=== PATIENT | female | born 1940 | race Caucasian/White ===

== ENCOUNTER 2017-05-26 02:30 | Inpatient (IN) | payer MEDICARE, MEDICAID ==
[2017-05-26 02:52] VITALS: BP 117/58
[2017-05-26] MEDS ORDERED: Magnesium Hydroxide (MOM) 30 mL UDC PO PRN (02:54)
[2017-05-26] MEDS ORDERED: Triamcinolone Acetonide 0.1% Cream 15 gm TP ONE (03:15)
[2017-05-26] MEDS: INSULIN ASPART SLIDING SCALE 100 UNITS/ML UNIT SUBQ SCH ×4 (06:39→21:09)
[2017-05-26] MEDS: Multivitamin Tab PO SCH (09:36)
[2017-05-26] MEDS: Acetaminophen 500 MG TAB PO PRN (09:41)
--- NOTE | 2017-05-26 14:59 | History & Physical ---
ADMIT DATE: 05/26/2017 HISTORY OF PRESENT ILLNESS: The patient was [facility] for ____ to herself from under Dr. Ayers. I was kindly asked to see the patient. Apparently, this patient initially ____ from [place] because of agitation and danger to others. The patient was sent to put ____ in the Emergency Room where she was seen with impression chronic headache, chronic schizophrenia and DrTrever ____ saw the patient and the patient was [facility]. The patient having paranoia and schizophrenia. The patient initially is from [facility]. The patient is known to have history of multiple problems including dementia, GERD and diabetes. The patient is on multiple medications including risperidone, Diflucan for arthritis and donepezil for her dementia, ____ omeprazole for her GERD and VESIcare for incontinence and insulin. PAST MEDICAL HISTORY: As enumerated above, history of headache, history of chronic anemia, history of azotemia. SYSTEM REVIEW: Difficult to obtain. The patient also has history of UTIs in the past, history of falls in the past. FAMILY HISTORY: Unremarkable. SOCIAL HISTORY: ____ [place] [facility]. PHYSICAL EXAMINATION: GENERAL: The patient on examination is confused, is little bit agitated, was ____. HEAD: Normal. ENT: Normal. NECK: Supple, nontender. LUNGS: Clear. CARDIOVASCULAR SYSTEM: S1, S2 heard. ABDOMEN: Soft. Bowel sounds are heard. CENTRAL NERVOUS SYSTEM: Grossly normal. DIAGNOSES: Severe schizophrenia, severe paranoid ideation, history of ____ and she is admitted. The patient known to have history of hypertension and history of diabetes, on insulin, history of urinary tract infections in the past, history of colon carcinoma in the past, history of ____, history of headache and history of arthritis and history of gastroesophageal reflux disease and history of dementia. PLAN: I will follow all the medical problems along with Dr. Ayers. JOB# [id number]
[2017-05-26] MEDS: Insulin Detemir 100 units/mL 10mL Vial SUBQ SCH (21:10)
--- NOTE | 2017-05-26 21:45 | Psychosocial Evaluation ---
DATE OF SERVICE: 05/26/2017 JUSTIFICATION FOR HOSPITALIZATION: The patient is currently in the hospital with history of schizophrenia, psychotic decompensation. CHIEF COMPLAINT: "I have a headache." HISTORY OF PRESENT ILLNESS: A 76-year-old female, currently in the hospital, history of schizophrenia, psychotic decompensation, anger, and irritability. The patient is confused, does not know why she is in the hospital. She states that she is here because she has a headache. Somewhat poorly oriented, labile, angry, yelling, stating that she feels depressed and frustrated. PAST PSYCHIATRIC HISTORY: Schizophrenia. FAMILY HISTORY: Unknown. SOCIAL HISTORY: The patient states she was born in [place]. She states she is not , no kids. No known drug, alcohol or tobacco history. Currently living in [facility]. MEDICATIONS: Reviewed. MEDICAL HISTORY: Please see full H and P. Also reviewed. MENTAL STATUS EXAMINATION: Stated age. Poor dentition. Fair eye contact. Speech is loud. Mood "I have a headache." Affect upset. Thought processes were tangential. Thought content, no overt SI or HI. Unclear psychotic symptoms, guarded, minimizing the reasons, she is here "I was brought here against my will." Insight and judgment diminished. Impulse control diminished. PROVISIONAL DIAGNOSES: Schizophrenia. Under medical, please see full H and P. ESTIMATED LENGTH OF STAY: 5-7 days. ASSESSMENT: The patient is requiring inpatient hospitalization, psychotic decompensation, anger, irritability, agitation, unable to be cared for at a lower level of care. PLAN: We will continue to monitor. We will adjust medications. Current regimen was reviewed. Currently on Risperdal 1 mg daily. We will likely add a second dose or add Namenda to her regimen. TREATMENT PLAN: Includes group as well as milieu therapy. CONDITIONS FOR DISCHARGE: Improved mood, improved affect, cessation of any SI or HI, better control of her psychotic symptoms and better control of agitation. [facility]# [id number]
[2017-05-27] MEDS: INSULIN ASPART SLIDING SCALE 100 UNITS/ML UNIT SUBQ SCH ×4 (06:39→21:04)
--- NOTE | 2017-05-27 10:45 | Diagnostic Imaging Report ---
CHEST X-RAY: AP view INDICATION: Pneumonia COMPARISON: 03/25/15 FINDINGS: Chronic lung changes are seen with no focal consolidation or effusions. Heart size is normal. Degenerative changes of the spine are noted. IMPRESSION: Chronic lung changes with no focal consolidation identified.
[2017-05-27] MEDS: Multivitamin Tab PO SCH (10:46)
[2017-05-27] MEDS: Acetaminophen 500 MG TAB PO PRN (14:15)
--- NOTE | 2017-05-27 16:07 | General Progress Note ---
Subjective - Review of Systems Events since last encounter: patient remains confused , irritable Objective - Results Recent Labs: Laboratory Last Values POC Glucose 193 MG/DL (70 - 105) H 05/27/17 11:32 Hemoglobin A1c % 7.1 % (4.0-6.0) H 05/26/17 06:56 - Physical Exam Vitals and I&O: Vital Signs Temp 97.6 F 05/27/17 15:53 Pulse 70 05/27/17 15:53 Resp 18 05/27/17 15:53 BP 131/59 05/27/17 15:53 Pulse Ox 95 05/27/17 15:53 Intake & Output 05/26/17 05/27/17 05/27/17 18:59 06:59 18:59 Intake Total 1000 240 Balance 1000 240 Intake: Oral 1000 240 Other: # Voids 4 2 # Bowel Movements 1 0 Active Medications: Current Medications Acetaminophen (Tylenol Extra Strength) 500 mg PO Q4H PRN PRN Reason: Pain (Mild) Stop: 07/25/17 03:06 Last Admin: 05/27/17 14:15 Dose: 500 mg Donepezil HCl (Aricept) 5 mg PO DAILY [facility] Stop: 07/25/17 08:59 Last Admin: 05/27/17 10:46 Dose: 5 mg Ibuprofen (Motrin) 400 mg PO Q8H PRN PRN Reason: Pain (Moderate) Stop: 07/25/17 03:05 Insulin Aspart (Novolog Insulin Sliding Scale) 0 units SUBQ ACHS [facility] PRN Reason: Protocol Stop: 07/25/17 07:29 Last Admin: 05/27/17 11:41 Dose: 2 units Insulin Detemir (Levemir Insulin) 40 units SUBQ HS [facility] PRN Reason: Protocol Stop: 07/25/17 20:59 Last Admin: 05/26/17 21:10 Dose: 40 units Lorazepam (Ativan) 0.5 mg PO Q6H PRN; Protocol PRN Reason: Anxiety/Agitation Stop: 07/25/17 02:53 Last Admin: 05/26/17 17:09 Dose: 0.5 mg Magnesium Hydroxide (Milk Of Magnesia) 30 ml PO HS PRN PRN Reason: Constipation Stop: 07/25/17 02:53 Memantine (Namenda) 5 mg PO DAILY [facility] Stop: 07/25/17 08:59 Last Admin: 05/27/17 10:46 Dose: 5 mg Multivitamins/Vitamin C (Theragran) 1 tab PO DAILY [facility] Stop: 07/25/17 08:59 Last Admin: 05/27/17 10:46 Dose: 1 tab Risperidone (Risperdal) 1 mg PO DAILY [facility] PRN Reason: Protocol Stop: 07/25/17 08:59 Last Admin: 05/27/17 10:46 Dose: 1 mg Zolpidem Tartrate (Ambien) 5 mg PO HS PRN PRN Reason: Insomnia Stop: 07/25/17 02:53 General: No acute distress HEENT: Atraumatic Cardiovascular: Regular rate Abdomen: Bowel sounds - Procedures Procedures: Procedures Procedure Code Date GROUP PSYCHOTHERAPY 56875 02/29/16 GROUP PSYCHOTHERAPY GZHZZZZ 02/29/16 OTHER GROUP THERAPY 94.44 03/25/15 Assessment/Plan - Problem List Patient Problems: All Active Problems Diabetes (Acute) E11.9 Hallucination (Acute) R44.3 Hypertension (Acute) I10 Mental health problem (Acute) F48.9 Psychosis (Acute) F29 - Plan Plan: as per psych as problems arise will monitor
[2017-05-27] MEDS: Insulin Detemir 100 units/mL 10mL Vial SUBQ SCH (21:04)
--- NOTE | 2017-05-28 02:34 | Progress Notes ---
DATE: 05/27/[address] Ayers. This is a 76-year-old female who was admitted yesterday with a history of schizophrenia. She has psychotic decompensation because of complaints of headache. The patient was agitated, angry, irritable, confused and not able to tell me why she was in the hospital, where she is, because she does have a headache. She was fully oriented, labile, angry, yelling and screaming. She has been started on Aricept 5 mg at bedtime, Namenda 5 mg daily and Risperdal 1 mg daily with no side effects, no sedation, no nausea, no extrapyramidal symptoms. I will be asking the medical doctor, Dr. Skinner to consult regarding her complaint of headache and so far no side effects, no sedation, no nausea, no extrapyramidal symptoms. We will continue to work with the patient in group therapy, milieu therapy, adjust the medication as needed. JOB# [id number]
--- NOTE | 2017-05-28 03:57 | Admit Criteria Form ---
Admit Criteria Forms - Admit Criteria Diagnosis: PSYCHIATRIC DISORDERS (Place 'X' for any and all applicable criteria): Ongoing inpatient care may be needed for 1 or more of the following(1)(2)(3)(4)( 6)(7)(8): [ ]I. Danger to self or others not manageable at lower level of care. [ ]II. Grave disability (eg, inability to perform self care necessary at lower level of care) [X]III. Agitation or inappropriate behavior interfering with care for primary condition (eg, attempting to discontinue lines or drains prematurely, unable to cooperate with respiratory care) [ ]IV. Severe disability or disorder indicated by ALL of the following: [ ]a) Severe behavioral health disorder-related symptoms or condition indicated by 1 or more of the following: [ ]i) Severe problem with cognition, memory, judgment, or impulse control [ ]ii) Severe clinical manifestations (eg, hallucinations, delusions, other acute psychotic symptoms, mik, extreme agitation or anxiety) [ ]b) Patient management at lower level of care is not feasible until acute intervention or modification is initiated. Extended stay beyond goal length of stay for the primary condition may be needed until ALLof the following are present(1)(2)(3)(4)(722)(23): [ ]a) Danger to self or others is absent or manageable at lower level of care [ ]b) Behavior crisis management, including physical or chemical restraints, is required and is not available at a lower level of care. [ ]c) Behavioral symptoms (e.g., agitation, somnolence, inappropriate behavior) are present, and are not manageable at a lower level of care. [ ]d) Patient cannot understand follow-up treatment and crisis plan. [ ]e) Provider and supports are sufficiently available at lower level of care. [ ]f) Patient can participate (e.g., verify absence of plan for harm) and is in needed of monitoring. The original [facility] [employer] content created by [facility] has been revised. The portions of the content which have been revised are identified through the use of italic text or in bold, and [employer] has neither reviewed nor approved the modified material. All other unmodified content is copyright [facility] [employer]. Please see references footnoted in the original [facility] edition 2017
[2017-05-28] MEDS: INSULIN ASPART SLIDING SCALE 100 UNITS/ML UNIT SUBQ SCH ×4 (06:40→21:49)
[2017-05-28] MEDS: Multivitamin Tab PO SCH (09:04)
--- NOTE | 2017-05-28 15:46 | General Progress Note ---
Objective - Results Recent Labs: Laboratory Last Values POC Glucose 216 MG/DL (70 - 105) H 05/28/17 11:40 Hemoglobin A1c % 7.1 % (4.0-6.0) H 05/26/17 06:56 - Physical Exam Vitals and I&O: Vital Signs Temp 98.6 F 05/28/17 06:03 Pulse 55 05/28/17 06:03 Resp 18 05/28/17 06:03 BP 122/52 05/28/17 06:03 Pulse Ox 96 05/28/17 06:03 Intake & Output 05/27/17 05/28/17 05/28/17 18:59 06:59 18:59 Intake Total 2400 120 Balance 2400 120 Intake: Oral 2400 120 Other: # Voids 4 3 # Bowel Movements 1 0 Active Medications: Current Medications Acetaminophen (Tylenol Extra Strength) 500 mg PO Q4H PRN PRN Reason: Pain (Mild) Stop: 07/25/17 03:06 Last Admin: 05/27/17 14:15 Dose: 500 mg Donepezil HCl (Aricept) 5 mg PO DAILY [facility] Stop: 07/25/17 08:59 Last Admin: 05/28/17 09:04 Dose: 5 mg Ibuprofen (Motrin) 400 mg PO Q8H PRN PRN Reason: Pain (Moderate) Stop: 07/25/17 03:05 Insulin Aspart (Novolog Insulin Sliding Scale) 0 units SUBQ ACHS LINA PRN Reason: Protocol Stop: 07/25/17 07:29 Last Admin: 05/28/17 11:58 Dose: 4 units Insulin Detemir (Levemir Insulin) 40 units SUBQ HS [facility] PRN Reason: Protocol Stop: 07/25/17 20:59 Last Admin: 05/27/17 21:04 Dose: 40 units Lorazepam (Ativan) 0.5 mg PO Q6H PRN; Protocol PRN Reason: Anxiety/Agitation Stop: 07/25/17 02:53 Last Admin: 05/28/17 09:14 Dose: 0.5 mg Magnesium Hydroxide (Milk Of Magnesia) 30 ml PO HS PRN PRN Reason: Constipation Stop: 07/25/17 02:53 Memantine (Namenda) 5 mg PO DAILY [facility] Stop: 07/25/17 08:59 Last Admin: 05/28/17 09:04 Dose: 5 mg Multivitamins/Vitamin C (Theragran) 1 tab PO DAILY [facility] Stop: 07/25/17 08:59 Last Admin: 05/28/17 09:04 Dose: 1 tab Risperidone (Risperdal) 1 mg PO DAILY [facility] PRN Reason: Protocol Stop: 07/25/17 08:59 Last Admin: 05/28/17 09:04 Dose: 1 mg Zolpidem Tartrate (Ambien) 5 mg PO HS PRN PRN Reason: Insomnia Stop: 07/25/17 02:53 - Procedures Procedures: Procedures Procedure Code Date GROUP PSYCHOTHERAPY 61848 02/29/16 GROUP PSYCHOTHERAPY GZHZZZZ 02/29/16 OTHER GROUP THERAPY 94.44 03/25/15 Assessment/Plan - Problem List Patient Problems: All Active Problems Diabetes (Acute) E11.9 Hallucination (Acute) R44.3 Hypertension (Acute) I10 Mental health problem (Acute) F48.9 Psychosis (Acute) F29 - Plan Plan: as per psych as problems arise will monitor
[2017-05-28] MEDS: Insulin Detemir 100 units/mL 10mL Vial SUBQ SCH (21:50)
[2017-05-29] MEDS: INSULIN ASPART SLIDING SCALE 100 UNITS/ML UNIT SUBQ SCH ×4 (06:39→21:06)
--- NOTE | 2017-05-29 08:16 | General Progress Note ---
Subjective - Review of Systems Events since last encounter: patient continues to be irritable Objective - Results Recent Labs: Laboratory Last Values POC Glucose 147 MG/DL (70 - 105) H 05/29/17 06:17 Hemoglobin A1c % 7.1 % (4.0-6.0) H 05/26/17 06:56 - Physical Exam Vitals and I&O: Vital Signs Temp 97.9 F 05/29/17 05:42 Pulse 64 05/29/17 05:42 Resp 20 05/29/17 05:42 BP 138/52 05/29/17 05:42 Pulse Ox 93 05/29/17 05:42 Intake & Output 05/28/17 05/29/17 05/29/17 18:59 06:59 18:59 Intake Total 2400 120 Balance 2400 120 Intake: Oral 2400 120 Other: # Voids 4 2 # Bowel Movements 1 1 Active Medications: Current Medications Acetaminophen (Tylenol Extra Strength) 500 mg PO Q4H PRN PRN Reason: Pain (Mild) Stop: 07/25/17 03:06 Last Admin: 05/27/17 14:15 Dose: 500 mg Donepezil HCl (Aricept) 5 mg PO DAILY [facility] Stop: 07/25/17 08:59 Last Admin: 05/28/17 09:04 Dose: 5 mg Ibuprofen (Motrin) 400 mg PO Q8H PRN PRN Reason: Pain (Moderate) Stop: 07/25/17 03:05 Insulin Aspart (Novolog Insulin Sliding Scale) 0 units SUBQ ACHS [facility] PRN Reason: Protocol Stop: 07/25/17 07:29 Last Admin: 05/29/17 06:39 Dose: Not Given Insulin Detemir (Levemir Insulin) 40 units SUBQ HS [facility] PRN Reason: Protocol Stop: 07/25/17 20:59 Last Admin: 05/28/17 21:50 Dose: 40 units Lorazepam (Ativan) 0.5 mg PO Q6H PRN; Protocol PRN Reason: Anxiety/Agitation Stop: 07/25/17 02:53 Last Admin: 05/28/17 09:14 Dose: 0.5 mg Magnesium Hydroxide (Milk Of Magnesia) 30 ml PO HS PRN PRN Reason: Constipation Stop: 07/25/17 02:53 Memantine (Namenda) 5 mg PO DAILY [facility] Stop: 07/25/17 08:59 Last Admin: 05/28/17 09:04 Dose: 5 mg Multivitamins/Vitamin C (Theragran) 1 tab PO DAILY [facility] Stop: 07/25/17 08:59 Last Admin: 05/28/17 09:04 Dose: 1 tab Risperidone (Risperdal) 1 mg PO BID [facility] PRN Reason: Protocol Stop: 07/28/17 08:59 Zolpidem Tartrate (Ambien) 5 mg PO HS PRN PRN Reason: Insomnia Stop: 07/25/17 02:53 General: No acute distress HEENT: Atraumatic Cardiovascular: Regular rate Abdomen: Bowel sounds - Procedures Procedures: Procedures Procedure Code Date GROUP PSYCHOTHERAPY 15062 02/29/16 GROUP PSYCHOTHERAPY GZHZZZZ 02/29/16 OTHER GROUP THERAPY 94.44 03/25/15 Assessment/Plan - Problem List Patient Problems: All Active Problems Diabetes (Acute) E11.9 Hallucination (Acute) R44.3 Hypertension (Acute) I10 Mental health problem (Acute) F48.9 Psychosis (Acute) F29 - Plan Plan: as per psych as problems arise will monitor
[2017-05-29] MEDS: Multivitamin Tab PO SCH (09:11)
[2017-05-29] MEDS: Insulin Detemir 100 units/mL 10mL Vial SUBQ SCH (21:03)
[2017-05-30] MEDS: INSULIN ASPART SLIDING SCALE 100 UNITS/ML UNIT SUBQ SCH ×4 (06:40→22:24)
[2017-05-30] MEDS: Multivitamin Tab PO SCH (08:23)
[2017-05-30] MEDS: Acetaminophen 500 MG TAB PO PRN (10:33)
--- NOTE | 2017-05-30 10:43 | General Progress Note ---
Subjective - Review of Systems Events since last encounter: patient agitated remains the same Objective - Results Recent Labs: Laboratory Last Values POC Glucose 134 MG/DL (70 - 105) H 05/30/17 06:22 Hemoglobin A1c % 7.1 % (4.0-6.0) H 05/26/17 06:56 - Physical Exam Vitals and I&O: Vital Signs Temp 98.2 F 05/29/17 14:00 Pulse 65 05/29/17 14:00 Resp 19 05/29/17 20:00 BP 139/57 05/29/17 14:00 Pulse Ox 97 05/29/17 14:00 Intake & Output 05/29/17 05/30/17 05/30/17 18:59 06:59 18:59 Intake Total 1000 Balance 1000 Intake: Oral 1000 Other: # Voids 3 # Bowel Movements 1 Active Medications: Current Medications Acetaminophen (Tylenol Extra Strength) 500 mg PO Q4H PRN PRN Reason: Pain (Mild) Stop: 07/25/17 03:06 Last Admin: 05/30/17 10:33 Dose: 500 mg Donepezil HCl (Aricept) 5 mg PO DAILY [facility] Stop: 07/25/17 08:59 Last Admin: 05/30/17 08:24 Dose: 5 mg Ibuprofen (Motrin) 400 mg PO Q8H PRN PRN Reason: Pain (Moderate) Stop: 07/25/17 03:05 Last Admin: 05/29/17 09:11 Dose: 400 mg Insulin Aspart (Novolog Insulin Sliding Scale) 0 units SUBQ ACHS [facility] PRN Reason: Protocol Stop: 07/25/17 07:29 Last Admin: 05/30/17 06:40 Dose: Not Given Insulin Detemir (Levemir Insulin) 40 units SUBQ HS [facility] PRN Reason: Protocol Stop: 07/25/17 20:59 Last Admin: 05/29/17 21:03 Dose: 40 units Lorazepam (Ativan) 0.5 mg PO Q6H PRN PRN Reason: ANXIETY/AGITATION Stop: 07/28/17 12:07 Magnesium Hydroxide (Milk Of Magnesia) 30 ml PO HS PRN PRN Reason: Constipation Stop: 07/25/17 02:53 Memantine (Namenda) 5 mg PO DAILY [facility] Stop: 07/25/17 08:59 Last Admin: 05/30/17 08:24 Dose: 5 mg Multivitamins/Vitamin C (Theragran) 1 tab PO DAILY [facility] Stop: 07/25/17 08:59 Last Admin: 05/30/17 08:23 Dose: 1 tab Risperidone (Risperdal) 1 mg PO BID [facility] PRN Reason: Protocol Stop: 07/28/17 08:59 Last Admin: 05/30/17 08:24 Dose: 1 mg Zolpidem Tartrate (Ambien) 5 mg PO HS PRN PRN Reason: Insomnia Stop: 07/25/17 02:53 General: No acute distress Cardiovascular: Regular rate Abdomen: Bowel sounds - Procedures Procedures: Procedures Procedure Code Date GROUP PSYCHOTHERAPY 50254 02/29/16 GROUP PSYCHOTHERAPY GZHZZZZ 02/29/16 OTHER GROUP THERAPY 94.44 03/25/15 Assessment/Plan - Problem List Patient Problems: All Active Problems Diabetes (Acute) E11.9 Hallucination (Acute) R44.3 Hypertension (Acute) I10 Mental health problem (Acute) F48.9 Psychosis (Acute) F29 - Plan Plan: as per psych as problems arise will monitor
[2017-05-30] MEDS: Insulin Detemir 100 units/mL 10mL Vial SUBQ SCH (22:24)
[2017-05-31] MEDS: INSULIN ASPART SLIDING SCALE 100 UNITS/ML UNIT SUBQ SCH ×4 (06:38→20:50)
[2017-05-31] MEDS: Multivitamin Tab PO SCH (09:15)
[2017-05-31] MEDS: Acetaminophen 500 MG TAB PO PRN (09:18)
--- NOTE | 2017-05-31 09:59 | General Progress Note ---
Subjective - Review of Systems Events since last encounter: no change Objective - Results Recent Labs: Laboratory Last Values POC Glucose 149 MG/DL (70 - 105) H 05/31/17 06:37 Hemoglobin A1c % 7.1 % (4.0-6.0) H 05/26/17 06:56 - Physical Exam Vitals and I&O: Vital Signs Temp 98.7 F 05/31/17 07:04 Pulse 72 05/31/17 07:04 Resp 19 05/31/17 07:04 BP 167/69 05/31/17 07:04 Pulse Ox 99 05/31/17 07:04 Intake & Output 05/30/17 05/31/17 05/31/17 18:59 06:59 18:59 Weight (lbs) 77.746 kg Other: # Voids 1 Active Medications: Current Medications Acetaminophen (Tylenol Extra Strength) 500 mg PO Q4H PRN PRN Reason: Pain (Mild) Stop: 07/25/17 03:06 Last Admin: 05/31/17 09:18 Dose: 500 mg Donepezil HCl (Aricept) 5 mg PO DAILY [facility] Stop: 07/25/17 08:59 Last Admin: 05/31/17 09:15 Dose: 5 mg Ibuprofen (Motrin) 400 mg PO Q8H PRN PRN Reason: Pain (Moderate) Stop: 07/25/17 03:05 Last Admin: 05/29/17 09:11 Dose: 400 mg Insulin Aspart (Novolog Insulin Sliding Scale) 0 units SUBQ ACHS [facility] PRN Reason: Protocol Stop: 07/25/17 07:29 Last Admin: 05/31/17 06:38 Dose: Not Given Insulin Detemir (Levemir Insulin) 40 units SUBQ HS [facility] PRN Reason: Protocol Stop: 07/25/17 20:59 Last Admin: 05/30/17 22:24 Dose: 40 units Lorazepam (Ativan) 0.5 mg PO Q6H PRN PRN Reason: ANXIETY/AGITATION Stop: 07/28/17 12:07 Magnesium Hydroxide (Milk Of Magnesia) 30 ml PO HS PRN PRN Reason: Constipation Stop: 07/25/17 02:53 Memantine (Namenda) 5 mg PO DAILY [facility] Stop: 07/25/17 08:59 Last Admin: 05/31/17 09:15 Dose: 5 mg Multivitamins/Vitamin C (Theragran) 1 tab PO DAILY [facility] Stop: 07/25/17 08:59 Last Admin: 05/31/17 09:15 Dose: 1 tab Risperidone (Risperdal) 1 mg PO BID [facility] PRN Reason: Protocol Stop: 07/28/17 08:59 Last Admin: 05/31/17 09:15 Dose: 1 mg Zolpidem Tartrate (Ambien) 5 mg PO HS PRN PRN Reason: Insomnia Stop: 07/25/17 02:53 General: No acute distress HEENT: Atraumatic Neck: Supple Cardiovascular: Regular rate Abdomen: Bowel sounds Neurological: Normal gait - Procedures Procedures: Procedures Procedure Code Date GROUP PSYCHOTHERAPY 58966 02/29/16 GROUP PSYCHOTHERAPY GZHZZZZ 02/29/16 OTHER GROUP THERAPY 94.44 03/25/15 Assessment/Plan - Problem List Patient Problems: All Active Problems Diabetes (Acute) E11.9 Hallucination (Acute) R44.3 Hypertension (Acute) I10 Mental health problem (Acute) F48.9 Psychosis (Acute) F29 - Plan Plan: as per psych as problems arise will monitor Nutritional Asmnt/Malnutr-PDOC - Dietary Evaluation Malnutrition Findings (Please click <Entered> for more info): Nutritional Asmnt/Malnutrition Start: 05/30/17 12: 19 Text: Status: Complete Freq: Document 05/30/17 12:19 GSUN (Rec: 05/30/17 12:37 [email or web address] [email or web address]) Nutritional Asmnt/Malnutrition Patient General Information Nutritional Screening Moderate Risk Screening Diagnosis Severe schizophrenia, severe pranoid ideation Pertinent Medical Hx/Surgical Hx Dementia, GERD, DM, arthritis, hx headache, hx chornic anemia, hx azotemia, hx HTN, hx UTI, hx colon carcinoma Subjective Information 76 year old female from SNF. Spoke to pt resting in bed. Pt was pleasant, provided short responses. Unable to provide DM edu due to cognition. Avg PO intake 92% of meals since adm, meeting nutritional needs . Pt denied nutritional concerns at this time. Pt appeared overweight. Most teeth intact, no difficulties eating. Current Diet Order/ Nutrition Support Regular, HIMANSHU Pertinent Medications Novolog, Levemir, MOM, Theragran Pertinent Labs 05/26: A1c 7.1H 05/30: POC glucose 116-262 past 3 days. 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 Current %PO Good (75-100%) Estimated Nutritional Goals Calories/Kcals/Kg IBW 120lb/54.5kg Kcals Calculated 1363-1635kcal (25-30kcal/kg) Protein Calculated 55g (1g/kg) Fluid: ml 1363-1635ml (1ml/kcal) Nutritional Problem 1. Problem Problem Altered nutrition related laboratory values related to Etiology DM aeb Signs/Symptoms: A1c 7.1H, elevated POC glucose Intervention/Recommendation Comments 1. Recommend [id number], HIMANSHU. Expected Outcomes/Goals Expected Outcomes/Goals 1. PO intake continue to meet at least 75% of estimated nutritional needs.
[2017-05-31] MEDS: Insulin Detemir 100 units/mL 10mL Vial SUBQ SCH (20:50)
[2017-06-01] MEDS: INSULIN ASPART SLIDING SCALE 100 UNITS/ML UNIT SUBQ SCH ×4 (06:35→21:12)
[2017-06-01] MEDS: Multivitamin Tab PO SCH (10:01)
[2017-06-01] MEDS: Insulin Detemir 100 units/mL 10mL Vial SUBQ SCH (21:13)
[2017-06-02] MEDS: INSULIN ASPART SLIDING SCALE 100 UNITS/ML UNIT SUBQ SCH ×4 (06:30→20:40)
[2017-06-02] MEDS: Multivitamin Tab PO SCH (09:40)
--- NOTE | 2017-06-02 17:01 | General Progress Note ---
Subjective - Review of Systems Events since last encounter: no distress Objective - Results Recent Labs: Laboratory Last Values POC Glucose 148 MG/DL (70 - 105) H 06/02/17 12:05 Hemoglobin A1c % 7.1 % (4.0-6.0) H 05/26/17 06:56 - Physical Exam Vitals and I&O: Vital Signs Temp 97.6 F 06/02/17 14:00 Pulse 72 06/02/17 14:00 Resp 20 06/02/17 14:00 BP 140/66 06/02/17 14:00 Pulse Ox 98 06/02/17 14:00 Intake & Output 06/01/17 06/02/17 06/02/17 18:59 06:59 18:59 Intake Total 900 120 Balance 900 120 Intake: Oral 900 120 Other: # Voids 4 4 # Bowel Movements 1 Stool Characteristics Formed Active Medications: Current Medications Acetaminophen (Tylenol Extra Strength) 500 mg PO Q4H PRN PRN Reason: Pain (Mild) Stop: 07/25/17 03:06 Last Admin: 05/31/17 09:18 Dose: 500 mg Donepezil HCl (Aricept) 5 mg PO DAILY [facility] Stop: 07/25/17 08:59 Last Admin: 06/02/17 09:40 Dose: 5 mg Ibuprofen (Motrin) 400 mg PO Q8H PRN PRN Reason: Pain (Moderate) Stop: 07/25/17 03:05 Last Admin: 05/29/17 09:11 Dose: 400 mg Insulin Aspart (Novolog Insulin Sliding Scale) 0 units SUBQ ACHS [facility] PRN Reason: Protocol Stop: 07/25/17 07:29 Last Admin: 06/02/17 12:12 Dose: Not Given Insulin Detemir (Levemir Insulin) 40 units SUBQ HS [facility] PRN Reason: Protocol Stop: 07/25/17 20:59 Last Admin: 06/01/17 21:13 Dose: 40 units Lorazepam (Ativan) 0.5 mg PO Q6H PRN PRN Reason: ANXIETY/AGITATION Stop: 07/28/17 12:07 Magnesium Hydroxide (Milk Of Magnesia) 30 ml PO HS PRN PRN Reason: Constipation Stop: 07/25/17 02:53 Memantine (Namenda) 5 mg PO BID [facility] Stop: 07/31/17 16:59 Last Admin: 06/02/17 16:46 Dose: 5 mg Multivitamins/Vitamin C (Theragran) 1 tab PO DAILY [facility] Stop: 07/25/17 08:59 Last Admin: 06/02/17 09:40 Dose: 1 tab Risperidone (Risperdal) 1.25 mg PO BID [facility] PRN Reason: Protocol Stop: 08/01/17 11:44 Last Admin: 06/02/17 16:46 Dose: 1.25 mg Zolpidem Tartrate (Ambien) 5 mg PO HS PRN PRN Reason: Insomnia Stop: 07/25/17 02:53 General: Cooperative, No acute distress Cardiovascular: Regular rate - Procedures Procedures: Procedures Procedure Code Date GROUP PSYCHOTHERAPY 31366 02/29/16 GROUP PSYCHOTHERAPY GZHZZZZ 02/29/16 OTHER GROUP THERAPY 94.44 03/25/15 Assessment/Plan - Problem List Patient Problems: All Active Problems Diabetes (Acute) E11.9 Hallucination (Acute) R44.3 Hypertension (Acute) I10 Mental health problem (Acute) F48.9 Psychosis (Acute) F29 - Plan Plan: as per psych as problems arise will monitor Nutritional Asmnt/Malnutr-PDOC - Dietary Evaluation Malnutrition Findings (Please click <Entered> for more info): Nutritional Asmnt/Malnutrition Start: 05/30/17 12: 19 Text: Status: Complete Freq: Document 05/30/17 12:19 GSUN (Rec: 05/30/17 12:37 GSUN [email or web address]) Nutritional Asmnt/Malnutrition Patient General Information Nutritional Screening Moderate Risk Screening Diagnosis Severe schizophrenia, severe pranoid ideation Pertinent Medical Hx/Surgical Hx Dementia, GERD, DM, arthritis, hx headache, hx chornic anemia, hx azotemia, hx HTN, hx UTI, hx colon carcinoma Subjective Information 76 year old female from SNF. Spoke to pt resting in bed. Pt was pleasant, provided short responses. Unable to provide DM edu due to cognition. Avg PO intake 92% of meals since adm, meeting nutritional needs . Pt denied nutritional concerns at this time. Pt appeared overweight. Most teeth intact, no difficulties eating. Current Diet Order/ Nutrition Support Regular, HIMANSHU Pertinent Medications Novolog, Levemir, MOM, Theragran Pertinent Labs 05/26: A1c 7.1H 05/30: POC glucose 116-262 past 3 days. 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 Current %PO Good (75-100%) Estimated Nutritional Goals Calories/Kcals/Kg IBW 120lb/54.5kg Kcals Calculated 1363-1635kcal (25-30kcal/kg) Protein Calculated 55g (1g/kg) Fluid: ml 1363-1635ml (1ml/kcal) Nutritional Problem 1. Problem Problem Altered nutrition related laboratory values related to Etiology DM aeb Signs/Symptoms: A1c 7.1H, elevated POC glucose Intervention/Recommendation Comments 1. Recommend [id number], HIMANSHU. Expected Outcomes/Goals Expected Outcomes/Goals 1. PO intake continue to meet at least 75% of estimated nutritional needs.
[2017-06-02] MEDS: Insulin Detemir 100 units/mL 10mL Vial SUBQ SCH (20:41)
[2017-06-03] MEDS: INSULIN ASPART SLIDING SCALE 100 UNITS/ML UNIT SUBQ SCH ×4 (06:34→21:24)
[2017-06-03] MEDS: Multivitamin Tab PO SCH (08:31)
--- NOTE | 2017-06-03 12:44 | General Progress Note ---
Subjective - Review of Systems Events since last encounter: no distress Objective - Results Recent Labs: Laboratory Last Values POC Glucose 121 MG/DL (70 - 105) H 06/03/17 11:34 Hemoglobin A1c % 7.1 % (4.0-6.0) H 05/26/17 06:56 - Physical Exam Vitals and I&O: Vital Signs Temp 98.1 F 06/03/17 06:23 Pulse 64 06/03/17 10:00 Resp 19 06/03/17 10:00 BP 141/78 06/03/17 06:23 Pulse Ox 96 06/03/17 06:23 Intake & Output 06/02/17 06/03/17 06/03/17 18:59 06:59 18:59 Intake Total 900 240 Balance 900 240 Intake: Oral 900 240 Other: # Voids 4 1 # Bowel Movements 1 0 Stool Characteristics Formed Active Medications: Current Medications Acetaminophen (Tylenol Extra Strength) 500 mg PO Q4H PRN PRN Reason: Pain (Mild) Stop: 07/25/17 03:06 Last Admin: 05/31/17 09:18 Dose: 500 mg Donepezil HCl (Aricept) 5 mg PO DAILY [facility] Stop: 07/25/17 08:59 Last Admin: 06/03/17 08:32 Dose: 5 mg Ibuprofen (Motrin) 400 mg PO Q8H PRN PRN Reason: Pain (Moderate) Stop: 07/25/17 03:05 Last Admin: 05/29/17 09:11 Dose: 400 mg Insulin Aspart (Novolog Insulin Sliding Scale) 0 units SUBQ ACHS [facility] PRN Reason: Protocol Stop: 07/25/17 07:29 Last Admin: 06/03/17 11:40 Dose: Not Given Insulin Detemir (Levemir Insulin) 40 units SUBQ HS [facility] PRN Reason: Protocol Stop: 07/25/17 20:59 Last Admin: 06/02/17 20:41 Dose: 40 units Lorazepam (Ativan) 0.5 mg PO Q6H PRN PRN Reason: ANXIETY/AGITATION Stop: 07/28/17 12:07 Last Admin: 06/03/17 08:31 Dose: 0.5 mg Magnesium Hydroxide (Milk Of Magnesia) 30 ml PO HS PRN PRN Reason: Constipation Stop: 07/25/17 02:53 Memantine (Namenda) 5 mg PO BID [facility] Stop: 07/31/17 16:59 Last Admin: 06/03/17 08:31 Dose: 5 mg Multivitamins/Vitamin C (Theragran) 1 tab PO DAILY [facility] Stop: 07/25/17 08:59 Last Admin: 06/03/17 08:31 Dose: 1 tab Risperidone (Risperdal) 2 mg PO BID [facility] PRN Reason: Protocol Stop: 08/01/17 11:44 Zolpidem Tartrate (Ambien) 5 mg PO HS PRN PRN Reason: Insomnia Stop: 07/25/17 02:53 General: No acute distress HEENT: Atraumatic Neck: Thyromegaly Cardiovascular: Normal S1 - Procedures Procedures: Procedures Procedure Code Date GROUP PSYCHOTHERAPY 92348 02/29/16 GROUP PSYCHOTHERAPY GZHZZZZ 02/29/16 OTHER GROUP THERAPY 94.44 03/25/15 Assessment/Plan - Problem List Patient Problems: All Active Problems Diabetes (Acute) E11.9 Hallucination (Acute) R44.3 Hypertension (Acute) I10 Mental health problem (Acute) F48.9 Psychosis (Acute) F29 - Plan Plan: as per psych as problems arise will monitor Nutritional Asmnt/Malnutr-PDOC - Dietary Evaluation Malnutrition Findings (Please click <Entered> for more info): Nutritional Asmnt/Malnutrition Start: 05/30/17 12: 19 Text: Status: Complete Freq: Document 05/30/17 12:19 GSUN (Rec: 05/30/17 12:37 GSUN [email or web address]) Nutritional Asmnt/Malnutrition Patient General Information Nutritional Screening Moderate Risk Screening Diagnosis Severe schizophrenia, severe pranoid ideation Pertinent Medical Hx/Surgical Hx Dementia, GERD, DM, arthritis, hx headache, hx chornic anemia, hx azotemia, hx HTN, hx UTI, hx colon carcinoma Subjective Information 76 year old female from SNF. Spoke to pt resting in bed. Pt was pleasant, provided short responses. Unable to provide DM edu due to cognition. Avg PO intake 92% of meals since adm, meeting nutritional needs . Pt denied nutritional concerns at this time. Pt appeared overweight. Most teeth intact, no difficulties eating. Current Diet Order/ Nutrition Support Regular, HIMANSHU Pertinent Medications Novolog, Levemir, MOM, Theragran Pertinent Labs 05/26: A1c 7.1H 05/30: POC glucose 116-262 past 3 days. 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 Current %PO Good (75-100%) Estimated Nutritional Goals Calories/Kcals/Kg IBW 120lb/54.5kg Kcals Calculated 1363-1635kcal (25-30kcal/kg) Protein Calculated 55g (1g/kg) Fluid: ml 1363-1635ml (1ml/kcal) Nutritional Problem 1. Problem Problem Altered nutrition related laboratory values related to Etiology DM aeb Signs/Symptoms: A1c 7.1H, elevated POC glucose Intervention/Recommendation Comments 1. Recommend [id number], HIMANSHU. Expected Outcomes/Goals Expected Outcomes/Goals 1. PO intake continue to meet at least 75% of estimated nutritional needs.
[2017-06-03] MEDS: Insulin Detemir 100 units/mL 10mL Vial SUBQ SCH (21:24)
[2017-06-04] MEDS: INSULIN ASPART SLIDING SCALE 100 UNITS/ML UNIT SUBQ SCH ×4 (06:34→21:04)
[2017-06-04] MEDS: Multivitamin Tab PO SCH (09:39)
--- NOTE | 2017-06-04 10:24 | General Progress Note ---
Subjective - Review of Systems Events since last encounter: no distress Objective - Results Recent Labs: Laboratory Last Values POC Glucose 114 MG/DL (70 - 105) H 06/04/17 06:02 Hemoglobin A1c % 7.1 % (4.0-6.0) H 05/26/17 06:56 - Physical Exam Vitals and I&O: Vital Signs Temp 98.5 F 06/04/17 06:12 Pulse 60 06/04/17 06:12 Resp 19 06/04/17 06:12 BP 135/55 06/04/17 06:12 Pulse Ox 96 06/03/17 15:29 Intake & Output 06/03/17 06/04/17 06/04/17 18:59 06:59 18:59 Intake Total 1000 240 Balance 1000 240 Intake: Oral 1000 240 Other: # Voids 4 3 # Bowel Movements 1 0 Active Medications: Current Medications Acetaminophen (Tylenol Extra Strength) 500 mg PO Q4H PRN PRN Reason: Pain (Mild) Stop: 07/25/17 03:06 Last Admin: 05/31/17 09:18 Dose: 500 mg Donepezil HCl (Aricept) 5 mg PO DAILY [facility] Stop: 07/25/17 08:59 Last Admin: 06/04/17 09:40 Dose: 5 mg Ibuprofen (Motrin) 400 mg PO Q8H PRN PRN Reason: Pain (Moderate) Stop: 07/25/17 03:05 Last Admin: 05/29/17 09:11 Dose: 400 mg Insulin Aspart (Novolog Insulin Sliding Scale) 0 units SUBQ ACHS [facility] PRN Reason: Protocol Stop: 07/25/17 07:29 Last Admin: 06/04/17 06:34 Dose: Not Given Insulin Detemir (Levemir Insulin) 40 units SUBQ HS [facility] PRN Reason: Protocol Stop: 07/25/17 20:59 Last Admin: 06/03/17 21:24 Dose: 40 units Lorazepam (Ativan) 0.5 mg PO Q6H PRN PRN Reason: ANXIETY/AGITATION Stop: 07/28/17 12:07 Last Admin: 06/03/17 08:31 Dose: 0.5 mg Magnesium Hydroxide (Milk Of Magnesia) 30 ml PO HS PRN PRN Reason: Constipation Stop: 07/25/17 02:53 Last Admin: 06/03/17 17:16 Dose: 30 ml Memantine (Namenda) 5 mg PO BID [facility] Stop: 07/31/17 16:59 Last Admin: 06/04/17 09:39 Dose: 5 mg Multivitamins/Vitamin C (Theragran) 1 tab PO DAILY [facility] Stop: 07/25/17 08:59 Last Admin: 06/04/17 09:39 Dose: 1 tab Risperidone (Risperdal) 2 mg PO BID [facility] PRN Reason: Protocol Stop: 08/01/17 16:59 Last Admin: 06/04/17 09:39 Dose: 2 mg Zolpidem Tartrate (Ambien) 5 mg PO HS PRN PRN Reason: Insomnia Stop: 07/25/17 02:53 General: No acute distress HEENT: Atraumatic Cardiovascular: Regular rate - Procedures Procedures: Procedures Procedure Code Date GROUP PSYCHOTHERAPY 85540 02/29/16 GROUP PSYCHOTHERAPY GZHZZZZ 02/29/16 OTHER GROUP THERAPY 94.44 03/25/15 Assessment/Plan - Problem List Patient Problems: All Active Problems Diabetes (Acute) E11.9 Hallucination (Acute) R44.3 Hypertension (Acute) I10 Mental health problem (Acute) F48.9 Psychosis (Acute) F29 - Plan Plan: as per psych as problems arise will monitor Nutritional Asmnt/Malnutr-PDOC - Dietary Evaluation Malnutrition Findings (Please click <Entered> for more info): Nutritional Asmnt/Malnutrition Start: 05/30/17 12: 19 Text: Status: Complete Freq: Document 05/30/17 12:19 GSUN (Rec: 05/30/17 12:37 GSUN [email or web address]) Nutritional Asmnt/Malnutrition Patient General Information Nutritional Screening Moderate Risk Screening Diagnosis Severe schizophrenia, severe pranoid ideation Pertinent Medical Hx/Surgical Hx Dementia, GERD, DM, arthritis, hx headache, hx chornic anemia, hx azotemia, hx HTN, hx UTI, hx colon carcinoma Subjective Information 76 year old female from SNF. Spoke to pt resting in bed. Pt was pleasant, provided short responses. Unable to provide DM edu due to cognition. Avg PO intake 92% of meals since adm, meeting nutritional needs . Pt denied nutritional concerns at this time. Pt appeared overweight. Most teeth intact, no difficulties eating. Current Diet Order/ Nutrition Support Regular, HIMANSHU Pertinent Medications Novolog, Levemir, MOM, Theragran Pertinent Labs 05/26: A1c 7.1H 05/30: POC glucose 116-262 past 3 days. 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 Current %PO Good (75-100%) Estimated Nutritional Goals Calories/Kcals/Kg IBW 120lb/54.5kg Kcals Calculated 1363-1635kcal (25-30kcal/kg) Protein Calculated 55g (1g/kg) Fluid: ml 1363-1635ml (1ml/kcal) Nutritional Problem 1. Problem Problem Altered nutrition related laboratory values related to Etiology DM aeb Signs/Symptoms: A1c 7.1H, elevated POC glucose Intervention/Recommendation Comments 1. Recommend [id number], HIMANSHU. Expected Outcomes/Goals Expected Outcomes/Goals 1. PO intake continue to meet at least 75% of estimated nutritional needs.
[2017-06-04] MEDS: Insulin Detemir 100 units/mL 10mL Vial SUBQ SCH (21:05)
[2017-06-05] MEDS: INSULIN ASPART SLIDING SCALE 100 UNITS/ML UNIT SUBQ SCH ×4 (06:33→20:17)
--- NOTE | 2017-06-05 09:12 | General Progress Note ---
Subjective - Review of Systems Events since last encounter: no distress Objective - Results Recent Labs: Laboratory Last Values POC Glucose 96 MG/DL (70 - 105) 06/05/17 05:54 Hemoglobin A1c % 7.1 % (4.0-6.0) H 05/26/17 06:56 - Physical Exam Vitals and I&O: Vital Signs Temp 97.8 F 06/05/17 06:00 Pulse 58 06/05/17 06:00 Resp 19 06/05/17 06:00 BP 130/51 06/05/17 06:00 Pulse Ox 97 06/05/17 06:00 Intake & Output 06/04/17 06/05/17 06/05/17 18:59 06:59 18:59 Intake Total 900 480 Balance 900 480 Intake: Oral 900 480 Other: # Voids 4 1 # Bowel Movements 1 Active Medications: Current Medications Acetaminophen (Tylenol Extra Strength) 500 mg PO Q4H PRN PRN Reason: Pain (Mild) Stop: 07/25/17 03:06 Last Admin: 05/31/17 09:18 Dose: 500 mg Donepezil HCl (Aricept) 5 mg PO DAILY [facility] Stop: 07/25/17 08:59 Last Admin: 06/04/17 09:40 Dose: 5 mg Ibuprofen (Motrin) 400 mg PO Q8H PRN PRN Reason: Pain (Moderate) Stop: 07/25/17 03:05 Last Admin: 06/04/17 16:41 Dose: 400 mg Insulin Aspart (Novolog Insulin Sliding Scale) 0 units SUBQ ACHS [facility] PRN Reason: Protocol Stop: 07/25/17 07:29 Last Admin: 06/05/17 06:33 Dose: Not Given Insulin Detemir (Levemir Insulin) 40 units SUBQ HS [facility] PRN Reason: Protocol Stop: 07/25/17 20:59 Last Admin: 06/04/17 21:05 Dose: 40 units Lorazepam (Ativan) 0.5 mg PO Q6H PRN PRN Reason: ANXIETY/AGITATION Stop: 07/28/17 12:07 Last Admin: 06/03/17 08:31 Dose: 0.5 mg Magnesium Hydroxide (Milk Of Magnesia) 30 ml PO HS PRN PRN Reason: Constipation Stop: 07/25/17 02:53 Last Admin: 07/03/17 17:16 Dose: 30 ml Memantine (Namenda) 10 mg PO BID [facility] Stop: 07/31/17 08:59 Multivitamins/Vitamin C (Theragran) 1 tab PO DAILY [facility] Stop: 07/25/17 08:59 Last Admin: 06/04/17 09:39 Dose: 1 tab Risperidone (Risperdal) 2 mg PO BID [facility] PRN Reason: Protocol Stop: 08/01/17 16:59 Last Admin: 06/04/17 16:41 Dose: 2 mg Zolpidem Tartrate (Ambien) 5 mg PO HS PRN PRN Reason: Insomnia Stop: 07/25/17 02:53 General: No acute distress HEENT: Atraumatic Cardiovascular: Regular rate, Normal S1, Normal S2 - Procedures Procedures: Procedures Procedure Code Date GROUP PSYCHOTHERAPY 93603 02/29/16 GROUP PSYCHOTHERAPY GZHZZZZ 02/29/16 OTHER GROUP THERAPY 94.44 03/25/15 Assessment/Plan - Problem List Patient Problems: All Active Problems Diabetes (Acute) E11.9 Hallucination (Acute) R44.3 Hypertension (Acute) I10 Mental health problem (Acute) F48.9 Psychosis (Acute) F29 - Plan Plan: as per psych as problems arise will monitor Nutritional Asmnt/Malnutr-PDOC - Dietary Evaluation Malnutrition Findings (Please click <Entered> for more info): Nutritional Asmnt/Malnutrition Start: 05/30/17 12: 19 Text: Status: Complete Freq: Document 05/30/17 12:19 GSUN (Rec: 05/30/17 12:37 GSUN [email or web address]) Nutritional Asmnt/Malnutrition Patient General Information Nutritional Screening Moderate Risk Screening Diagnosis Severe schizophrenia, severe pranoid ideation Pertinent Medical Hx/Surgical Hx Dementia, GERD, DM, arthritis, hx headache, hx chornic anemia, hx azotemia, hx HTN, hx UTI, hx colon carcinoma Subjective Information 76 year old female from SNF. Spoke to pt resting in bed. Pt was pleasant, provided short responses. Unable to provide DM edu due to cognition. Avg PO intake 92% of meals since adm, meeting nutritional needs . Pt denied nutritional concerns at this time. Pt appeared overweight. Most teeth intact, no difficulties eating. Current Diet Order/ Nutrition Support Regular, HIMANSHU Pertinent Medications Novolog, Levemir, MOM, Theragran Pertinent Labs 05/26: A1c 7.1H 05/30: POC glucose 116-262 past 3 days. 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 Current %PO Good (75-100%) Estimated Nutritional Goals Calories/Kcals/Kg IBW 120lb/54.5kg Kcals Calculated 1363-1635kcal (25-30kcal/kg) Protein Calculated 55g (1g/kg) Fluid: ml 1363-1635ml (1ml/kcal) Nutritional Problem 1. Problem Problem Altered nutrition related laboratory values related to Etiology DM aeb Signs/Symptoms: A1c 7.1H, elevated POC glucose Intervention/Recommendation Comments 1. Recommend [id number], HIMANSHU. Expected Outcomes/Goals Expected Outcomes/Goals 1. PO intake continue to meet at least 75% of estimated nutritional needs.
[2017-06-05] MEDS: Multivitamin Tab PO SCH (09:22)
[2017-06-05] MEDS: Insulin Detemir 100 units/mL 10mL Vial SUBQ SCH (20:18)
[2017-06-06] MEDS: INSULIN ASPART SLIDING SCALE 100 UNITS/ML UNIT SUBQ SCH ×4 (06:30→20:56)
[2017-06-06] MEDS: Multivitamin Tab PO SCH (08:31)
--- NOTE | 2017-06-06 09:50 | General Progress Note ---
Subjective - Review of Systems Events since last encounter: no distress Objective - Results Recent Labs: Laboratory Last Values POC Glucose 219 MG/DL (70 - 105) H 06/06/17 05:58 Hemoglobin A1c % 7.1 % (4.0-6.0) H 05/26/17 06:56 - Physical Exam Vitals and I&O: Vital Signs Temp 98.2 F 06/06/17 06:22 Pulse 85 06/06/17 06:22 Resp 18 06/06/17 06:22 BP 131/69 06/06/17 06:22 Pulse Ox 96 06/06/17 06:22 Intake & Output 06/05/17 06/06/17 06/06/17 18:59 06:59 18:59 Intake Total 1000 120 Balance 1000 120 Intake: Oral 1000 120 Other: # Voids 3 3 # Bowel Movements 1 Stool Characteristics Formed Active Medications: Current Medications Acetaminophen (Tylenol Extra Strength) 500 mg PO Q4H PRN PRN Reason: Pain (Mild) Stop: 07/25/17 03:06 Last Admin: 05/31/17 09:18 Dose: 500 mg Donepezil HCl (Aricept) 5 mg PO DAILY [facility] Stop: 07/25/17 08:59 Last Admin: 06/06/17 08:31 Dose: 5 mg Ibuprofen (Motrin) 400 mg PO Q8H PRN PRN Reason: Pain (Moderate) Stop: 07/25/17 03:05 Last Admin: 06/04/17 16:41 Dose: 400 mg Insulin Aspart (Novolog Insulin Sliding Scale) 0 units SUBQ ACHS [facility] PRN Reason: Protocol Stop: 07/25/17 07:29 Last Admin: 06/06/17 06:30 Dose: 4 units Insulin Detemir (Levemir Insulin) 40 units SUBQ HS [facility] PRN Reason: Protocol Stop: 07/25/17 20:59 Last Admin: 06/05/17 20:18 Dose: 40 units Lorazepam (Ativan) 0.5 mg PO Q6H PRN PRN Reason: ANXIETY/AGITATION Stop: 07/28/17 12:07 Last Admin: 06/05/17 22:01 Dose: 0.5 mg Magnesium Hydroxide (Milk Of Magnesia) 30 ml PO HS PRN PRN Reason: Constipation Stop: 07/25/17 02:53 Last Admin: 06/03/17 17:16 Dose: 30 ml Memantine (Namenda) 10 mg PO BID [facility] Stop: 07/31/17 08:59 Last Admin: 06/06/17 08:31 Dose: 10 mg Multivitamins/Vitamin C (Theragran) 1 tab PO DAILY [facility] Stop: 07/25/17 08:59 Last Admin: 06/06/17 08:31 Dose: 1 tab Risperidone (Risperdal) 2 mg PO BID [facility] PRN Reason: Protocol Stop: 08/01/17 16:59 Last Admin: 06/06/17 08:31 Dose: 2 mg Zolpidem Tartrate (Ambien) 5 mg PO HS PRN PRN Reason: Insomnia Stop: 07/25/17 02:53 General: No acute distress HEENT: Atraumatic Cardiovascular: Regular rate, Normal S1, Normal S2 - Procedures Procedures: Procedures Procedure Code Date GROUP PSYCHOTHERAPY 11982 02/29/16 GROUP PSYCHOTHERAPY GZHZZZZ 02/29/16 OTHER GROUP THERAPY 94.44 03/25/15 Assessment/Plan - Problem List Patient Problems: All Active Problems Diabetes (Acute) E11.9 Hallucination (Acute) R44.3 Hypertension (Acute) I10 Mental health problem (Acute) F48.9 Psychosis (Acute) F29 - Plan Plan: as per psych as problems arise will monitor Nutritional Asmnt/Malnutr-PDOC - Dietary Evaluation Malnutrition Findings (Please click <Entered> for more info): Nutritional Asmnt/Malnutrition Start: 05/30/17 12: 19 Text: Status: Complete Freq: Document 05/30/17 12:19 GSUN (Rec: 05/30/17 12:37 GSUN [email or web address]) Nutritional Asmnt/Malnutrition Patient General Information Nutritional Screening Moderate Risk Screening Diagnosis Severe schizophrenia, severe pranoid ideation Pertinent Medical Hx/Surgical Hx Dementia, GERD, DM, arthritis, hx headache, hx chornic anemia, hx azotemia, hx HTN, hx UTI, hx colon carcinoma Subjective Information 76 year old female from SNF. Spoke to pt resting in bed. Pt was pleasant, provided short responses. Unable to provide DM edu due to cognition. Avg PO intake 92% of meals since adm, meeting nutritional needs . Pt denied nutritional concerns at this time. Pt appeared overweight. Most teeth intact, no difficulties eating. Current Diet Order/ Nutrition Support Regular, HIMANSHU Pertinent Medications Novolog, Levemir, MOM, Theragran Pertinent Labs 05/26: A1c 7.1H 05/30: POC glucose 116-262 past 3 days. 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 Current %PO Good (75-100%) Estimated Nutritional Goals Calories/Kcals/Kg IBW 120lb/54.5kg Kcals Calculated 1363-1635kcal (25-30kcal/kg) Protein Calculated 55g (1g/kg) Fluid: ml 1363-1635ml (1ml/kcal) Nutritional Problem 1. Problem Problem Altered nutrition related laboratory values related to Etiology DM aeb Signs/Symptoms: A1c 7.1H, elevated POC glucose Intervention/Recommendation Comments 1. Recommend [id number], HIMANSHU. Expected Outcomes/Goals Expected Outcomes/Goals 1. PO intake continue to meet at least 75% of estimated nutritional needs.
[2017-06-06] MEDS: Insulin Detemir 100 units/mL 10mL Vial SUBQ SCH (20:59)
[2017-06-07] MEDS: INSULIN ASPART SLIDING SCALE 100 UNITS/ML UNIT SUBQ SCH ×2 (06:40→12:34)
[2017-06-07] MEDS: Multivitamin Tab PO SCH (08:56)
--- NOTE | 2017-06-07 09:36 | General Progress Note ---
Subjective - Review of Systems Events since last encounter: no change since last seen Objective - Results Recent Labs: Laboratory Last Values POC Glucose 117 MG/DL (70 - 105) H 06/07/17 05:21 Hemoglobin A1c % 7.1 % (4.0-6.0) H 05/26/17 06:56 - Physical Exam Vitals and I&O: Vital Signs Temp 98.9 F 06/07/17 06:32 Pulse 61 06/07/17 06:32 Resp 18 06/07/17 06:32 BP 160/51 06/07/17 06:32 Pulse Ox 94 06/07/17 06:32 Intake & Output 06/06/17 06/07/17 06/07/17 18:59 06:59 18:59 Intake Total 1000 120 Balance 1000 120 Weight (lbs) 75.568 kg Intake: Oral 1000 120 Other: # Voids 4 3 # Bowel Movements 1 0 Active Medications: Current Medications Acetaminophen (Tylenol Extra Strength) 500 mg PO Q4H PRN PRN Reason: Pain (Mild) Stop: 07/25/17 03:06 Last Admin: 05/31/17 09:18 Dose: 500 mg Donepezil HCl (Aricept) 5 mg PO DAILY LINA Stop: 07/25/17 08:59 Last Admin: 06/07/17 08:56 Dose: 5 mg Ibuprofen (Motrin) 400 mg PO Q8H PRN PRN Reason: Pain (Moderate) Stop: 07/25/17 03:05 Last Admin: 06/04/17 16:41 Dose: 400 mg Insulin Aspart (Novolog Insulin Sliding Scale) 0 units SUBQ ACHS LINA PRN Reason: Protocol Stop: 07/25/17 07:29 Last Admin: 06/07/17 06:40 Dose: Not Given Insulin Detemir (Levemir Insulin) 40 units SUBQ HS LINA PRN Reason: Protocol Stop: 07/25/17 20:59 Last Admin: 06/06/17 20:59 Dose: 40 units Lorazepam (Ativan) 0.5 mg PO Q6H PRN PRN Reason: ANXIETY/AGITATION Stop: 07/28/17 12:07 Last Admin: 06/05/17 22:01 Dose: 0.5 mg Magnesium Hydroxide (Milk Of Magnesia) 30 ml PO HS PRN PRN Reason: Constipation Stop: 07/25/17 02:53 Last Admin: 06/03/17 17:16 Dose: 30 ml Memantine (Namenda) 10 mg PO BID LINA Stop: 07/31/17 08:59 Last Admin: 06/07/17 08:56 Dose: 10 mg Multivitamins/Vitamin C (Theragran) 1 tab PO DAILY LINA Stop: 07/25/17 08:59 Last Admin: 06/07/17 08:56 Dose: 1 tab Risperidone (Risperdal) 2 mg PO BID LINA PRN Reason: Protocol Stop: 08/01/17 16:59 Last Admin: 06/07/17 08:56 Dose: 2 mg Zolpidem Tartrate (Ambien) 5 mg PO HS PRN PRN Reason: Insomnia Stop: 07/25/17 02:53 General: No acute distress HEENT: Atraumatic Neck: Thyromegaly Cardiovascular: Regular rate, Normal S1, Normal S2 Abdomen: Bowel sounds Neurological: Normal gait - Procedures Procedures: Procedures Procedure Code Date GROUP PSYCHOTHERAPY 97500 02/29/16 GROUP PSYCHOTHERAPY GZHZZZZ 02/29/16 OTHER GROUP THERAPY 94.44 03/25/15 Assessment/Plan - Problem List Patient Problems: All Active Problems Diabetes (Acute) E11.9 Hallucination (Acute) R44.3 Hypertension (Acute) I10 Mental health problem (Acute) F48.9 Psychosis (Acute) F29 - Plan Plan: as per psych as problems arise will monitor Nutritional Asmnt/Malnutr-PDOC - Dietary Evaluation Malnutrition Findings (Please click <Entered> for more info): Nutritional Asmnt/Malnutrition Start: 05/30/17 12: 19 Text: Status: Complete Freq: Document 05/30/17 12:19 GSUN (Rec: 05/30/17 12:37 GSUN [email or web address]) Nutritional Asmnt/Malnutrition Patient General Information Nutritional Screening Moderate Risk Screening Diagnosis Severe schizophrenia, severe pranoid ideation Pertinent Medical Hx/Surgical Hx Dementia, GERD, DM, arthritis, hx headache, hx chornic anemia, hx azotemia, hx HTN, hx UTI, hx colon carcinoma Subjective Information 76 year old female from SNF. Spoke to pt resting in bed. Pt was pleasant, provided short responses. Unable to provide DM edu due to cognition. Avg PO intake 92% of meals since adm, meeting nutritional needs . Pt denied nutritional concerns at this time. Pt appeared overweight. Most teeth intact, no difficulties eating. Current Diet Order/ Nutrition Support Regular, HIMANSHU Pertinent Medications Novolog, Levemir, MOM, Theragran Pertinent Labs 05/26: A1c 7.1H 05/30: POC glucose 116-262 past 3 days. 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 Current %PO Good (75-100%) Estimated Nutritional Goals Calories/Kcals/Kg IBW 120lb/54.5kg Kcals Calculated 1363-1635kcal (25-30kcal/kg) Protein Calculated 55g (1g/kg) Fluid: ml 1363-1635ml (1ml/kcal) Nutritional Problem 1. Problem Problem Altered nutrition related laboratory values related to Etiology DM aeb Signs/Symptoms: A1c 7.1H, elevated POC glucose Intervention/Recommendation Comments 1. Recommend [id number], HIMANSHU. Expected Outcomes/Goals Expected Outcomes/Goals 1. PO intake continue to meet at least 75% of estimated nutritional needs.
== END 2017-06-07 15:00 | disposition home or self-care (01) | DRG 884 ==
LOC: GERO 02:30
PROVIDERS: ADMIT Psychiatry & Neurology Psychiatry; ATTEND Psychiatry & Neurology Psychiatry
DX: F03.90 Unspecified dementia, unspecified severity, without behavioral disturbance, psychotic disturbance, mood disturbance, and anxiety (principal); F20.0 Paranoid schizophrenia; E11.9 Type 2 diabetes mellitus without complications; I10 Essential (primary) hypertension; M19.90 Unspecified osteoarthritis, unspecified site; K21.9 Gastro-esophageal reflux disease without esophagitis; R51 Headache; Z85.038 Personal history of other malignant neoplasm of large intestine; F29 Unspecified psychosis not due to a substance or known physiological condition
CPT/HCPCS: 36415-UA; 71010-TC; 82948-90; 83036-90; 93005; J1815; Z7610

== ENCOUNTER 2018-01-07 20:46 | Emergency (ER) | payer MEDICARE, MEDICAID ==
--- NOTE | 2018-01-07 21:31 | ED Physician Chart ---
ED Chief Complaint/HPI - Patient Information Date Seen:: 01/07/18 Time Seen:: 21:31 Chief Complaint:: Increased agitation History of Present Illness:: 77 yo female was brought from SNF to ER for evaluation of increased agitation and confusion. Allergies:: Allergies Allergy/AdvReac Type Severity Reaction Status Date / Time No Known Allergies Allergy Verified 01/07/18 20:55 Vitals:: Vital Signs - 8 hr 01/07/18 20:50 Temp 97.5 F HR 76 RR 20 BP 128/68 O2 Sat % 100 ED Review of Systems - Review of Systems General/Constitutional: No fever Skin: No bruising Head: No headache Eyes: No pain ENT: No nasal drainage Neck: No neck pain Cardio Vascular: No chest pain Pulmonary: No SOB GI: No nausea, No vomiting Musculoskeletal: No bone or joint pain Psychiatric: Prior psych history Neurological: No focal symptoms ED Past Medical History - Past Medical History Past Medical History: HTN, DM, CAD, PUD/GERD, Dementia Social History: Non Smoker, No Alcohol, No Drug Use Psychiatricy History: Schizophrenia Family Medical History - Family Member Mother History Unknown: Yes Ethnicity: Unknown Living Status: Unknown Hx Family Cancer: No Hx Family Coronary Artery Disease: No Hx Family Congestive Heart Failure: No Hx Family Hypertension: No Hx Family Stroke: No Hx Family Diabetes: No Hx Family Seizures: No Hx Family Dementia: No Hx Family AIDS: No Hx Family HIV: No Hx Family COPD: No Hx Family Hepatitis: No Hx Family Psychiatric Problems: No Hx Family Tuberculosis: No ED Physical Exam - Physical Examination General/Constitutional: Awake Head: Atraumatic Eyes: PERRL Skin: No ecchymosis ENMT: Nasal exam nl Neck: No nuchal rigidity Respiratory: No Wheeze/Rhonchi/Rales Cardio Vascular: RRR, No murmur, gallop, rubs, NL S1 S2 GI: No tenderness/rebounding/guarding Extremities: normal strength in all extremities Neuro/Psych: No focal deficits ED Labs/Radiology/EKG Results - Lab Results Results: Laboratory Last Values WBC 6.0 Th/cmm (4.8-10.8) 01/07/18 21:44 RBC 3.98 Mil/cmm (3.80-5.20) 01/07/18 21:44 Hgb 11.5 gm/dL (12-16) L 01/07/18 21:44 Hct 34.0 % (41.0-60) L 01/07/18 21:44 MCV 85.3 fl (81-100) 01/07/18 21:44 MCH 29.0 pg (27.0-31.0) 01/07/18 21:44 MCHC Differential 34.0 pg (28.0-36.0) 01/07/18 21:44 RDW 13.1 % (11.5-20.0) 01/07/18 21:44 Plt Count 269 Th/cmm (150-400) D 01/07/18 21:44 MPV 6.0 fl 01/07/18 21:44 Neutrophils % 65.5 % (40.0-80.0) 01/07/18 21:44 Lymphocytes % 27.0 % (20.0-50.0) 01/07/18 21:44 Monocytes % 5.3 % (2.0-10.0) 01/07/18 21:44 Eosinophils % 1.3 % (0.0-5.0) 01/07/18 21:44 Basophils % 0.9 % (0.0-2.0) 01/07/18 21:44 Sodium 138 mEq/L (136-145) 01/07/18 21:44 Potassium 4.1 mEq/L (3.5-5.1) 01/07/18 21:44 Chloride 104 mEq/L (98-107) 01/07/18 21:44 Carbon Dioxide 21.7 mEq/L (21.0-31.0) 01/07/18 21:44 Anion Gap 16.4 (7.0-16.0) H 01/07/18 21:44 BUN 32 mg/dL (7-25) H 01/07/18 21:44 Creatinine 1.6 mg/dL (0.6-1.2) H 01/07/18 21:44 Est GFR ( Amer) TNP 01/07/18 21:44 Est GFR (Non-Af Amer) TNP 01/07/18 21:44 BUN/Creatinine Ratio 20.0 01/07/18 21:44 Glucose 165 mg/dL (70-105) H 01/07/18 21:44 POC Glucose 105 MG/DL (70 - 105) 01/11/18 05:45 Calcium 9.7 mg/dL (8.6-10.3) 01/07/18 21:44 Total Bilirubin 0.6 mg/dL (0.3-1.0) 01/07/18 21:44 AST 27 U/L (13-39) 01/07/18 21:44 ALT 27 U/L (7-52) 01/07/18 21:44 Alkaline Phosphatase 78 U/L (34-104) 01/07/18 21:44 Total Protein 7.2 gm/dL (6.0-8.3) 01/07/18 21:44 Albumin 4.7 gm/dL (3.7-5.3) 01/07/18 21:44 Globulin 2.5 gm/dL 01/07/18 21:44 Albumin/Globulin Ratio 1.9 (1.0-1.8) H 01/07/18 21:44 TSH 3.36 uIU/ml (0.34-5.60) 01/07/18 21:44 Urine Source RANDOM 01/08/18 00:30 Urine Color YELLOW 01/08/18 00:30 Urine Clarity CLEAR (CLEAR) 01/08/18 00:30 Urine pH 6.0 (4.6 - 8.0) 01/08/18 00:30 Ur Specific [place] 1.010 (1.005-1.030) 01/08/18 00:30 Urine Protein NEGATIVE mg/dL (NEGATIVE) 01/08/18 00:30 Urine Glucose (UA) NEGATIVE mg/dL (NEGATIVE) 01/08/18 00:30 Urine Ketones NEGATIVE mg/dL (NEGATIVE) 01/08/18 00:30 Urine Blood NEGATIVE (NEGATIVE) 01/08/18 00:30 Urine Nitrate NEGATIVE (NEGATIVE) 01/08/18 00:30 Urine Bilirubin NEGATIVE (NEGATIVE) 01/08/18 00:30 Urine Urobilinogen 0.2 E.U./dL (0.2 - 1.0) 01/08/18 00:30 Ur Leukocyte Esterase NEGATIVE (NEGATIVE) 01/08/18 00:30 Urine RBC 0-2 /hpf (0-5) 01/08/18 00:30 Urine WBC 0-2 /hpf (0-5) 01/08/18 00:30 Ur Epithelial Cells FEW /lpf (FEW) 01/08/18 00:30 Urine Bacteria FEW /hpf (NONE SEEN) 01/08/18 00:30 - Radiology Results Results: CXR: no focal consolidation ED Assessment - Assessment General Assessment: Schizophrenia Psychosis DM II Normocytic anemia Dehydration Assessment/Comments:: CBC, CMP, UA CXR, EKG NS 1L IV bolus Patient was cleared for geropsych unit admission. However, no geropsych bed would be available and the patient would be sent back to SNF. ED Septic Shock - . Is Septic Shock (SBP<90, OR Lactate>4 mmol\L) present?: No - <6hrs of presentation: Vital Signs: Vital Signs - 8 hr 01/07/18 20:50 Temp 97.5 F HR 76 RR 20 BP 128/68 O2 Sat % 100 ED Reassessment (Disposition) - Reassessment Reassessment Condition:: Improved - Patient Disposition Discharge/Transfer:: Long-Term Care - SNF ED Discharge Plan - Patient Disposition Admit/Discharge/Transfer: Discharge/Transfered to SNF Instructions: Dehydration, Adult, [id number] Additional Instructions: MAKE A FOLLOW UP WITH PRIMARY MEDICAL DOCTOR, SAFETY PRECAUTION FOR PATIENT, GO BACK TO EMERGENCY ROOM IF SYMPTOMS WORSEN.
[2018-01-07 21:51] LABS: % BASOPHILS 0.9 % (0.0-2.0); % EOSINOPHILS 1.3 % (0.0-5.0); % MONOCYTES 5.3 % (2.0-10.0); % NEUTROPHILS 65.5 % (40.0-80.0); BASOPHILE ABSOLUTE 0.1 Th/cumm (0-0.2); EOSINOPHILE ABSOLUTE 0.1 Th/cmm (0.1-0.4); HEMOGLOBIN 11.5 gm/dL (12-16); LYMPHOCYTE ABSOLUTE 1.6 Th/cmm (1.5-3.0); MEAN CELL VOLUME 85.3 fl (81-100); MONOCYTE ABSOLUTE 0.3 Th/cmm (0.3-1.0); NEUTROPHILE ABSOLUTE 3.9 Th/cmm (1.8-8.0); RED BLOOD COUNT 3.98 Mil/cmm (3.80-5.20); RED CELL DISTRIBUTION WIDTH 13.1 % (11.5-20.0)
[2018-01-07 21:58] LABS: PLATELET COUNT 269 Th/cmm (150-400)
[2018-01-07 22:09] LABS: ALB/GLOB RATIO 1.9 (1.0-1.8); ALBUMIN 4.7 gm/dL (3.7-5.3); ALKALINE PHOSPHATASE 78 U/L (34-104); ANION GAP 16.4 (7.0-16.0); BILIRUBIN,TOTAL 0.6 mg/dL (0.3-1.0); BUN - UREA NITROGEN 32 mg/dL (7-25); CALCIUM SERUM 9.7 mg/dL (8.6-10.3); CARBON DIOXIDE 21.7 mEq/L (21.0-31.0); CHLORIDE 104 mEq/L (98-107); CREATININE - SERUM 1.6 mg/dL (0.6-1.2); GLUCOSE 165 mg/dL (70-105); POTASSIUM SERUM 4.1 mEq/L (3.5-5.1); SGOT 27 U/L (13-39); SGPT/ALT 27 U/L (7-52); SODIUM SERUM 138 mEq/L (136-145); TOTAL PROTEIN,SERUM 7.2 gm/dL (6.0-8.3)
[2018-01-08 00:46] LABS: URINE MICROSCOPIC INDICATED? YES; URINE SOURCE RANDOM
[2018-01-08 00:49] LABS: URINE BILIRUBIN NEGATIVE (NEGATIVE); URINE BLOOD NEGATIVE (NEGATIVE); URINE GLUCOSE (UA) NEGATIVE (NEGATIVE); URINE KETONE NEGATIVE (NEGATIVE); URINE LEUKOCYTE ESTERASE NEGATIVE (NEGATIVE); URINE NITRATE NEGATIVE (NEGATIVE); URINE PROTEIN NEGATIVE (NEGATIVE); URINE UROBILINOGEN 0.2 E.U./dL (0.2 - 1.0)
[2018-01-08 00:54] LABS: URINE CLARITY CLEAR (CLEAR); URINE COLOR YELLOW
[2018-01-08 00:56] LABS: URINE BACTERIA FEW /hpf (NONE SEEN); URINE EPITHELIAL CELLS FEW /lpf (FEW); URINE RBC 0-2 /hpf (0-5); URINE WBC 0-2 /hpf (0-5)
[2018-01-08] MEDS ORDERED: Sodium Chloride 0.9% 1,000 ML IV ONE (01:38)
--- NOTE | 2018-01-08 07:57 | Diagnostic Imaging Report ---
Portable chest x-ray Time: 2148 hours History: Shortness of breath Allowing for portable technique the heart size is normal. No focal pulmonary parenchymal processes. No hilar or mediastinal abnormalities. Impression: No acute abnormalities.
== END 2018-01-08 05:27 ==
LOC: ER 20:46
DX: R45.1 Restlessness and agitation (principal)
CPT/HCPCS: 36415-UA; 71045-TC; 80053-TC; 81001-TC; 82948-90; 84443-TC; 85025-TC; 93005; J7030

== ENCOUNTER 2018-01-08 14:15 | Inpatient (IN) | payer MEDICARE, MEDICAID ==
[2018-01-08 14:46] VITALS: BP 124/59
[2018-01-08] MEDS ORDERED: Albuterol Nebulizer 2.5mg/3mL HHN PRN (19:34)
[2018-01-08] MEDS ORDERED: Hydrocodone/APAP 5mg/325mg Tab PO PRN (19:40)
[2018-01-09] MEDS ORDERED: Non-Formulary Item 1 EA (Apixaban [Eliquis] 5 MG) PO SCH (09:00)
[2018-01-09] MEDS: Multivitamin Tab PO SCH (09:20)
--- NOTE | 2018-01-09 11:08 | History & Physical ---
ADMIT DATE: 01/09/2018 PATIENT'S IDENTIFICATION: A 77-year-old female. REQUESTING PHYSICIAN: Ella Ayers M.D., M.P.H. CHIEF COMPLAINT: "I don't feel good." HISTORY OF PRESENT ILLNESS: A 77-year-old female who resides at [facility], has significant medical problems including diabetes, hypertension, DJD and dementia, noticed by staff that the patient was very aggressive and hitting the staff. The patient was sent to Geropsych Unit where the patient was evaluated, now being admitted to the hospital for further treatment. Due to her underlying illness, I am unable to get meaningful history. PAST MEDICAL HISTORY: The patient's past medical history remarkable for: 1. Diabetes. 2. Hypertension. 3. Dementia. 4. Degenerative joint disease. 5. Psychotic disorder. 6. Atrial fibrillation. MEDICATIONS AT RETIREMENT: The patient is taking multiple medications, which include Norvasc, Pacerone, Pepcid, Risperdal, Tylenol, [place], albuterol inhalation therapy as needed, multivitamin, Colace, sliding scale insulin. ALLERGIES: The patient is not allergic to any medications. SOCIAL HISTORY: [facility] a [facility] No smoking cigarette, alcohol, or drug use. FAMILY MEDICAL HISTORY: Unavailable. REVIEW OF SYSTEMS: Unable to get meaningful history from the patient, but as far as I get it from the patient. The patient denies any symptoms of chest pain, shortness of breath, palpitation, dizziness, nausea, vomiting, diarrhea, dysuria, hematuria, hematochezia, melena. No history of any seizure or syncopal episode. PHYSICAL EXAMINATION: GENERAL: The patient is alert, awake, lying in the bed without any acute distress. VITAL SIGNS: Temperature 98.6, pulse is 84, respiratory rate 16, blood pressure is 132/70. HEENT: Normocephalic, atraumatic. Extraocular muscles are intact. Tongue was pink and coated. No facial asymmetry. No oral exudate. NECK: Supple. No JVD. No hepatojugular reflex. No lymphadenopathy, thyromegaly or carotid bruit. HEART: Both heart sounds are irregularly irregular. CHEST: Lung equal in expansion, no expiratory wheezing. ABDOMEN: Soft. No guarding, rigidity. Bowel sounds present. No palpable mass. EXTREMITIES: No edema. Diffuse osteoarthritic changes noted. NEUROLOGIC: Alert, follows commands. Decreased power for the upper and lower extremity. Unable to assess mini mental status. AVAILABLE DIAGNOSTIC DATA: Unavailable for my review. CLINICAL IMPRESSION: 1. Psychotic disorder exacerbation. 2. Alzheimer dementia. 3. Diabetes. 4. Hypertension. 5. Degenerative joint disease. 6. Atrial fibrillation. 7. Decline in self care and mobility. 8. Fall risk. PLAN: 1. The patient's psychotic evaluation and management deferred to psychiatrist. 2. Sliding scale insulin. 3. Glucoscan a.c. and at bedtime. 4. Antihypertensive medicine. 5. Continue amiodarone. 6. Fall precautions. 7. Nutritional support. 8. General nursing care. 9. Admission labs. 10. Once admission labs are available, we will give further recommendation. 11. Care plan reviewed and discussed with staff. 12. We will continue to follow this patient during the stay in the hospital. 13. I sincerely thank you, Dr. Ayers for giving me the opportunity to participate in patient of yours. JOB# [id number]
[2018-01-09] MEDS: INSULIN ASPART SLIDING SCALE 100 UNITS/ML UNIT SUBQ SCH ×3 (11:23→21:41)
[2018-01-09] MEDS ORDERED: Non-Formulary Item 1 EA (Insulin Lispro [Humalog] 1 UNIT) SUBQ SCH (11:30)
--- NOTE | 2018-01-10 02:25 | Psychosocial Evaluation ---
DATE OF SERVICE: 01/08/2018 PSYCHIATRIC INITIAL EVALUATION AND MENTAL STATUS EXAM PATIENT'S AGE: 77. SEX: Female. PHYSICIAN: Ella Ayers MD, MPH CHIEF COMPLAINT: Aggressive behavior and agitation. HISTORY OF PRESENT ILLNESS: The patient is a 77-year-old female who has been under my care in treatment in [facility]. The patient has been agitated and in irritable mood and started hitting peers and the staff and throwing objects for them in the facility. She was out of control and extremely paranoid and agitated and staff was not able to handle her and she was brought into the hospital and admitted for evaluation and adjusting medications. The patient is still extremely irritable and agitated. The patient also is suspicious and is paranoid. She also is still having episodes of anger and is difficult to follow directions. She also mumbles. Also, personal hygiene is poor. She also has been having difficulty sleeping at night and has been extremely paranoid. PAST PSYCHIATRIC HISTORY: Multiple psychiatric hospitalizations and treatment for schizophrenic disorder. PAST MEDICAL HISTORY: Hypercholesterolemia and hypertension. SOCIAL HISTORY: The patient lives in [facility]. No known alcohol and drug use. The patient is single, never and has no children. ALLERGIES: No known allergies. MENTAL STATUS EXAMINATION: The patient appears older than her stated age. Anxious. Paranoid and suspicious. Poor hygiene. Thought processes are circumstantial and tangential with flight of ideas. The patient denies any auditory or visual hallucinations but extremely delusional. The patient denies any thoughts of suicide or homicide. The patient is alert and oriented to time, place, person, and situation. Intact immediate, recent and remote memories. Poor insight and poor judgment. She seems to be of average intelligence based on her verbal ability. Poor attention and concentration. ASSESSMENT: PRIMARY DIAGNOSIS: Chronic paranoid schizophrenia with acute exacerbation. MEDICAL DIAGNOSIS: Hypercholesterolemia. TREATMENT PLAN: We will monitor the patient's condition and behavior closely. We will start individual as well as milieu psychotherapy. We will adjust psychotropic medications and at this time we will continue Risperdal. ESTIMATED LENGTH OF STAY: 5-7 days. THE PATIENT'S STRENGTHS AND WEAKNESSES: The patient's strength is not clear at this time. Weaknesses are ineffective coping and her paranoia. AFTER DISCHARGE PLAN: The patient will return to live in [facility] with plans for outpatient treatment and followup. CRITERIA FOR DISCHARGE: The patient will not be psychotic and will stabilize psychotropic medications and will establish outpatient treatment plans. [facility]# [id number]
[2018-01-10] MEDS: INSULIN ASPART SLIDING SCALE 100 UNITS/ML UNIT SUBQ SCH ×4 (06:50→20:31)
[2018-01-10] MEDS: OLANZapine 5 mg Oral Disintegrating Tab PO SCH ×2 (08:33→16:13)
[2018-01-10] MEDS: Multivitamin Tab PO SCH (08:33)
--- NOTE | 2018-01-10 19:43 | Progress Notes ---
DATE: SUBJECTIVE: Chart reviewed and the patient interviewed. Also discussed the patient's condition with the staff and reviewed records and labs. The patient is still extremely paranoid and extremely agitated. The patient also is aggressive with the staff and is still restless and resisting care. She also is verbally abusive to staff and she is still resisting them when they try to help her with her ADLs. She also refusing to eat or drink. Also, she refused Accu-Chek. The patient also refused to take Risperdal. Also, during interview, the patient is still disheveled and she is still suspicious and is still paranoid. Also, she is forgetful, has difficulty remembering. ASSESSMENT: The patient is still severely psychotic and she is still in irritable mood. TREATMENT PLAN: We will continue monitoring her behavior and her condition closely. Also, we will change Risperdal and we will start the Zyprexa. Also, we will increase Aricept to 10 mg everyday and we will continue to monitor her condition and her medications closely. [facility]# [id number]
[2018-01-11] MEDS: INSULIN ASPART SLIDING SCALE 100 UNITS/ML UNIT SUBQ SCH ×4 (06:33→20:49)
[2018-01-11] MEDS: OLANZapine 5 mg Oral Disintegrating Tab PO SCH ×2 (09:23→17:58)
[2018-01-11] MEDS: Multivitamin Tab PO SCH (09:26)
--- NOTE | 2018-01-11 12:48 | General Progress Note ---
Subjective - Review of Systems Subjective: Patient is seen and examined. Agitated and not giving information today. Objective - Results Recent Labs: Laboratory Last Values POC Glucose 74 MG/DL (70 - 105) 01/10/18 11:42 - Physical Exam Vitals and I&O: Vital Signs Temp 98.1 F 01/10/18 21:01 Pulse 70 01/11/18 09:22 Resp 12 01/11/18 08:43 BP 162/73 01/11/18 09:22 Pulse Ox 99 01/11/18 08:43 Intake & Output 01/10/18 01/11/18 01/11/18 18:59 06:59 18:59 Intake Total 900 120 Output Total 1 Balance 900 119 Intake: Oral 900 120 Output: Stool 1 Other: # Voids 4 1 # Bowel Movements 1 Active Medications: Current Medications Acetaminophen/Hydrocodone Bitart (Cotati 5mg/325mg) 1 tab PO Q6H PRN PRN Reason: Pain (Moderate) Stop: 03/09/18 19:39 Albuterol Sulfate (Albuterol 2.5mg/3ml Neb Ud) 2.5 mg HHN Q2HR PRN PRN Reason: Shortness of Breath Stop: 03/09/18 19:33 Amiodarone HCl (Cordarone) 100 mg PO DAILY [facility] Stop: 03/10/18 08:59 Last Admin: 01/11/18 09:21 Dose: 100 mg Amlodipine Besylate (Norvasc) 10 mg PO DAILY [facility] Stop: 03/10/18 08:59 Last Admin: 01/11/18 09:22 Dose: 10 mg Docusate Sodium (Colace) 100 mg PO BID LINA Stop: 03/10/18 08:59 Last Admin: 01/11/18 09:26 Dose: Not Given Donepezil HCl (Aricept) 10 mg PO DAILY [facility] Stop: 03/11/18 08:59 Last Admin: 01/11/18 09:26 Dose: Not Given Famotidine (Pepcid) 20 mg PO BID [facility] Stop: 03/10/18 08:59 Last Admin: 01/11/18 09:26 Dose: Not Given Insulin Aspart (Novolog Insulin Sliding Scale) 0 units SUBQ ACHS LINA PRN Reason: Protocol Stop: 03/10/18 11:29 Last Admin: 01/11/18 11:53 Dose: Not Given Multivitamins/Vitamin C (Theragran) 1 tab PO DAILY [facility] Stop: 03/10/18 08:59 Last Admin: 01/11/18 09:26 Dose: Not Given Olanzapine (Zyprexa Zydis) 5 mg PO BID [facility] PRN Reason: Protocol Stop: 03/11/18 08:59 Last Admin: 01/11/18 09:23 Dose: 5 mg Rivaroxaban (Xarelto) 15 mg PO DAILY [facility] Stop: 03/11/18 08:59 Last Admin: 01/11/18 09:26 Dose: Not Given General: Alert, No acute distress HEENT: Atraumatic, EOMI Neck: Supple, JVD Cardiovascular: Systolic murmurs, Other (Iregularly iregular.) Lungs: Clear to auscultation Abdomen: Bowel sounds, Soft Extremities: Other (No edema,cyanosis.) Neurological: Normal gait Skin: Significant lesion (Seborrhic skin lesion on face.) - Procedures Procedures: Procedures Procedure Code Date GROUP PSYCHOTHERAPY 33134 02/29/16 GROUP PSYCHOTHERAPY GZHZZZZ 02/29/16 OTHER GROUP THERAPY 94.44 03/25/15 Assessment/Plan - Assessment Assessment: Diabetes. Hypertension. Dementia. Chronic A fib. DJD. Fall risk. - Plan Plan: Monitor glucose and vitals. Diabetes management. Fall precautions. Psych meds and follow up. General nursing care. symptoms management. Continue current care. Follow marine consultant recommendations. discussed with staff. Nutritional Asmnt/Malnutr-PDOC - Dietary Evaluation Malnutrition Findings (Please click <Entered> for more info): Nutritional Asmnt/Malnutrition Start: 01/10/18 15: 12 Text: Status: Complete Freq: Document 01/10/18 15:12 LCHENG (Rec: 01/10/18 15:31 LCHENG [email or web address]) Nutritional Asmnt/Malnutrition Patient General Information Nutritional Screening High Risk Consult Diagnosis psychosis Pertinent Medical Hx/Surgical Hx Dm, HTN, dementia, DJD, psychosis, A fib Subjective Information Consult received for wounds. Pt seen lying in bed with lunch tray in front at time of visit, not eating, agressive and rude. Spoke with RN, RN reported pt expressing worms or poison in food, refusing to eat or drink. Per records, pt refused meals x 3 on 01/09 Current Diet [facility]/ [facility] Pertinent Medications colace, novolog, theragran (pt refused all medicaitons) Pertinent Labs 01/08 POC 172 2/8-9 POC 71-79 Nutritional Hx/Data Height 1.68 m Height (Calculated Centimeters) 167.6 Current Weight (lbs) 72.575 kg Weight (Calculated Kilograms) 72.6 Weight (Calculated Grams) 64774.8 [place] Body Weight 130 % [place] Body Weight 123 Body Mass Index (BMI) 25.8 Weight Status Overweight GI Symptoms GI Symptoms None Last BM none Difficult in: None Skin Integrity/Comment: pressure ulcer to buttocks Estimated Nutritional Goals BEE in Kcals: Using Current wt Calories/Kcals/Kg 23-27 Kcals Calculated 9140-6361 Protein: Using Current wt Protein g/k-1.2 Protein Calculated 73-88 Fluid: ml 1678-1970ml (1ml/kcal) Nutritional Problem 1. Problem Problem inadequate food/fluid intake Etiology mental status Signs/Symptoms: pt refusing any food or liquid 2. Problem Problem increased nutrition needs ( protein) Etiology increased metabolic demand for wound healing Signs/Symptoms: pressure ulcer to buttocks Malnutrition Alert Protein-Calorie Malnutrition N/A Is there a minimum of two criteria No selected? Query Text:Check all the applicable criteria. A minimum of two criteria are recommended for diagnosis of either severe or non-severe malnutrition. Intervention/Recommendation Comments 1. Continue with current diet as ordered. Try to give pt food in sealed containers like juice, milk 2. Monitor PO intake, wt, labs and skin integrity 3. F/U as high risk in 2-3 days, 01/12-01/13 Expected Outcomes/Goals Expected Outcomes/Goals 1. PO intake to meet at least 75% of nutritional needs. 2. Wt stability, skin to remain intact, labs to approach WNL.
--- NOTE | 2018-01-11 19:47 | Progress Notes ---
DATE: 01/11/2018 SUBJECTIVE: The patient is currently in the hospital, aggressive behaviors, living at [facility], agitated, irritable, unruly, hitting others, hitting staff, paranoid, out of control behaviors. On [id number], the patient is confused, rambling, looking around the room, internally preoccupied, still remains impulsive, unpredictable. She is allowing staff to change her without any incident, however. MEDICATIONS: Reviewed include dosages and frequencies. ASSESSMENT: The patient remains symptomatic, still unruly, impulsive, unpredictable, rambling behaviors, seemingly psychotic and irritable and restless. PLAN: We will continue to monitor given recent dose changes by Dr. Ayers, we will monitor at current dosages. JOB# [id number]
[2018-01-12] MEDS: INSULIN ASPART SLIDING SCALE 100 UNITS/ML UNIT SUBQ SCH ×4 (06:55→21:52)
--- NOTE | 2018-01-12 07:31 | Progress Notes ---
DATE: 01/12/2018 SUBJECTIVE: The patient is currently in the hospital, aggressive behaviors, living at [facility], still unruly, out of control behaviors, confused, rambling. She does seem somewhat calmer, but still internally preoccupied, making nonsensical statements, difficult to fully understand. 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 MEDICATIONS: Reviewed. ASSESSMENT: The patient remains symptomatic, some yelling episodes, seems quite disorganized, nonsensical. PLAN: We will continue to monitor given recent dose adjustments by Dr. Ayers. We will continue current doses of Aricept and Zyprexa and we will consider Namenda. JOB# [id number]
[2018-01-12] MEDS: Multivitamin Tab PO SCH (10:29)
[2018-01-12] MEDS: OLANZapine 5 mg Oral Disintegrating Tab PO SCH ×3 (10:29→18:27)
--- NOTE | 2018-01-12 15:35 | General Progress Note ---
Subjective - Review of Systems Subjective: Patient is seen and examined. No new events. Objective - Results Recent Labs: Laboratory Last Values POC Glucose 76 MG/DL (70 - 105) 01/12/18 12:15 - Physical Exam Vitals and I&O: Vital Signs Temp 97.8 F 01/12/18 06:39 Pulse 75 01/12/18 08:25 Resp 18 01/12/18 11:07 BP 143/68 01/12/18 06:39 Pulse Ox 97 01/12/18 08:25 Intake & Output 01/11/18 01/12/18 01/12/18 18:59 06:59 18:59 Intake Total 0 Balance 0 Intake: Oral 0 Other: # Voids 0 3 0 # Bowel Movements 0 0 Active Medications: Current Medications Acetaminophen/Hydrocodone Bitart ([place] 5mg/325mg) 1 tab PO Q6H PRN PRN Reason: Pain (Moderate) Stop: 03/09/18 19:39 Albuterol Sulfate (Albuterol 2.5mg/3ml Neb Ud) 2.5 mg HHN Q2HR PRN PRN Reason: Shortness of Breath Stop: 03/09/18 19:33 Amiodarone HCl (Cordarone) 100 mg PO DAILY [facility] Stop: 03/10/18 08:59 Last Admin: 01/12/18 10:29 Dose: Not Given Amlodipine Besylate (Norvasc) 10 mg PO DAILY [facility] Stop: 03/10/18 08:59 Last Admin: 01/12/18 10:28 Dose: Not Given Docusate Sodium (Colace) 100 mg PO BID [facility] Stop: 03/10/18 08:59 Last Admin: 01/12/18 10:28 Dose: Not Given Donepezil HCl (Aricept) 10 mg PO DAILY [facility] Stop: 03/11/18 08:59 Last Admin: 01/12/18 10:29 Dose: Not Given Famotidine (Pepcid) 20 mg PO BID [facility] Stop: 03/10/18 08:59 Last Admin: 01/12/18 10:29 Dose: Not Given Insulin Aspart (Novolog Insulin Sliding Scale) 0 units SUBQ ACHS LINA PRN Reason: Protocol Stop: 03/10/18 11:29 Last Admin: 01/12/18 06:55 Dose: Not Given Multivitamins/Vitamin C (Theragran) 1 tab PO DAILY [facility] Stop: 03/10/18 08:59 Last Admin: 01/12/18 10:29 Dose: Not Given Olanzapine (Zyprexa Zydis) 5 mg PO BID [facility] PRN Reason: Protocol Stop: 03/11/18 08:59 Last Admin: 01/12/18 10:29 Dose: Not Given Rivaroxaban (Xarelto) 15 mg PO DAILY [facility] Stop: 03/11/18 08:59 Last Admin: 01/12/18 10:29 Dose: Not Given General: Alert, No acute distress HEENT: Atraumatic, EOMI Neck: Supple, JVD Cardiovascular: Systolic murmurs, Other (Iregularly iregular.) Lungs: Clear to auscultation Abdomen: Bowel sounds, Soft Extremities: Other (No edema,cyanosis.) Neurological: Normal gait Skin: Significant lesion (Seborrhic skin lesion on face.) - Procedures Procedures: Procedures Procedure Code Date GROUP PSYCHOTHERAPY 27824 02/29/16 GROUP PSYCHOTHERAPY [id number] 02/29/16 OTHER GROUP THERAPY 94.44 03/25/15 Assessment/Plan - Assessment Assessment: Diabetes. Hypertension. Dementia. Chronic A fib. DJD. Fall risk. - Plan Plan: Monitor glucose and vitals. Diabetes management. Fall precautions. Xarelto for anti coagulation. Rate control. Medication management. Psych meds and follow up. General nursing care. symptoms management. Continue current care. Follow business system consultant recommendations. discussed with staff. Nutritional Asmnt/Malnutr-PDOC - Dietary Evaluation Malnutrition Findings (Please click <Entered> for more info): Nutritional Asmnt/Malnutrition Start: 01/10/18 15: 12 Text: Status: Complete Freq: Document 01/10/18 15:12 LCHENG (Rec: 01/10/18 15:31 LCHENG [email or web address]) Nutritional Asmnt/Malnutrition Patient General Information Nutritional Screening High Risk Consult Diagnosis psychosis Pertinent Medical Hx/Surgical Hx Dm, HTN, dementia, DJD, psychosis, A fib Subjective Information Consult received for wounds. Pt seen lying in bed with lunch tray in front at time of visit, not eating, agressive and rude. Spoke with RN, RN reported pt expressing worms or poison in food, refusing to eat or drink. Per records, pt refused meals x 3 on 2/8 Current Diet Order/ Nutrition Support CCHO-60gm Pertinent Medications colace, novolog, theragran (pt refused all medicaitons) Pertinent Labs / POC 172 2/8-9 POC 71-79 Nutritional Hx/Data Height 1.68 m Height (Calculated Centimeters) 167.6 Current Weight (lbs) 72.575 kg Weight (Calculated Kilograms) 72.6 Weight (Calculated Grams) 95908.8 [place] Body Weight 130 % [place] Body Weight 123 Body Mass Index (BMI) 25.8 Weight Status Overweight GI Symptoms GI Symptoms None Last BM none Difficult in: None Skin Integrity/Comment: pressure ulcer to buttocks Estimated Nutritional Goals BEE in Kcals: Using Current wt Calories/Kcals/Kg 23-27 Kcals Calculated 5636-5852 Protein: Using Current wt Protein g/k-1.2 Protein Calculated 73-88 Fluid: ml 1678-1970ml (1ml/kcal) Nutritional Problem 1. Problem Problem inadequate food/fluid intake Etiology mental status Signs/Symptoms: pt refusing any food or liquid 2. Problem Problem increased nutrition needs ( protein) Etiology increased metabolic demand for wound healing Signs/Symptoms: pressure ulcer to buttocks Malnutrition Alert Protein-Calorie Malnutrition N/A Is there a minimum of two criteria No selected? Query Text:Check all the applicable criteria. A minimum of two criteria are recommended for diagnosis of either severe or non-severe malnutrition. Intervention/Recommendation Comments 1. Continue with current diet as ordered. Try to give pt food in sealed containers like juice, milk 2. Monitor PO intake, wt, labs and skin integrity 3. F/U as high risk in 2-3 days, 01/12-01/13 Expected Outcomes/Goals Expected Outcomes/Goals 1. PO intake to meet at least 75% of nutritional needs. 2. Wt stability, skin to remain intact, labs to approach WNL.
[2018-01-13] MEDS: INSULIN ASPART SLIDING SCALE 100 UNITS/ML UNIT SUBQ SCH ×3 (07:09→22:00)
[2018-01-13] MEDS: OLANZapine 5 mg Oral Disintegrating Tab PO SCH ×2 (09:54→17:57)
[2018-01-13] MEDS: Multivitamin Tab PO SCH (09:54)
[2018-01-14] MEDS: INSULIN ASPART SLIDING SCALE 100 UNITS/ML UNIT SUBQ SCH ×4 (06:39→20:28)
--- NOTE | 2018-01-14 07:35 | Progress Notes ---
DATE: 01/13/2018 SUBJECTIVE: The patient is currently in the hospital, resides at [facility], agitated, irritable mood, hitting peers. On [id number], the patient remains unruly at times, still gets loud, agitated, highly impulsive, unpredictable. She is calm at this time, but at times, still yells, still mumbles to self, internally preoccupied. MEDICATIONS: Reviewed. ASSESSMENT: The patient remains symptomatic, still unruly, still with evidence of psychosis. PLAN: We will continue to monitor. We will continue to adjust and titrate medications. Given ongoing symptoms, not safe for discharge at this time. We will also consider the addition of Namenda. [facility]# [id number]
[2018-01-14] MEDS: Multivitamin Tab PO SCH (09:26)
[2018-01-14] MEDS: OLANZapine 5 mg Oral Disintegrating Tab PO SCH ×2 (09:26→18:37)
--- NOTE | 2018-01-15 05:49 | Progress Notes ---
DATE: 01/14/2018 SUBJECTIVE: The patient is currently in the hospital residing at [facility], still agitated, yelling at times, somewhat impulsive, loud, still unruly but seems to be improving, calmer, more cooperative, no agitation. She is more amenable to treatment. MEDICATIONS: Reviewed. ASSESSMENT: The patient remains symptomatic, internally preoccupied, continued concerns about her psychotic symptoms. PLAN: We will continue to monitor, continue antipsychotic medications and continue Aricept, continue at current dosages given her recent dose adjustments and changes. JOB# [id number]
[2018-01-15] MEDS: INSULIN ASPART SLIDING SCALE 100 UNITS/ML UNIT SUBQ SCH ×4 (08:22→21:23)
[2018-01-15] MEDS: Multivitamin Tab PO SCH (08:29)
[2018-01-15] MEDS: OLANZapine 5 mg Oral Disintegrating Tab PO SCH ×2 (08:32→16:20)
--- NOTE | 2018-01-16 05:31 | Progress Notes ---
DATE: 01/15/2018 SUBJECTIVE: Chart reviewed and the patient interviewed. Also discussed the patient's condition with the staff and reviewed records and labs. The patient continued to be paranoid and she is still delusional and she is still easily agitated. The patient also is restless and she is still actively hallucinating and talking to herself. She also is still fearful. Also, personal hygiene is still poor. Also, during interview, the patient is talking to herself and she is suspicious and she is paranoid. Otherwise, the patient is compliant with taking her medications and the patient denies any side effect of medications. ASSESSMENT: The patient is still psychotic. TREATMENT PLAN: We will continue monitoring her behavior and her condition closely. Also, we will increase Zyprexa to 7.5 mg twice a day. Also, continue to work on behavior modification and her paranoia as well as on her personal hygiene. JOB# [id number]
[2018-01-16] MEDS: INSULIN ASPART SLIDING SCALE 100 UNITS/ML UNIT SUBQ SCH ×4 (06:39→20:03)
[2018-01-16] MEDS: OLANZapine 5 mg Oral Disintegrating Tab PO SCH ×2 (08:06→16:26)
[2018-01-16] MEDS: Multivitamin Tab PO SCH (08:06)
[2018-01-17] MEDS: INSULIN ASPART SLIDING SCALE 100 UNITS/ML UNIT SUBQ SCH ×4 (06:55→20:39)
[2018-01-17] MEDS: Multivitamin Tab PO SCH (08:05)
[2018-01-17] MEDS: OLANZapine 5 mg Oral Disintegrating Tab PO SCH ×2 (08:05→17:09)
--- NOTE | 2018-01-17 15:04 | Progress Notes ---
DATE: SUBJECTIVE: The patient seen and examined. The patient is lying in the bed. The patient gets periods of agitation. The patient currently denies any chest pain, shortness of breath, palpitation, dizziness, nausea, vomiting. PHYSICAL EXAMINATION: On exam, VITAL SIGNS: Temperature 98, pulse is 74, respiratory rate 18, blood pressure 144/70. HEENT: No facial asymmetry. Poor dentition noted. NECK: Supple. No JVD. HEART: Regular. CHEST AND LUNG: Equal in expansion. No wheezing. No crackles. ABDOMEN: Soft. No guarding or rigidity. Bowel sounds present. EXTREMITIES: No edema. CLINICAL IMPRESSION: 1. Diabetes. 2. Hypertension. 3. Alzheimer's dementia. 4. Chronic atrial fibrillation. 5. Degenerative joint disease. 6. Fall risk. PLAN: 1. Glucose monitoring. 2. Sliding scale insulin. 3. Aricept. 4. Amlodipine. 5. Amiodarone. 6. Xarelto. 7. Psychotic evaluation and management, deferred to psychiatrist. 8. Symptoms management. 9. Fall precaution. 10. General nursing care. 11. We will continue to follow this patient in the hospital. JOB# [id number]
--- NOTE | 2018-01-18 02:26 | Progress Notes ---
DATE: SUBJECTIVE: Chart reviewed and the patient interviewed. Also discussed the patient's condition with the staff and reviewed records and labs. The patient is still extremely agitated and she is still in irritable mood. The patient also still has difficulty interacting and threatening staff and threatening others. She also is still paranoid and suspicious. She also tries to hit staff, especially when they try to help her with her ADLs. The patient on the other hand is eating slightly better. ASSESSMENT: The patient is still aggressive and psychotic. TREATMENT PLAN: Discussed with the patient importance of taking her medications. Hopefully, she will take her medications. Also, we will continue to work on her irritability and her psychosis and we will continue to follow up. [facility]# [id number]
[2018-01-18] MEDS: INSULIN ASPART SLIDING SCALE 100 UNITS/ML UNIT SUBQ SCH ×4 (06:42→20:45)
[2018-01-18] MEDS: Multivitamin Tab PO SCH (09:26)
[2018-01-18] MEDS: OLANZapine 5 mg Oral Disintegrating Tab PO SCH ×2 (09:27→17:12)
--- NOTE | 2018-01-19 08:29 | Progress Notes ---
DATE: SUBJECTIVE: The patient was seen, chart reviewed, and discussed with staff. The patient continues to be very irritable, labile and affect and very agitated, continues to threaten staff and peers, is extremely paranoid. She has, however, been compliant with her medications. PLAN: The patient continues to be extremely irritable and unpredictable, so that she will require inpatient care center treatment. We will increase the patient's Zyprexa 10 mg p.o. b.i.d. [facility]# [id number]
[2018-01-19] MEDS: Multivitamin Tab PO SCH (09:40)
[2018-01-19] MEDS: INSULIN ASPART SLIDING SCALE 100 UNITS/ML UNIT SUBQ SCH ×4 (09:44→21:07)
--- NOTE | 2018-01-19 22:12 | Progress Notes ---
DATE: SUBJECTIVE: The patient seen, chart reviewed, and discussed with staff. The patient continues to be very unpredictable, labile, continues to threaten staff and peers. The patient continues to feel that other people are trying to hurt her. She has, however, been compliant with her medications. PLAN: The patient continues to be irritable and psychotic. It was felt that she will require continued inpatient care for stabilization and treatment. We will monitor patient on a daily basis for response to medications and titrate meds as needed. [facility]# [id number]
[2018-01-20] MEDS: INSULIN ASPART SLIDING SCALE 100 UNITS/ML UNIT SUBQ SCH ×4 (06:48→21:44)
[2018-01-20] MEDS: Multivitamin Tab PO SCH (09:12)
[2018-01-20] MEDS: OLANZapine 5 mg Oral Disintegrating Tab PO SCH ×2 (09:12→17:51)
--- NOTE | 2018-01-20 10:26 | Progress Notes ---
DATE: 01/20/2018 SUBJECTIVE: The patient seen and examined. The patient is lying in the bed. The patient gets periods of agitation as well. Other lab and MAR reviewed. PHYSICAL EXAMINATION: On exam, VITAL SIGNS: Temperature 98, pulse is 64, respiratory rate 18, blood pressure 144/80. HEENT: No facial asymmetry. NECK: Supple. No JVD. HEART: Both heart sounds are irregularly irregular. Grade 3/6 systolic murmur noted. CHEST: Lung equal in expansion, no expiratory wheezing. ABDOMEN: Soft. No guarding. No rigidity. Bowel sounds are present. No palpable mass. EXTREMITIES: No edema. Diffuse osteoarthritic changes noted. NEUROLOGIC: Alert, awake, follows command. CLINICAL IMPRESSION: 1. Diabetes. 2. Hypertension. 3. Alzheimer's dementia. 4. Psychotic disorder. 5. Chronic atrial fibrillation. 6. Degenerative joint disease. 7. Fall risk. PLAN: 1. Diabetes management. 2. Antihypertensive medicine. 3. Psych medication. 4. Dementia medication. 5. Rate control. 6. Amiodarone. 7. Fall precaution. 8. Xarelto. 9. General nursing care. 10. Fall precaution. 11. Care plan reviewed and discussed with staff. JOB# [id number]
[2018-01-21] MEDS: INSULIN ASPART SLIDING SCALE 100 UNITS/ML UNIT SUBQ SCH ×3 (06:34→22:08)
--- NOTE | 2018-01-21 06:50 | Progress Notes ---
DATE: SUBJECTIVE: Chart reviewed and the patient interviewed. I also discussed the patient's condition with the staff and reviewed record and labs. The patient is still confused. The patient also is still in angry and irritable mood and she curses the staff. The patient also is still paranoid and easily agitated. Also, personal hygiene is still poor. The patient also is selective in choosing medications and still noncompliant with taking her medications. Otherwise, no side effects of medications. ASSESSMENT: The patient is still irritable and psychotic. TREATMENT PLAN: We will give the patient Haldol Decanoate today for better compliance. I discussed that with the patient and the patient agreed to take it. She did take Haldol Decanoate before and she was doing well on it. At the same time, continue monitoring her behavior closely and we will continue to work on her psychosis and agitation. JOB# [id number]
--- NOTE | 2018-01-21 07:29 | Progress Notes ---
DATE: 01/21/2018 SUBJECTIVE: Chart reviewed and the patient interviewed. Also, discussed the patient's condition with the staff and reviewed records and labs. The patient seems to be , but she is still having episodes of yelling and screaming constantly. She also still gets aggressive with the staff during helping her with her ADLs. The patient also has been forgetful and has been easily agitated and irritable. She also has been suspicious and has been paranoid. The patient still needs lots of directions. Otherwise, she is more compliant with taking her medications yesterday and today. ASSESSMENT: The patient is still psychotic and agitated. TREATMENT PLAN: We will continue monitoring her behavior and her condition closely. Also, yesterday, the patient did take Haldol Decanoate injection for better compliance and she did take it before and agreeable to take it. Also, we will increase Namenda to 5 mg twice a day and will continue to follow up her behavior and her condition closely. [facility]# [id number]
[2018-01-21] MEDS: OLANZapine 5 mg Oral Disintegrating Tab PO SCH (18:51)
[2018-01-21] MEDS: Multivitamin Tab PO SCH (18:53)
[2018-01-22] MEDS: INSULIN ASPART SLIDING SCALE 100 UNITS/ML UNIT SUBQ SCH ×3 (06:59→21:28)
[2018-01-22] MEDS: Multivitamin Tab PO SCH (09:59)
[2018-01-22] MEDS: OLANZapine 5 mg Oral Disintegrating Tab PO SCH ×2 (10:00→18:06)
--- NOTE | 2018-01-22 20:18 | Progress Notes ---
DATE: 01/22/2018 SUBJECTIVE: Chart reviewed and the patient interviewed. Also discussed the patient's condition with the staff and . The patient is still agitated and confused. The patient also still has episodes of yelling and screaming, but seems to be less than before. She also still has difficulty following directions. The patient denies any hallucinations, but she is actively responding to stimuli and talking to herself. Also, personal hygiene is still poor. ASSESSMENT: The patient is still psychotic and still needs close monitoring. TREATMENT PLAN: We will continue monitoring her behavior and her condition and continue adjusting psychotropic medications and followup. [facility]# [id number]
[2018-01-23] MEDS: INSULIN ASPART SLIDING SCALE 100 UNITS/ML UNIT SUBQ SCH ×3 (06:32→21:10)
[2018-01-23] MEDS: OLANZapine 5 mg Oral Disintegrating Tab PO SCH ×2 (10:00→19:12)
[2018-01-23] MEDS: Multivitamin Tab PO SCH (10:01)
--- NOTE | 2018-01-23 22:13 | Progress Notes ---
DATE: 01/23/2018 SUBJECTIVE: Chart reviewed and the patient interviewed. Also discussed the patient's condition with the staff and reviewed records and labs. The patient is still in irritable mood and angry. The patient also is still at times confused and forgetful. The patient also needs lots of redirections. Otherwise, the patient is compliant with taking her medications with no side effect of medications. At times, the patient is uncooperative with the staff and yesterday, the patient refused to her blood drawn. ASSESSMENT: The patient is still psychotic and agitated. TREATMENT PLAN: Continue monitoring her behavior and her condition closely. Also, continue adjusting psychotropic medications and follow up closely. [facility]# [id number]
[2018-01-24] MEDS: INSULIN ASPART SLIDING SCALE 100 UNITS/ML UNIT SUBQ SCH ×2 (06:42→12:10)
--- NOTE | 2018-01-24 07:56 | Discharge Summary ---
DATE OF DISCHARGE: 01/24/2018 PATIENT'S AGE: 77. SEX: Female. PHYSICIAN: Ella Ayers M.D., M.P.H. FINAL DIAGNOSIS: PRIMARY DIAGNOSES: Chronic paranoid schizophrenia with acute exacerbation. REASON FOR HOSPITALIZATION: The patient was admitted to the hospital because of increased agitation and irritability and because of anger and irritability. HOSPITAL COURSE: The patient continued to be extremely irritable and agitated. The patient also was paranoid and suspicious. She also was yelling and screaming and resisting care and at times was refusing to take any psychotropic medications. The patient was given Aricept and also she was given Haldol injection every month to 25 mg per mL. She also is given Zyprexa Zydis 10 mg twice a day. Gradually, the patient's affect was brighter. The patient also was more compliant with taking her medications. The patient was not as agitated. She also was unable to follow directions easily. Physical exam of the patient showed no major medical problems. TREATMENT PLAN: The patient will return to [facility] and will be followed there. EXPECTED OUTCOME AFTER DISCHARGE: Fair if the patient continued to take her psychotropic medications. [facility]# [id number]
[2018-01-24] MEDS: OLANZapine 5 mg Oral Disintegrating Tab PO SCH (12:09)
[2018-01-24] MEDS: Multivitamin Tab PO SCH (12:10)
== END 2018-01-24 18:11 | DRG 885 ==
LOC: GERO 14:15
PROVIDERS: ADMIT Psychiatry & Neurology Psychiatry; ATTEND Psychiatry & Neurology Psychiatry
DX: F20.0 Paranoid schizophrenia (principal); F02.81 Dementia in other diseases classified elsewhere, unspecified severity, with behavioral disturbance; G30.9 Alzheimer's disease, unspecified; E11.9 Type 2 diabetes mellitus without complications; I48.91 Unspecified atrial fibrillation; E78.5 Hyperlipidemia, unspecified; I10 Essential (primary) hypertension; M19.90 Unspecified osteoarthritis, unspecified site; F29 Unspecified psychosis not due to a substance or known physiological condition; E78.00 Pure hypercholesterolemia, unspecified; Z91.81 History of falling; Z79.4 Long term (current) use of insulin
CPT/HCPCS: 36415-UA; 71045-TC; 80053-TC; 81001-TC; 82948-90; 84443-TC; 85025-TC; 93005; 94760; J1631; J1815; J7030; Z7610

== ENCOUNTER 2018-06-19 17:13 | Inpatient (IN) | payer MEDICARE, MEDICAID ==
--- NOTE | 2018-06-19 17:53 | ED Physician Chart ---
ED Chief Complaint/HPI - Patient Information Date Seen:: 06/19/18 Time Seen:: 17:30 Chief Complaint:: aggressive behavior History of Present Illness:: Patient's been exhibiting increased agitation and aggressive behavior at her custodial facility. Allergies:: Allergies Allergy/AdvReac Type Severity Reaction Status Date / Time No Known Allergies Allergy Verified 01/07/18 20:55 Historian:: Patient, EMS Review:: Transfer documents Reviewed ED Review of Systems - Review of Systems General/Constitutional: No fever, No chills, No weight loss, No weakness, No diaphoresis, No edema, No loss of appetite Skin: No skin lesions, No rash, No bruising Head: No headache, No light-headedness Eyes: No loss of vision, No pain, No diplopia ENT: No earache, No nasal drainage, No sore throat, No tinnitus Neck: No neck pain, No swelling, No thyromegaly, No stiffness, No mass noted Cardio Vascular: No chest pain, No palpitations, No PND, No orthopnea, No edema Pulmonary: No SOB, No cough, No sputum, No wheezing GI: No nausea, No vomiting, No diarrhea, No pain, No melena, No hematochezia, No constipation, No hematemesis G/U: No dysuria, No frequency, No hematuria Musculoskeletal: No bone or joint pain, No back pain, No muscle pain Endocrine: No polyuria, No polydipsia Psychiatric: Prior psych history Hematopoietic: No bruising, No lymphadenopathy Allergic/Immuno: No urticaria, No angioedema Neurological: No syncope, No focal symptoms, No weakness, No paresthesia, No headache, No seizure, No dizziness, No confusion, No vertigo ED Past Medical History - Past Medical History Past Medical History: HTN, DM, PUD/GERD, Arthritis, Dementia, Other (chronic atrial fibrillation; arthritis; and I schizophrenia) Family History: Other (unavailable) Social History: Non Smoker, Care Facility Surgical History: other (laparotomy) Psychiatricy History: Schizophrenia Medication: Reviewed Family Medical History - Family Member Mother History Unknown: Yes Ethnicity: Unknown Living Status: Unknown Hx Family Cancer: No Hx Family Coronary Artery Disease: No Hx Family Congestive Heart Failure: No Hx Family Hypertension: No Hx Family Stroke: No Hx Family Diabetes: No Hx Family Seizures: No Hx Family Dementia: No Hx Family AIDS: No Hx Family HIV: No Hx Family COPD: No Hx Family Hepatitis: No Hx Family Psychiatric Problems: No Hx Family Tuberculosis: No ED Physical Exam - Physical Examination General/Constitutional: Awake, Well-developed, well-nourished, Alert, No distress, Non-toxic appearing, Ambulatory Other Gen/Cons comments:: Patient is confused. She does not know the correct year. Head: Atraumatic Eyes: Lids, conjuctiva normal, PERRL, EOMI Skin: Nl inspection, No rash, No skin lesions, No ecchymosis, Well hydrated, No lymphadenopathy ENMT: External ears, nose nl, Nasal exam nl, Lips, teeth, gums nl Neck: Nontender, Full ROM w/o pain, No JVD, No nuchal rigidity, No bruit, No mass, No stridor Respiratory: Nl effort/Exclusion, Clear to Auscultation, No Wheeze/Rhonchi/Rales Cardio Vascular: RRR, No murmur, gallop, rubs, NL S1 S2 GI: No tenderness/rebounding/guarding, No organomegaly, No hernia, Normal BS's, Nondistended, No mass/bruits, No McBurney tenderness : No CVA tenderness Extremities: No tenderness or effusion, Full ROM, normal strength in all extremities, No edema, Normal digits & nails Neuro/Psych: Alert/oriented, DTR's symmetric, Normal sensory exam, Normal motor strength, Judgement/insight normal, Mood normal, Normal gait, No focal deficits Misc: Normal back, No paraspinal tenderness ED Labs/Radiology/EKG Results - Lab Results Comments:: Laboratory Results - last 24 hr 06/19/18 06/19/18 17:57 17:57 WBC 5.9 RBC 4.43 Hgb 12.3 Hct 36.4 L MCV 82.3 MCH 27.7 MCHC Differential 33.6 RDW 14.4 Plt Count 239 MPV 6.1 Neutrophils % 54.5 Lymphocytes % 33.2 Monocytes % 9.1 Eosinophils % 2.7 Basophils % 0.5 Sodium 138 Potassium 4.3 Chloride 107 Carbon Dioxide 21.7 Anion Gap 13.6 BUN 32 H Creatinine 1.7 H Est GFR ( Amer) TNP Est GFR (Non-Af Amer) TNP BUN/Creatinine Ratio 18.8 Glucose 128 H Calcium 9.3 Total Bilirubin 0.4 AST 13 ALT 10 Alkaline Phosphatase 67 Total Protein 6.9 Albumin 4.2 Globulin 2.7 Albumin/Globulin Ratio 1.6 Triglycerides 120 Cholesterol 185 LDL Cholesterol Direct 104 HDL Cholesterol 58 Salicylates < 25.0 L Acetaminophen < 10.0 L Ethyl Alcohol < 10 - EKG Interpretations Rate & Rhythm: sinus rhythm with a ventricular rate of 56 Pearson: normal ED Septic Shock - . Is Septic Shock (SBP<90, OR Lactate>4 mmol\L) present?: No ED Reassessment (Disposition) - Diagnosis Diagnosis:: Dementia with agitation - Patient Disposition Admitted to:: [facility] Admitting Medical Physician:: Guru Cardona Admitting Psych Physician:: Sharita Valente Condition at Disposition:: Stable, Unchanged
[2018-06-19 18:13] LABS: % BASOPHILS 0.5 % (0.0-2.0); % EOSINOPHILS 2.7 % (0.0-5.0); % LYMPHOCYTES 33.2 % (20.0-50.0); % MONOCYTES 9.1 % (2.0-10.0); % NEUTROPHILS 54.5 % (40.0-80.0); EOSINOPHILE ABSOLUTE 0.2 Th/cmm (0.1-0.4); HEMATOCRIT 36.4 % (41.0-60); HEMOGLOBIN 12.3 gm/dL (12-16); MEAN CELL VOLUME 82.3 fl (81-100); MEAN CORPUSCULAR HEMOGLOBIN 27.7 pg (27.0-31.0); MEAN CORPUSCULAR HGB CONC 33.6 pg (28.0-36.0); MEAN PLATELET VOLUME 6.1 fl; MONOCYTE ABSOLUTE 0.5 Th/cmm (0.3-1.0); NEUTROPHILE ABSOLUTE 3.2 Th/cmm (1.8-8.0); PLATELET COUNT 239 Th/cmm (150-400); RED BLOOD COUNT 4.43 Mil/cmm (3.80-5.20); RED CELL DISTRIBUTION WIDTH 14.4 % (11.5-20.0); WHITE BLOOD COUNT 5.9 Th/cmm (4.8-10.8)
[2018-06-19 18:30] LABS: ACETAMINOPHEN < 10.0 ug/mL (10.0-30.0); ALB/GLOB RATIO 1.6 (1.0-1.8); ALBUMIN 4.2 gm/dL (3.7-5.3); ALKALINE PHOSPHATASE 67 U/L (34-104); ANION GAP 13.6 (7.0-16.0); BILIRUBIN,TOTAL 0.4 mg/dL (0.3-1.0); BUN - UREA NITROGEN 32 mg/dL (7-25); CALCIUM SERUM 9.3 mg/dL (8.6-10.3); CARBON DIOXIDE 21.7 mEq/L (21.0-31.0); CHLORIDE 107 mEq/L (98-107); CHOLESTEROL 185 mg/dL (<200); CREATININE - SERUM 1.7 mg/dL (0.6-1.2); GLUCOSE 128 mg/dL (70-105); HDL -HIGH DENSITY LIPOPROTEIN 58 mg/dL (23-92); POTASSIUM SERUM 4.3 mEq/L (3.5-5.1); SALICYLATES (ASPIRIN) < 25.0 mg/L (30.0-100.0); SGOT 13 U/L (13-39); SGPT/ALT 10 U/L (7-52); SODIUM SERUM 138 mEq/L (136-145); TOTAL PROTEIN,SERUM 6.9 gm/dL (6.0-8.3); TRIGLYCERIDES 120 mg/dL (<150)
[2018-06-19 21:25] LABS: A1C % 6.6 % (4.0-6.0)
[2018-06-20 05:47] VITALS: BP 134/98
[2018-06-20] MEDS ORDERED: Magnesium Hydroxide (MOM) 30 mL UDC PO PRN (06:03)
[2018-06-20] MEDS ORDERED: Maalox 30 mL Cup PO PRN (06:03)
[2018-06-20] MEDS ORDERED: Non-Formulary Item 1 EA (Apixaban [Eliquis] 5 MG) PO SCH (09:00)
--- NOTE | 2018-06-20 09:20 | History and Physical ---
History of Present Illness - HPI Chief Complaint: Sent to emergency room for evaluation of increasing agitation. HPI: 77-year-old female resident of [facility] has complex medical problem as well as psychiatric problem brought into emergency room from [facility] after patient was having increasing agitation and aggressive behavior. After me or by emergency room MD patient is now admitted to geropsych unit for further treatment. I have been asked this patient's to manage medical problem. Vital Signs: Last Vital Signs Temp 98.8 F 06/20/18 06:44 Pulse 60 06/20/18 06:44 Resp 19 06/20/18 06:44 BP 140/71 06/20/18 06:44 Pulse Ox 99 06/20/18 06:44 Past Medical History Cardiovascular: Report: AFIB, CAD, HTN Pulmonary: Report: No Pertinent Hx TRADES HELPER: Report: Dementia Psych: Report: Psychosis Musculoskeletal: Report: Osteoarthritis Rheumatologic: Report: No pertinent Hx Infectious Disease: Report: No Pertinent Hx Renal/: Report: No Pertinent Hx Endocrine: Report: Diabetes Dermatology: Report: No Pertinent Hx - Past Surgical History Past Surgical History: No pertinent Hx Family Medical History - Family Member Father History Unknown: Yes Ethnicity: Non- Hx Family Cancer: No Hx Family Coronary Artery Disease: Yes Hx Family Congestive Heart Failure: No Hx Family Hypertension: Yes Hx Family Stroke: No Hx Family Diabetes: Yes Hx Family Seizures: No Hx Family Dementia: No Hx Family COPD: No Mother History Unknown: Yes Ethnicity: Unknown Living Status: Unknown Hx Family Cancer: No Hx Family Coronary Artery Disease: No Hx Family Congestive Heart Failure: No Hx Family Hypertension: No Hx Family Stroke: No Hx Family Diabetes: No Hx Family Seizures: No Hx Family Dementia: No Hx Family AIDS: No Hx Family HIV: No Hx Family COPD: No Hx Family Hepatitis: No Hx Family Psychiatric Problems: No Hx Family Tuberculosis: No Social History Smoke: No Alcohol: None Drugs: None Lives: [facility] Domestic Violence: Negative - Medications Home Medications: Home Medication Medication Instructions Recorded Type Apixaban [Eliquis] 5 mg PO BID 01/07/18 History Amiodarone [Cordarone] 100 mg PO DAILY tab 01/24/18 Rx Docusate Sodium [Colace] 100 mg PO BID cap 01/24/18 Rx Famotidine [Pepcid] 20 mg PO BID tab 01/24/18 Rx amLODIPine Besylate [Norvasc] 10 mg PO DAILY tab 01/24/18 Rx Acetaminophen [Tylenol] 650 mg PO Q4HR PRN 06/19/18 History Donepezil Hcl [Aricept] 10 mg PO HS 06/19/18 History Magnesium Hydroxide [Milk of 30 ml PO DAILY PRN 06/19/18 History Magnesia] Memantine [Namenda] 10 mg PO DAILY 06/19/18 History Multivitamin w/ Minerals 1 tab PO DAILY 06/19/18 History [Theragran M] Sitagliptin [Januvia] 50 mg PO DAILY 06/19/18 History - Allergies Allergies/Adverse Reactions: Allergies Allergy/AdvReac Type Severity Reaction Status Date / Time No Known Allergies Allergy Verified 01/07/18 20:55 Review of Systems - Review of Systems Constitutional: Report: No Significant Eyes: Report: No Significant ENT: Report: No Significant Respiratory: Report: No Significant Cardiovascular: Report: No Significant Gastrointestinal: Report: No Significant Genitourinary: Report: No Significant Musculoskeletal: Report: No Significant Skin: Report: No Significant Neurological: Report: No Significant Physical Exam - Physical Exam HEENT: Report: Pharnyx within normal limits, Pale Conjunctiva Neck: Report: Within normal limits Cardiovascular Systems: Report: Systolic Murmur, Irregular rhythm was noted Respiratory: Report: Breath Sounds are within normal limits Abdomen: Report: Non-tender to palpation Back: Report: Inspection of back is within normal limits. Extremities: Report: Non-tender to palpation., No pedal edema was noted on inspection Skin: Report: Color of skin is within normal limits Neuro/Psych: Report: CN II-XII intact, No motor deficit, No new focal deficits - Lab Results All Lab Results last 24 hours: Laboratory Results - last 24 hr 06/19/18 06/19/18 06/19/18 17:57 17:57 17:57 WBC 5.9 RBC 4.43 Hgb 12.3 Hct 36.4 L MCV 82.3 MCH 27.7 MCHC Differential 33.6 RDW 14.4 Plt Count 239 MPV 6.1 Neutrophils % 54.5 Lymphocytes % 33.2 Monocytes % 9.1 Eosinophils % 2.7 Basophils % 0.5 Sodium 138 Potassium 4.3 Chloride 107 Carbon Dioxide 21.7 Anion Gap 13.6 BUN 32 H Creatinine 1.7 H Est GFR ( Amer) TNP Est GFR (Non-Af Amer) TNP BUN/Creatinine Ratio 18.8 Glucose 128 H Hemoglobin A1c % 6.6 H Calcium 9.3 Total Bilirubin 0.4 AST 13 ALT 10 Alkaline Phosphatase 67 Total Protein 6.9 Albumin 4.2 Globulin 2.7 Albumin/Globulin Ratio 1.6 Triglycerides 120 Cholesterol 185 LDL Cholesterol Direct 104 HDL Cholesterol 58 TSH Salicylates < 25.0 L Acetaminophen < 10.0 L Ethyl Alcohol < 10 06/19/18 17:57 WBC RBC Hgb Hct MCV MCH MCHC Differential RDW Plt Count MPV Neutrophils % Lymphocytes % Monocytes % Eosinophils % Basophils % Sodium Potassium Chloride Carbon Dioxide Anion Gap BUN Creatinine Est GFR ( Amer) Est GFR (Non-Af Amer) BUN/Creatinine Ratio Glucose Hemoglobin A1c % Calcium Total Bilirubin AST ALT Alkaline Phosphatase Total Protein Albumin Globulin Albumin/Globulin Ratio Triglycerides Cholesterol LDL Cholesterol Direct HDL Cholesterol TSH 2.46 Salicylates Acetaminophen Ethyl Alcohol - Assessment Assessment: Current Active Problems Problem Status Onset AGITATED AND UNCOOPERATIVE WITH CARE Acute Chronic atrial fibrillation. Type 2 diabetes mellitus. Hypertension. Hyperlipidemia. Alzheimer's dementia. Diffuse degenerative disease Psychiatric disorder Exacerbation. Debility. Fall risk - Plan Plan: Admit to geropsychiatric. Monitor blood sugar and blood pressure. Fall precaution. Diabetes management. General nursing care. Chronic disease management. Medication management. Medication reconciliation. Nutritional support. We will continue to follow this patient during the stay in the hospital. Psychiatric evaluation and management deferred to psychiatrist. Care plan reviewed and discussed with staff.
[2018-06-20] MEDS: Multivitamin Tab PO SCH (09:40)
--- NOTE | 2018-06-20 13:01 | Psychiatric Evaluation ---
DATE OF SERVICE: 06/19/2018 IDENTIFYING INFORMATION: The patient is a 77-year-old female. CHIEF COMPLAINT: "I don't know." HISTORY OF PRESENT ILLNESS: The patient was referred from [facility] because of agitation, irritability, aggressive behavior, resistant to care. The patient herself when asked, she said I don't know why I am here. They did not tell me, when asked about the date, her age, she said none of your business who are you and I explained to her that I am the doctor she said no you are stupid, you cannot be the doctor. She was very hard to redirect. When asked about if she is single, has children. She answer. She was very irritable, agitated. The patient is demented, confused. She is well known case to have been seeing her at [facility]. The patient is already on Aricept 10 mg at bedtime, Namenda 10 mg daily. PAST PSYCHIATRIC HISTORY: The patient has a history of paranoid schizophrenia. I have been seeing her at [facility]. The patient is a poor historian, unable to give me any information regarding her history. She was agitated, paranoid, unable to state safe plan for self-care or why she is here. Calling me stupid. She was obviously very paranoid. MEDICAL HISTORY: Deferred to Dr. Cardona. ALLERGIES: The patient has no known drug allergies. FAMILY AND SOCIAL HISTORY: The patient is not willing to give me any information. MENTAL STATUS EXAMINATION: The patient is appropriately dressed, not well groomed. She was agitated, paranoid toward me. She started calling me name stupid and so on, would not give me any information. She was confused, unable to participate in memory testing with poor concentration, unpredictable and impulsive. She was aggressive, agitated, resisting care at the half-way. Her insight and judgment is impaired. IMPRESSION: AXIS I: Psychosis, not otherwise specified, history of conduct paranoid schizophrenia, also dementia. MEDICAL DIAGNOSES: As per Dr. Cardona. Her assets, she is accepting treatment. Negative poor coping skills. INITIAL TREATMENT PLAN: The patient will be started on Abilify 2 mg a day. We will do group therapy, milieu therapy, and individual therapy. ESTIMATED LENGTH OF STAY: 3-7 days. DISCHARGE CRITERIA: Decreasing psychosis, paranoia, agitation. After discharge, outpatient treatment. JOB# [id number]
[2018-06-21] MEDS: Multivitamin Tab PO SCH (09:19)
--- NOTE | 2018-06-21 17:57 | Progress Notes ---
DATE: 06/21/2018 DATE OF SERVICE: 06/21/2018 IDENTIFICATION: A 77-year-old female. SUBJECTIVE: Patient seen and examined. The patient is lying in the bed. The patient is very well known to me from [facility]. The patient does not provide any meaningful history today. PHYSICAL EXAMINATION: On today's exam; VITAL SIGNS: See nurse's note. HEENT: No facial asymmetry. NECK: Supple, no JVD. HEART: Irregularly irregular. CHEST AND LUNGS: Equal in expansion, no expiratory wheezing. ABDOMEN: Soft. No guarding or rigidity. Bowel sounds . EXTREMITIES: No edema. NEUROLOGIC: Alert, awake, follows commands. CLINICAL IMPRESSION: 1. Chronic atrial fibrillation. 2. Psychiatric disorder exacerbation. 3. Alzheimer dementia. 4. Diabetes. 5. Hypertension. 6. Degenerative joint disease. 7. High risk for fall. PLAN: 1. Diabetes management. 2. Antihypertensive medicine. 3. Rate control. 4. Anticoagulation therapy. 5. Fall precautions. 6. General nursing care. 7. Continue current treatment plan as prescribed. 8. Symptoms management. 9. Medication management. 10. Care plan reviewed and discussed with staff. JOB# [id number]
[2018-06-22] MEDS: Multivitamin Tab PO SCH (09:34)
--- NOTE | 2018-06-22 19:39 | Progress Notes ---
DATE: 06/22/2018 SUBJECTIVE: Chart reviewed and the patient interviewed. Also discussed the patient's condition with the staff and reviewed records and labs. The patient is still confused and she is still forgetful. The patient also is still easily agitated and she is still in irritable mood and paranoid. Also, the patient has been delusional. She also still needs lots of redirections. Otherwise, the patient is compliant with taking her medications with no side effects of medications. The patient continued to take Abilify 2 mg every day as well as Aricept and Namenda with no side effects. JOB# [id number]
[2018-06-23] MEDS: Multivitamin Tab PO SCH (08:57)
--- NOTE | 2018-06-23 11:48 | Progress Notes ---
DATE: SUBJECTIVE: The patient is seen and examined. The patient is lying in the bed. No new event. Discussed with nursing staff about the concern. OBJECTIVE: VITAL SIGNS: Temperature 98.1, pulse is 55, respiratory rate is 16, blood pressure 142/68. HEENT: No facial asymmetry. NECK: Supple, no JVD. HEART: Regular. CHEST AND LUNGS: Equal in expansion. No expiratory wheezing. ABDOMEN: Soft. No guarding, no rigidity. Bowel sounds present. EXTREMITIES: No edema, no cyanosis. NEUROLOGIC: Alert, awake, follows commands. Decreased power throughout the upper lobe was noted. CLINICAL IMPRESSION: 1. Atrial fibrillation. 2. Psychotic disorder. 3. ____ dementia. 4. Diabetes. 5. Hypertension. 6. Degenerative joint disease. 7. High risk for fall. PLAN: 1. Rate control. 2. Anticoagulation therapy. 3. Psych medication. 4. Psych followup. 5. Monitor blood sugar. 6. Monitor blood pressure. 7. Chronic disease management. 8. General nursing care. 9. Continue other medicine as prescribed. 10. Care plan has been discussed with staff. JOB# [id number]
--- NOTE | 2018-06-23 12:47 | Progress Notes ---
DATE: 06/21/2018 SUBJECTIVE: The patient interviewed. Case was discussed with staff and chart reviewed. Per the staff, the patient has been paranoid. The patient also has been talking to herself. The patient was interviewed this morning at bedside. The patient appears to be very paranoid. The patient is actively responding to internal stimuli. The patient is stating very aggressive things to the voices that she is talking to. The patient reports, "I feel ." The patient is malodorous and she is uncooperative otherwise with the interview. MENTAL STATUS EXAMINATION: The patient is malodorous. She is disheveled. She has poor eye contact. She appears to be angry. She is speaking in a mumbled and rapid tone. Her thought process is disorganized. Unable to assess suicidal or homicidal ideations, but she does report "I feel ." The patient is actively responding to internal stimuli, which is provoking agitation. She also appears to be paranoid. She is alert and oriented to person, otherwise unable to assess. Her insight, judgment and impulse control remain poor. ASSESSMENT: This is a 77-year-old female admitted to [facility]. The patient at this time continues to be disorganized. She continues to respond heavily to internal stimuli. She seems to be easily agitated, provoked, and she is uncooperative overall. PLAN: I will continue the patient's acute hospitalization. Continue medications prescribed. Encourage the patient to verbalize her needs. Encourage patient to participate in group and milieu therapy. Encourage patient to work with the social work and case hardener for discharge planning and need for community resources. [facility]# [id number] [facility]
--- NOTE | 2018-06-23 22:57 | Progress Notes ---
DATE: 06/23/2018 Case was discussed with staff of the patient, reviewed records. The patient continues to have poor insight, unpredictable, impulsive, easily agitated, tolerated the Abilify ____ for her still looking disheveled. Continues to be unable to make safe plan for self-care or easily agitated. She is sleeping well. She can feed herself. Lab work shows low hematocrit. The rest of the CBC within normal range. Chemistry panel with high BUN, high creatinine, high blood sugar, high hemoglobin A1c and that would be managed by the medical doctor. Lipid profile within normal range. RPR nonreactive and we will continue to work with the patient in group therapy, milieu therapy, adjust the medication as needed. JOB# [id number]
[2018-06-24] MEDS: Multivitamin Tab PO SCH (09:09)
--- NOTE | 2018-06-24 20:37 | Progress Notes ---
DATE: 06/24/2018 Case was discussed with staff of the patient, reviewed records. The patient continues to have poor insight, unpredictable and impulsive. Looking disheveled, disorganized, internally preoccupied, easily agitated, sleeping well, eating well. She can feed herself. No side effects from the medication, no sedation, no nausea and no extrapyramidal symptoms. We will continue outpatient group therapy, milieu therapy, adjust medication as needed. JOB# [id number]
--- NOTE | 2018-06-25 00:26 | Progress Notes ---
DATE: 06/24/2018 SUBJECTIVE: The patient seen and examined. The patient is lying in the bed. The patient has no new event. Discussed with nursing staff about the concern. PHYSICAL EXAMINATION: VITAL SIGNS: See nurse's note. HEENT: No facial asymmetry. NECK: Supple, no JVD. HEART: Irregularly irregular. CHEST: Equal in expansion, expiratory wheezing. ABDOMEN: Soft. No guarding or rigidity. Bowel sounds are positive. EXTREMITIES: No edema. CLINICAL IMPRESSION: 1. Chronic atrial fibrillation. 2. Chronic long-term anticoagulation therapy. 3. Psychotic disorder. 4. Alzheimer's type dementia. 5. Diabetes. 6. Hypertension. 7. Degenerative joint disease. 8. High risk for fall. PLAN: 1. Rate control. 2. Anticoagulation therapy. 3. Psych medication. 4. Psych followup. 5. General nursing care. 6. Fall precautions. 7. Care plan reviewed and discussed with staff. JOB# [id number]
[2018-06-25] MEDS: Multivitamin Tab PO SCH (10:00)
--- NOTE | 2018-06-25 11:04 | Progress Notes ---
DATE: 06/25/2018 Case was discussed with staff of the patient, reviewed records. The patient continues to look disheveled, disorganized, internally preoccupied. Continues to have poor insight. She is demented, confused, unable to make safe plan for self-care. I initiated Abilify on her and that was a point in the , no side effects, no sedation, no nausea, no extrapyramidal symptoms. She is also on Aricept 10 mg a day as well as Namenda 10 mg daily. I will be increasing her Namenda to 10 mg twice a day and so far no side effects, no sedation, no nausea, no extrapyramidal symptoms and we will continue to work with the patient in group therapy, milieu therapy, adjust medication as needed. JOB# [id number]
--- NOTE | 2018-06-25 12:53 | Progress Notes ---
DATE: 06/25/2018 SUBJECTIVE: The patient is seen and examined. No chest pain, shortness of breath, palpitation, or dizziness. Discussed with filling mixer about the treatment plan. PHYSICAL EXAMINATION: VITAL SIGNS: Temperature 97.8, pulse is 76, respiratory rate is 18, blood pressure 130/70. HEENT: No facial asymmetry. NECK: Supple, no JVD. HEART: Irregularly irregular. CHEST: Lung equal in expansion. No expiratory wheezing. ABDOMEN: Soft. No guarding, rigidity. Bowel sounds present. No palpable mass. EXTREMITIES: No edema. CLINICAL IMPRESSION: 1. Acute exacerbation of psychotic disorder. 2. Hypertension. 3. Chronic atrial fibrillation. 4. Diabetes mellitus. 5. Hypertension. 6. Degenerative joint disease. 7. High risk for fall. PLAN: 1. Rate control. 2. Amiodarone. 3. Anticoagulation therapy. 4. Antihypertensive medicine. 5. Fall precautions. 6. Diabetes management. 7. Monitor blood sugar and blood pressure. 8. General nursing care. 9. We will continue to follow this patient during the stay in the hospital. JOB# [id number]
[2018-06-26] MEDS: Multivitamin Tab PO SCH (09:51)
--- NOTE | 2018-06-26 15:20 | Progress Notes ---
DATE: 06/26/2018 Case was discussed with staff of the patient, reviewed records. The patient continues to be confused, demented. Continues to have poor insight. Continues to be unable to buy meaningful conversation, express herself. Continues to have poor insight. She is demented, confused, easily agitated. I will be increasing her Abilify dose to 5 mg daily to help with her agitation, confusion and so far no side effects with the medication, no sedation, no nausea, no extrapyramidal symptoms. We will continue to work with the patient in group therapy, milieu therapy, adjust medication as needed. JOB# [id number]
--- NOTE | 2018-06-26 23:43 | Progress Notes ---
DATE: 06/26/2018 SUBJECTIVE: The patient seen and examined. The patient is lying in the bed. The patient denies any chest pain, shortness of breath, palpitation, dizziness, nausea, vomiting, diarrhea. PHYSICAL EXAMINATION: VITAL SIGNS: On exam, temperature 97, pulse is 64, respiratory rate is 14, blood pressure 144/80. HEENT: No facial asymmetry. NECK: Supple, no JVD. HEART: Irregularly irregular. CHEST AND LUNGS: Equal in expansion. No expiratory wheezing. ABDOMEN: Soft, no guarding, no rigidity. Bowel sounds are present. No palpable mass. EXTREMITIES: No edema. NEUROLOGIC: Nonfocal. CLINICAL IMPRESSION: 1. Psychotic disorder exacerbation. 2. Chronic atrial fibrillation. 3. Hypertension. 4. Diabetes. 5. Degenerative joint disease. 6. Debility. PLAN: 1. Psychotic evaluation and management deferred to psychiatrist. 2. Antihypertensive medicine. 3. Rate control. 4. Anticoagulation therapy. 5. Fall precaution. 6. Diabetes management. 7. General nursing care. 8. Nutritional support. 9. Care plan reviewed and discussed with staff. JOB# [id number]
[2018-06-27] MEDS: Multivitamin Tab PO SCH (09:36)
[2018-06-28] MEDS: Multivitamin Tab PO SCH (09:22)
--- NOTE | 2018-06-28 09:28 | Progress Notes ---
DATE: 06/27/2018 SUBJECTIVE: The patient seen and examined. The patient is lying in the bed. No new event. PHYSICAL EXAMINATION: VITAL SIGNS: See nurse's note. HEENT: Poor dentition. NECK: Supple, no JVD. HEART: Regular. CHEST AND LUNGS: Equal in expansion, no expiratory wheezing. ABDOMEN: Soft. No guarding, rigidity. Bowel sounds are present. No palpable mass. EXTREMITIES: No edema. NEUROLOGIC: Alert, awake, follows commands. CLINICAL IMPRESSION: 1. Chronic atrial fibrillation. 2. Diabetes. 3. Psych disorder. 4. Degenerative joint disease. 5. Hypertension. 6. Fall risk. PLAN: 1. Psych medication. 2. Psych followup. 3. Rate control. 4. Anticoagulation therapy. 5. General nursing care. 6. Medication management. 7. Symptoms management. 8. Follow lab. 9. We will continue to follow this patient during the stay in the hospital. JOB# [id number]
--- NOTE | 2018-06-28 09:28 | Progress Notes ---
DATE: 06/27/2018 Case was discussed with staff of the patient, reviewed records. The patient continues to be confused, demented, irritable. She is able to feed herself however. She tolerated the increase in Abilify yesterday with no side effects, no sedation, no nausea, no extrapyramidal symptoms. ____ and no side effects with the medication. We will continue to work with the patient in group therapy and milieu therapy, adjust the medication as needed. JOB# [id number]
--- NOTE | 2018-06-28 23:44 | Progress Notes ---
DATE: 06/28/2018 Case was discussed with staff of the patient, reviewed records. The patient continues to be confused, unpredictable, impulsive, needing redirection, continues to have poor insight. She has episodes of agitation, irritability. She has been compliant with the medication with no side effects, no sedation or nausea. I increased her Abilify dose yesterday to 5 mg a day. Today, she is a little bit more clear. Able to answer questions more appropriately. No side effects with the medication. No sedation, no nausea, no extrapyramidal symptoms. We will continue to work with the patient in group therapy, milieu therapy, and adjust medication as needed. JOB# [id number]
[2018-06-29] MEDS: Multivitamin Tab PO SCH (08:45)
--- NOTE | 2018-06-29 21:31 | Progress Notes ---
DATE: 06/29/2018 PROGRESS IN THE UNIT: Case was discussed with staff of the patient, reviewed records. The patient continues to be confused, demented, unable to make safe plan for self-care, unable to participate in a meaningful conversation. She is internally preoccupied. She sleeps well, eats well. Tolerating the increase in Abilify, no side effects, no sedation or nausea, no extrapyramidal symptoms. PLAN: We will continue the patient in group therapy and milieu therapy, adjust medications. JOB# [id number]
[2018-06-30] MEDS: Multivitamin Tab PO SCH (08:50)
--- NOTE | 2018-06-30 19:54 | Progress Notes ---
DATE: IDENTIFICATION: A 77-year-old female patient, sitting in the chair. SUBJECTIVE: The patient has no new event. The patient denies any chest pain. No shortness of breath, palpitation, or dizziness. No active bleeding, currently on blood thinner. PHYSICAL EXAMINATION: VITAL SIGNS: Temperature 97.4, pulse is 54, respiratory rate is 18, blood pressure 121/70. HEENT: No facial asymmetry. NECK: Supple, no JVD. CARDIOVASCULAR: Irregularly irregular. CHEST AND LUNGS: Equal in expansion. No expiratory wheezing. ABDOMEN: Soft. No guarding, no rigidity. Bowel sounds are present. Palpable mass. EXTREMITIES: No edema. Diffuse osteoarthritic changes noted. CLINICAL IMPRESSION: 1. Chronic atrial fibrillation. 2. Diabetes mellitus. 3. Hypertension. 4. Psychiatric disorder exacerbation. 5. Degenerative joint disease. 6. High risk for fall. PLAN: 1. Psychiatric disorder evaluation and management deferred to psychiatrist. 2. Rate control. 3. Anticoagulation therapy. 4. Diabetes management. 5. Fall precautions. 6. Antihypertensive medication. 7. General nursing care. 8. Care plan reviewed and discussed with staff. JOB# [id number]
--- NOTE | 2018-06-30 21:08 | Progress Notes ---
DATE: 06/30/2018 SUBJECTIVE: Case was discussed with staff of the patient, reviewed records. The patient is tolerating increase in Abilify to 5 mg a day. She is still not feeling well, have multiple somatic complaints, sleeping well, eating well, complaining of headache. No side effects with the medication, no sedation, no nausea, and no extrapyramidal symptoms. I asked staff to discuss with her medical doctor regarding her headache. We will continue to work with the patient in group therapy, milieu therapy, and adjust the medications as needed. JOB# [id number]
[2018-07-01] MEDS: Multivitamin Tab PO SCH (09:20)
--- NOTE | 2018-07-01 23:37 | Progress Notes ---
DATE: 07/01/2018 SUBJECTIVE: Case was discussed with staff of the patient, reviewed records. The patient continues to mumble to herself. Today, I tried to carry conversation for her and I could understand, so I asked her to ____, she insisted that I hear to her and I said well please tell me again, she wouldn't. She continues to be irritable. She continues to have poor insight, unpredictable, and impulsive. She is also diabetic. She is demented. She is on 10 mg of Aricept and Namenda 10 mg twice a day with no side effects, no sedation, no nausea, and I have her on Abilify and I increase the dose of Abilify to 5 mg a day with no side effects, no sedation, no nausea, and no extrapyramidal symptoms. She stays in bed most of the time, very poor insight. We will continue to work with the patient in group therapy, milieu therapy, and adjust the medications as needed. JOB# [id number]
[2018-07-02] MEDS: Multivitamin Tab PO SCH (09:15)
--- NOTE | 2018-07-02 16:28 | Progress Notes ---
DATE: 07/02/2018 SUBJECTIVE: The patient seen and examined. The patient is lying in the bed. No new event. The patient remained hemodynamically stable and discussed with nursing staff about their concern. OBJECTIVE: VITAL SIGNS: Temperature 97.6, pulse is 60, respiratory rate 18, and blood pressure 136/60. HEENT: No facial asymmetry. NECK: Supple, no JVD. HEART: Irregularly irregular. CHEST AND LUNGS: Equal in expansion, no expiratory wheezing. ABDOMEN: Soft, no guarding or rigidity. Bowel sounds present. No palpable mass. EXTREMITIES: No edema. NEUROLOGIC: Alert, awake, follows commands. AVAILABLE DIAGNOSTIC DATA: None for my review. Medication admission record is reviewed. CLINICAL IMPRESSION: 1. Chronic atrial fibrillation. 2. Hypertension. 3. Diabetes. 4. Degenerative joint disease. 5. Psychotic disorder. 6. Dementia. PLAN: 1. Rate control. 2. Anticoagulation. 3. Psych followup. 4. Psych medication. 5. Monitor blood sugar and blood pressure. 6. Fall precaution. 7. General nursing care. 8. Care plan reviewed and discussed. JOB# [id number]
--- NOTE | 2018-07-02 21:28 | Progress Notes ---
DATE: 07/02/2018 SUBJECTIVE: Case was discussed with staff of the patient, ____. The patient continues with same bed. She complained of headache and asked the staff to talk to the medical doctor to address it. She has been complaining about almost every day. She is rambling in her speech, very hard to understand. Continues to be having episodes of agitation and irritability, continues to be unpredictable and impulsive, looking disheveled and disorganized. No side effects with the medication, no sedation, no nausea, and no extrapyramidal symptoms. PLAN: To increase Abilify. We will continue to work with the patient in group therapy, milieu therapy, and adjust medication as needed. JOB# [id number]
[2018-07-03] MEDS: Multivitamin Tab PO SCH (09:40)
--- NOTE | 2018-07-03 18:20 | Progress Notes ---
DATE: 07/03/2018 SUBJECTIVE: The patient seen and examined. The patient lying in the bed. Upon further questioning, the patient complained of intermittent headache. The patient denies any chest pain, denies any shortness of breath, denies any palpitation. Denies any dizziness, nausea, or vomiting. PHYSICAL EXAMINATION: VITAL SIGNS: See nurse's note. Temperature 97.9, pulse 60, respiratory rate 18, and blood pressure 140/60. HEENT: No facial asymmetry. NECK: Supple, no JVD. HEART: Irregularly irregular. CHEST: Lung equal in expansion, no expiratory wheezing. ABDOMEN: Soft. EXTREMITIES: No edema. NEUROLOGIC: Alert, awake, follows commands. CLINICAL IMPRESSION: 1. Headache on and off. Etiology needs to determine possibly secondary to Norvasc. 2. Dementia. 3. Diabetes. 4. Hypertension. 5. Degenerative joint disease. 5. Atrial fibrillation. PLAN: Discontinue Norvasc and use of beta ines for the blood pressure. Also provide symptomatic management of headache with Tylenol. Continue to monitor blood sugar, blood pressure, general nursing care. Psychiatric management as per psychiatrist. Follow lab and follow consult recommendations. Care plan has been reviewed and discussed with staff. JOB# [id number]
--- NOTE | 2018-07-03 21:31 | Progress Notes ---
DATE: 07/03/2018 Case was discussed with staff of the patient, reviewed records. The patient continues to stay in bed, internally preoccupied, unable to make safe plan for self-care. Continues to have poor insight, unable to express herself very well. I did discuss with staff to make sure they take care of her complaint about headache that she has been telling me every day and she is still confused. She is demented. Her acting out behavior is not as prominent. No side effects of the medication, no sedation, no nausea, no extrapyramidal symptoms. We will continue the patient in group therapy, milieu therapy, and adjust medications as needed. JOB# [id number]
[2018-07-04] MEDS: Multivitamin Tab PO SCH (09:32)
--- NOTE | 2018-07-04 22:51 | Progress Notes ---
DATE: 07/04/2018 Case was discussed with staff of the patient, reviewed records. The patient continues to be demented, confused. She has this morning waked up with severe diarrhea, so I will be asking the medical doctor to evaluate her, so far she is compliant with the medication with no side effects, no sedation, no nausea, no extrapyramidal symptoms. I am not sure about the diarrhea; however, I do not feel she needs a stool culture and we will continue with the outpatient group therapy, milieu therapy and adjust the medication as needed. JOB# [id number]
[2018-07-05] MEDS: Multivitamin Tab PO SCH (09:19)
--- NOTE | 2018-07-06 00:27 | Progress Notes ---
DATE: 07/05/2018 SUBJECTIVE: The patient seen and examined. The patient is lying in the bed. The patient has no new event. No new complaints. PHYSICAL EXAMINATION: VITAL SIGNS: Temperature 97.7, pulse 56, respiratory rate 18, blood pressure 116/69. HEENT: No facial asymmetry. Poor dentition noted. NECK: Supple, no JVD. HEART: Irregular. CHEST AND LUNGS: Equal in expansion, no expiratory wheezing. ABDOMEN: Soft, no guarding, no rigidity. Bowel sounds present. No palpable mass. EXTREMITIES: No edema. CLINICAL IMPRESSION: 1. Diabetes. 2. Alzheimer's dementia. 3. Psychotic disorder. 4. Chronic atrial fibrillation. 5. Hypertension. 6. Degenerative joint disease. 7. Headache, resolved. PLAN: 1. Continue carvedilol. 2. Amiodarone. 3. Aricept. 4. Pepcid. 5. Namenda. 6. Januvia for diabetes. 7. Monitor blood sugar and blood pressure. 8. Fall precaution. 9. Symptoms management. 10. General nursing care. 11. Care plan reviewed and discussed with staff. JOB# [id number]
--- NOTE | 2018-07-06 02:34 | Progress Notes ---
DATE: PSYCHIATRIC FOLLOWUP NOTE Covering for Dr. Valente. IDENTIFYING DATA: A 77-year-old female with a history of aggressive behavior, was brought in here from [place]. presented disorganized. Nursing staff reported, the patient mostly be responding, in her room, disengaged and withdrawn. Today on [id number] evaluation, the patient is mostly refusing questions, mostly just looks at the ground and does not give much more information beyond that. CURRENT MEDICATIONS: The patient is on amiodarone, Abilify, Coreg, Donepezil 10 mg, Ativan as needed, Namenda 10 mg p.o. b.i.d. MENTAL STATUS EXAMINATION: Aloof, disengaged, withdrawn, suspicious, and paranoid. ASSESSMENT AND PLAN: A 77-year-old female with behavior disturbances and paranoia coming from severe dementia. Due to the patient's still ongoing suspicious and paranoid state, unable to form a safe plan outside of the structured environment. We will continue with primary psychiatrist's treatment plan and goals. JOB# [id number]
[2018-07-06] MEDS: Multivitamin Tab PO SCH (09:12)
--- NOTE | 2018-07-06 09:49 | Progress Notes ---
DATE: 07/06/[address] Valente. SUBJECTIVE: Today on [id number], nursing staff reporting the patient continues to observe to be slightly responding. Today on [id number], disengaged, refusing interview, minimally interactive and unable to engage in a meaningful linear conversation. MENTAL STATUS EXAMINATION: Aloof, disengaged, withdrawn. ASSESSMENT AND PLAN: A 77-year-old female with a history of dementia with behavior disturbances and paranoia. Due to the patient continued paranoid state, unable to formulate a safe plan. We will continue with primary psychiatrist's treatment plan and goals. JOB# [id number]
[2018-07-07] MEDS: Multivitamin Tab PO SCH (09:41)
--- NOTE | 2018-07-07 21:30 | Discharge Summary ---
DATE OF DISCHARGE: 07/07/2018 IDENTIFYING INFORMATION: The patient is a 77-year-old female. CHIEF COMPLAINT: "I don't know." HISTORY OF PRESENT ILLNESS: The patient was referred from [place] because of agitation, irritability, aggressive behavior, and resistant to care. The patient was unable to give information. She was demented, confused, and easily agitated. When I tried to talk or ask her questions, "she wouldn't answer me. She tells me I am not a doctor. She told me I am stupid. You cannot be the doctor." She was very hard to redirect, unable to ____ a meaningful conversation, demented, and confused. COURSE IN THE HOSPITAL: The patient was started on Abilify and the dose increased to 5 mg daily. The patient was continued with medications, Cardura for her blood pressure, Coreg, Aricept 10 mg at bedtime, and Pepcid 20 mg daily. The patient is also on Namenda 10 mg twice a day, multivitamin tablet daily, and Januvia 50 mg daily for her diabetes. The patient progressively got better. She was no longer acting in an aggressive, irritable manner. She was responding better to redirection, sleeping well, eating well. We felt she could be discharged to a lesser level of care. 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 MEDICAL DIAGNOSES: Hypertension, hyperlipidemia, gastroesophageal reflux disease, and diabetes mellitus. The patient will be discharged back to [place] with followup with the psychiatrist and the primary care physician. EXPECTED OUTCOME: Stable if the patient complies with the above. [facility]# [id number]
== END 2018-07-07 17:15 | DRG 885 ==
LOC: ER 17:13 → GERO2 18:50
PROVIDERS: ADMIT Psychiatry & Neurology Psychiatry; ATTEND Psychiatry & Neurology Psychiatry
DX: F23 Brief psychotic disorder (principal); F02.80 Dementia in other diseases classified elsewhere, unspecified severity, without behavioral disturbance, psychotic disturbance, mood disturbance, and anxiety; I10 Essential (primary) hypertension; E11.9 Type 2 diabetes mellitus without complications; K21.9 Gastro-esophageal reflux disease without esophagitis; M19.90 Unspecified osteoarthritis, unspecified site; I48.2 Chronic atrial fibrillation; I25.10 Atherosclerotic heart disease of native coronary artery without angina pectoris; G30.9 Alzheimer's disease, unspecified; R53.81 Other malaise; R51 Headache; E78.5 Hyperlipidemia, unspecified; Z82.49 Family history of ischemic heart disease and other diseases of the circulatory system; Z91.81 History of falling; Z79.899 Other long term (current) drug therapy
CPT/HCPCS: 36415-UA; 80053-TC; 80061-TC; 80320-TC; 80329-TC; 83036-90; 84443-TC; 85025-TC; 86592-TC; 93005; Z7610

== ENCOUNTER 2019-03-16 13:53 | Inpatient (IN) | payer MEDICARE, MEDICAID ==
[2019-03-16] MEDS ORDERED: Sodium Chloride 0.9% 1,000 ML IV ONE (14:16)
--- NOTE | 2019-03-16 14:20 | ED Physician Chart ---
ED Chief Complaint/HPI - Patient Information Date Seen:: 03/16/19 Time Seen:: 14:00 Chief Complaint:: Weakness History of Present Illness:: onset x 3 days of weakness and cough with abnormal labs today; no report of trauma, H/As, neck pain, C/P, SOB, Abd. Pain, A/N/V/D/C, fever, chills, or urinary s/s Allergies:: Allergies Allergy/AdvReac Type Severity Reaction Status Date / Time No Known Allergies Allergy Verified 01/07/18 20:55 Vitals:: Vital Signs - 8 hr 03/16/19 13:58 Temp 97.8 F HR 74 RR 16 BP 129/53 O2 Sat % 99 Historian:: Patient, EMS Review:: Nurse's Note Reviewed, Old Chart Reviewed, EMS run form Reviewed ED Review of Systems - Review of Systems General/Constitutional: No fever, No chills, No weight loss, Weakness, No diaphoresis, No edema, No loss of appetite Skin: No skin lesions, No rash, No bruising Head: No headache, No light-headedness Eyes: No loss of vision, No pain, No diplopia ENT: No earache, No nasal drainage, No sore throat, No tinnitus Neck: No neck pain, No swelling, No thyromegaly, No stiffness, No mass noted Cardio Vascular: No chest pain, No palpitations, No PND, No orthopnea, No edema Pulmonary: No SOB, No cough, No sputum, No wheezing GI: No nausea, No vomiting, No diarrhea, No pain, No melena, No hematochezia, No constipation, No hematemesis G/U: No dysuria, No frequency, No hematuria, No nacturia Siebel Administrator: No vaginal discharge, No abnormal vaginal bleed, No contraction Musculoskeletal: No bone or joint pain, No back pain, No muscle pain Endocrine: No polyuria, No polydipsia Psychiatric: Prior psych history, Depression, Anxiety, No suicidal ideation, No homicidal ideation, Auditory hallucination, No visual hallucination Hematopoietic: No bruising, No lymphadenopathy Allergic/Immuno: No urticaria, No angioedema Neurological: No syncope, No focal symptoms, Weakness, No paresthesia, No headache, No seizure, No dizziness, Confusion, No vertigo ED Past Medical History - Past Medical History Obtainable: Yes Past Medical History: HTN, Dyslipidemia, PUD/GERD, Dementia Family History: HTN Social History: Non Smoker, No Alcohol, No Drug Use, , Care Facility Surgical History: None Psychiatricy History: Depression, Schizophrenia, Bipolar, Dementia Medication: Reviewed Family Medical History - Family Member Father History Unknown: Yes Ethnicity: Non- Hx Family Cancer: No Hx Family Coronary Artery Disease: Yes Hx Family Congestive Heart Failure: No Hx Family Hypertension: Yes Hx Family Stroke: No Hx Family Diabetes: Yes Hx Family Seizures: No Hx Family Dementia: No Hx Family COPD: No Mother History Unknown: Yes Ethnicity: Unknown Living Status: Unknown Hx Family Cancer: No Hx Family Coronary Artery Disease: No Hx Family Congestive Heart Failure: No Hx Family Hypertension: No Hx Family Stroke: No Hx Family Diabetes: No Hx Family Seizures: No Hx Family Dementia: No Hx Family AIDS: No Hx Family HIV: No Hx Family COPD: No Hx Family Hepatitis: No Hx Family Psychiatric Problems: No Hx Family Tuberculosis: No ED Physical Exam - Physical Examination General/Constitutional: Awake, Well-developed, well-nourished, Alert, No distress, GCS 15, Non-toxic appearing, Ambulatory Head: Atraumatic Eyes: Lids, conjuctiva normal, PERRL, EOMI Skin: Nl inspection, No rash, No skin lesions, No ecchymosis, Well hydrated, No lymphadenopathy ENMT: External ears, nose nl, TM canals nl, Nasal exam nl, Lips, teeth, gums nl , Oropharynx nl, Tonsils nl Neck: Nontender, Full ROM w/o pain, No JVD, No nuchal rigidity, No bruit, No mass, No stridor Respiratory: Nl effort/Exclusion Other Respiratory comments:: Lungs: + Rales and Rhonchi Cardio Vascular: RRR, No murmur, gallop, rubs, NL S1 S2, Carotid/Femoral/Distal pulses equal bilaterally GI: No tenderness/rebounding/guarding, No organomegaly, No hernia, Normal BS's, Nondistended, No mass/bruits, No McBurney tenderness : No CVA tenderness Extremities: No tenderness or effusion, Full ROM, normal strength in all extremities, No edema, Normal digits & nails Neuro/Psych: Alert/oriented, DTR's symmetric, Normal sensory exam, Normal motor strength, Judgement/insight normal, Mood normal, Normal gait, No focal deficits Misc: Normal back, No paraspinal tenderness ED Labs/Radiology/EKG Results - Lab Results Comments:: Reviewed - Radiology Results Comments:: CXR: COPD; + LLL Infiltrate - EKG Interpretations EKG Time:: 14:34 Rate & Rhythm: 67; NSR Comments:: non-specific st-t changes ED Septic Shock - . Is Septic Shock (SBP<90, OR Lactate>4 mmol\L) present?: No - <6hrs of presentation: Vital Signs: Vital Signs - 8 hr 03/16/19 13:58 Temp 97.8 F HR 74 RR 16 BP 129/53 O2 Sat % 99 ED Reassessment (Disposition) - Reassessment Reassessment Condition:: Improved - Diagnosis Diagnosis:: Weakness; Dementia; PNA; Sepsis; Leukocytosis; COPD; Hyperglycemia; DM; Anemia; Hyponatremia; Dehydration; Hypoalbuminemia; Pre-Renal Azotemia; UTI - Aftercare/Follow up Instructions Aftercare/Follow-Up Instructions:: Counseled pt regarding lab results/diagnosis & need follow up, Counseled pt & family regarding lab results/diagnosis & need follow up - Patient Disposition Discharge/Transfer:: Acute Care w/in this hosp Accepting Physician:: Dr. Cardona Time Called:: 3102 Time Responded:: 15:45 Admitted to:: Telemetry Spoke to:: Dr. Cardona Admitting Medical Physician:: Dr. Cardona Condition at Disposition:: Stable, Improved
[2019-03-16 15:01] LABS: EOSINOPHILE ABSOLUTE 0.1 Th/cmm (0.1-0.4); HEMATOCRIT 30.3 % (41.0-60); HEMOGLOBIN 9.8 gm/dL (12-16); LYMPHOCYTE ABSOLUTE 0.8 Th/cmm (1.5-3.0); MEAN CORPUSCULAR HEMOGLOBIN 26.2 pg (27.0-31.0); MEAN CORPUSCULAR HGB CONC 32.4 pg (28.0-36.0); NEUTROPHILE ABSOLUTE 18.1 Th/cmm (1.8-8.0); PLATELET COUNT 325 Th/cmm (150-400); RED BLOOD COUNT 3.74 Mil/cmm (3.80-5.20); RED CELL DISTRIBUTION WIDTH 12.9 % (11.5-20.0)
[2019-03-16 15:10] LABS: INR 0.98 (0.5-1.4); PROTHROMBIN TIME (TEST) 10.2 SECONDS (9.5-11.5)
[2019-03-16 15:16] LABS: ALB/GLOB RATIO 0.7 (1.0-1.8); ALBUMIN 3.1 gm/dL (3.7-5.3); ALKALINE PHOSPHATASE 100 U/L (34-104); ANION GAP 18.8 (7.0-16.0); BILIRUBIN,TOTAL 0.4 mg/dL (0.3-1.0); BUN - UREA NITROGEN 59 mg/dL (7-25); CALCIUM SERUM 9.1 mg/dL (8.6-10.3); CARBON DIOXIDE 12.2 mEq/L (21.0-31.0); CHLORIDE 100 mEq/L (98-107); CHOLESTEROL 110 mg/dL (<200); CREATININE - SERUM 3.7 mg/dL (0.6-1.2); CREATININE KINASE 332 U/L (30-223); HDL -HIGH DENSITY LIPOPROTEIN 49 mg/dL (23-92); SGOT 13 U/L (13-39); SGPT/ALT 7 U/L (7-52); SODIUM SERUM 126 mEq/L (136-145); TOTAL PROTEIN,SERUM 7.3 gm/dL (6.0-8.3); TRIGLYCERIDES 75 mg/dL (<150)
[2019-03-16 15:35] LABS: AMYLASE SERUM 42 U/L (29-103); LIPASE 39 U/L (11-82)
[2019-03-16] MEDS ORDERED: Levofloxacin 500mg/100mL 500 MG/100 ML BAG IV ONE ×2 (16:10→16:37)
[2019-03-16] MEDS ORDERED: INSULIN HUMAN REGULAR 100 UNITS/ML UNIT SUBQ ONE ×2 (16:11→19:00)
[2019-03-16] MEDS ORDERED: INSULIN HUMAN REGULAR 100 UNITS/ML UNIT ONE ×2 (16:27→19:13)
[2019-03-16 17:18] LABS: URINE SOURCE CLEAN C
[2019-03-16 17:30] LABS: URINE BILIRUBIN NEGATIVE (NEGATIVE); URINE BLOOD LARGE (NEGATIVE); URINE GLUCOSE (UA) 500 mg/dL (NEGATIVE); URINE KETONE NEGATIVE (NEGATIVE); URINE LEUKOCYTE ESTERASE MODERATE (NEGATIVE); URINE MICROSCOPIC INDICATED? YES; URINE NITRATE NEGATIVE (NEGATIVE); URINE PH 5.5 (4.6 - 8.0); URINE PROTEIN 100 mg/dL (NEGATIVE); URINE UROBILINOGEN 0.2 E.U./dL (0.2 - 1.0)
[2019-03-16 17:43] LABS: URINE CLARITY HAZY (CLEAR); URINE COLOR YELLOW
[2019-03-16 18:12] LABS: URINE RBC 0-2 /hpf (0-5)
[2019-03-16 18:13] LABS: URINE EPITHELIAL CELLS RARE /lpf (FEW); URINE WBC >100 /hpf (0-5)
[2019-03-16 18:14] LABS: URINE BACTERIA 2+ /hpf (NONE SEEN)
[2019-03-16] MEDS ORDERED: Sodium Chloride 0.9% 1,000 ML IV SCH (20:15)
[2019-03-16 22:15] LABS: BAND NEUTROPHILE 1 % (0-10); NEUTROPHILS 88 % (40-80)
[2019-03-16 22:16] LABS: LYMPHOCYTE 7 % (20-50); MONOCYTE 4 % (2-10)
[2019-03-16] MEDS ORDERED: Piperacillin Sodium/Tazobact 2.25 gm Vial IV ONE (23:13)
[2019-03-16] MEDS: INSULIN LISPRO SLIDING SCALE 100 UNITS/ML UNIT SUBQ SCH (23:29)
[2019-03-17] MEDS ORDERED: cefTRIAXone 1 GM in Sodium Chloride 0.9% 50 ML IV SCH
[2019-03-17] MEDS ORDERED: Piperacillin Sodium/Tazobact 2.25 gm Vial IV ONE (05:06)
[2019-03-17] MEDS: Sodium Chloride 0.9% 1,000 ML IV SCH ×3 (05:11→20:33)
[2019-03-17] MEDS: INSULIN LISPRO SLIDING SCALE 100 UNITS/ML UNIT SUBQ SCH ×4 (08:00→20:38)
--- NOTE | 2019-03-17 08:43 | Diagnostic Imaging Report ---
Portable chest x-ray History: Shortness of breath, sepsis Allowing for portable technique the heart size is normal. No focal pulmonary parenchymal processes. No hilar or mediastinal abnormalities. Degenerative changes seen to the spine. Impression: No acute abnormalities.
[2019-03-17] MEDS: Multivitamin w/ Minerals Tab PO SCH (09:01)
--- NOTE | 2019-03-17 11:19 | Diagnostic Imaging Report ---
Renal ultrasound HISTORY: Pain The right kidney measures 9.9 x 4.5 x 4.8 cm. There is mild dilatation/hydronephrosis involving the right renal collecting system. Etiology uncertain. The left kidney measures 10.5 x 4.6 x 5.5 cm. Mild dilatation/hydronephrosis involving the renal collecting system. Etiology uncertain. In addition, a 1.1 cm sonolucent lesion is seen in the upper cortex consistent with a cyst. The urinary bladder cannot be well evaluated due to lack of distention. IMPRESSION: 1. Mild bilateral hydronephrosis. Etiology uncertain. A CT scan would provide additional anatomic detail if needed. 2. Small left renal cyst
[2019-03-17 13:11] LABS: GLUCOSE 544 mg/dL (70-105)
--- NOTE | 2019-03-17 14:33 | History & Physical ---
ADMIT DATE: 03/17/2019 PATIENT'S IDENTIFICATION: A 78-year-old female. CHIEF COMPLAINT: Sent to Emergency Room for evaluation of uncontrolled blood sugar, elevated BUN and creatinine, altered mental status, and dark thick urine evaluation. HISTORY OF PRESENT ILLNESS: A 78-year-old resident of shelter, who has a diagnosis of diabetes, hypertension, dementia, atrial fibrillation, DJD, has been followed by myself and Dr. Valente at [facility] where the patient's staff noted that the patient's sugars were continues to remain elevated and follow up lab was revealed, elevated BUN and creatinine was significantly elevated and had a significant metabolic acidosis and noted to have thick dark urine. The patient was sent to Emergency Room and noted to have acute on chronic kidney disease with hyponatremia, complicated UTI, and metabolic acidosis. The patient was advised to be admitted. PAST MEDICAL HISTORY: Remarkable for: 1. Diabetes. 2. Hypertension. 3. Dementia. 4. DJD. 5. Psychotic disorder. 6. Atrial fibrillation. ALLERGIES: The patient is not allergic to medications. SOCIAL HISTORY: The patient resides in a shelter. No smoking or alcohol use. MEDICATIONS: At the time of transfer has been reviewed and reconciled appropriately. FAMILY MEDICAL HISTORY: Unavailable. REVIEW OF SYSTEMS: Unable to get meaningful history from the patient. PHYSICAL EXAMINATION: GENERAL: The patient is alert, awake, follows simple commands. VITAL SIGNS: Temperature 99, pulse is 100, respiratory rate 20, blood pressure 130/80. HEENT: Normocephalic, atraumatic. Extraocular muscles intact. Tongue was pink and coated. No facial asymmetry. No oral exudates. Poor dentition noted. NECK: Supple, no JVD. No hepatojugular reflex. No lymphadenopathy, thyromegaly, carotid bruit. HEART: Both heart sounds are irregularly irregular. Grade 2/6 systolic murmur noted. CHEST AND LUNGS: Equal in expansion, no expiratory wheezing. ABDOMEN: Soft. No guarding, no rigidity. Bowel sounds are present. No palpable mass. EXTREMITIES: No edema, no cyanosis. Peripheral pulses are +1. No calf tenderness. NEUROLOGIC: The patient is alert, awake, follows simple commands, unable to follow complex commands. Decreased power throughout the upper and lower extremity noted. AVAILABLE DIAGNOSTIC DATA: White count of 20,000, hemoglobin 9.8, platelet count of 325. Sodium 126, potassium 5.0, chloride 12.2, BUN and creatinine is 59 and 3.7, glucose of 554. CPK 332. BNP 109. Urinalysis remarkable for 500+ glucose, large blood, moderate leukocyte esterase, more than 100 WBC, +2 bacteria noted. Serum ketones are negative. Chest x-ray done in the Emergency Room, which was unremarkable for any infiltrate. CLINICAL IMPRESSIONS: 1. Altered mental status secondary to metabolic and infectious encephalopathy. 2. Hyponatremia secondary to volume depletion. 3. Acute on chronic kidney disease, most likely secondary to prerenal azotemia. 4. Diabetes mellitus, uncontrolled. 5. Complicated urinary tract infection. 6. Diabetes mellitus. 7. Hypertension. 8. Alzheimer dementia. 9. Degenerative joint disease. 10. High risk for fall. PLAN: 1. Admit this patient to telemetry unit. 2. IV fluid. 3. Sliding scale insulin. 4. IV antibiotic. 5. Appropriate home medicine reconciliation. 6. Nephrology and Infectious Disease consultation. 7. General nursing care. 8. Cardiac monitoring. 9. Follow lab. 10. Follow artist consultant recommendation. 11. Acute kidney injury workup. 12. Care plan reviewed and discussed with staff. JOB# [id number]
[2019-03-17] MEDS ORDERED: Menthol/Zinc Oxide Oint 113gm Tube TP PRN (14:35)
[2019-03-17 16:09] LABS: PaCO2 20.2 mmHg (35.0-45.0); PaO2 88.1 mmHg (80.0-100.0); sO2c 96.8 % (92.0-100.0)
--- NOTE | 2019-03-18 01:38 | Consultation ---
DATE OF CONSULTATION: 03/17/2019 REFERRING PHYSICIAN: Guru Cardona MD REASON FOR CONSULTATION: Urinary tract infection and sepsis. HISTORY OF PRESENT ILLNESS: The patient is 78-year-old female with a past medical history of dementia, hypertension, dysphagia, and peptic ulcer disease, brought in from facility for generalized weakness and cough. She also has some abnormal labs. On initial evaluation, the patient's temperature was 97.8 degree Fahrenheit and WBC count was 20,000 with neutrophil 88%. The patient's glucose was very high at 554 and bicarbonate is 12.2. Urinalysis showed large blood with leukoesterase moderate and more than 100 wbc's and 2+ bacteria. Creatinine was also 3.7. Antibiotic conway, the patient was started on Zosyn. ID consult was called for further antibiotic management. PAST MEDICAL HISTORY: Hypertension, dementia, peptic ulcer disease, and dyslipidemia. PAST PSYCHIATRIC HISTORY: Includes depression, schizophrenia, bipolar disorder, and dementia. FAMILY HISTORY: Hypertension. SOCIAL HISTORY: The patient lives at nursing facility, . The patient has no history of smoking, alcohol or drug use. FAMILY HISTORY: Unknown. REVIEW OF SYSTEMS: The patient is a poor historian, but the patient has no fever. GENERAL: The patient has no fever, no chills. HEENT: No diplopia, no photophobia, no sore throat. RESPIRATORY: No cough, no shortness of breath. CARDIOVASCULAR: No chest pain or palpitation. GASTROINTESTINAL: No nausea, no vomiting, no diarrhea, no constipation. GENITOURINARY: No dysuria. NEUROLOGIC: No headache, no dizziness, no focal weakness. PHYSICAL EXAMINATION: VITAL SIGNS: Shows temperature is 97.4 degrees Fahrenheit, pulse 70, respiration is 18, and blood pressure 119/41. GENERAL: The patient is comfortable lying in bed, in no acute distress. HEENT: Head is normocephalic and atraumatic. Oral cavity moist, pink tongue. Eyes: Pallor is present, no icterus. PERRLA. EOMI. NECK: Supple, no JVD, no bruit. Trachea in midline. CHEST: Bilateral breath sounds. No crackles or wheezing. HEART: S1, S2 within normal limits. Regular rhythm. No murmur, no gallop. ABDOMEN: Soft, nontender, and nondistended. Bowel sounds present. EXTREMITIES: No cyanosis, no clubbing, no edema. NEUROLOGICAL: Alert and awake, communicates well. Speech is clear, but slow. LABORATORY DATA: Current lab shows WBC count is 28,000, hemoglobin 9.9, hematocrit 30.3, platelets are 325,000, and neutrophils 88%. Sodium 126, potassium 5, chloride 100, bicarbonate is 12.2, BUN is 59, creatinine 3.7, glucose is 554. CPK is 332. BNP is 109. LFTs reviewed. Urinalysis shows yellow clear, hazy urine with large blood, leukoesterase moderate, WBC more than 100 and bacteria 2+. Serum ketones are negative. IMPRESSION: 1. Leukocytosis may have sepsis. 2. Urinary tract infection with bilateral hydronephrosis as mentioned in renal ultrasound. 3. May have neurogenic bladder. 4. Acute renal failure on chronic kidney disease. 5. Metabolic acidosis likely secondary to renal insufficiency. 6. Dehydration is a possibility. 7. History of hypertension. 8. Dyslipidemia. 9. Peptic ulcer disease. 10. Dementia. 11. Bipolar disorder. 12. Depression. 13. Anemia, unspecified. RECOMMENDATIONS: Continue Zosyn at this time. Follow up urine culture report and blood culture report. IV fluid support. Check CT scan of abdomen and pelvis to rule out any pyelonephritis. Thank you, Dr. Cardona for involving me in taking care of this patient. JOB# [id number]
[2019-03-18] MEDS: Sodium Chloride 0.9% 1,000 ML IV SCH ×2 (04:10→16:37)
[2019-03-18 05:31] LABS: HEMATOCRIT 25.3 % (41.0-60); HEMOGLOBIN 8.3 gm/dL (12-16); MEAN CELL VOLUME 79.6 fl (81-100); MEAN CORPUSCULAR HEMOGLOBIN 26.1 pg (27.0-31.0); MEAN CORPUSCULAR HGB CONC 32.8 pg (28.0-36.0); MEAN PLATELET VOLUME 5.5 fl; PLATELET COUNT 291 Th/cmm (150-400); RED BLOOD COUNT 3.18 Mil/cmm (3.80-5.20); RED CELL DISTRIBUTION WIDTH 13.4 % (11.5-20.0)
[2019-03-18 05:47] LABS: ALB/GLOB RATIO 0.7 (1.0-1.8); ALBUMIN 2.5 gm/dL (3.7-5.3); ALKALINE PHOSPHATASE 75 U/L (34-104); ANION GAP 15.1 (7.0-16.0); BILIRUBIN,TOTAL 0.3 mg/dL (0.3-1.0); BUN - UREA NITROGEN 46 mg/dL (7-25); CALCIUM SERUM 8.3 mg/dL (8.6-10.3); CARBON DIOXIDE 12.2 mEq/L (21.0-31.0); CHLORIDE 113 mEq/L (98-107); CREATININE - SERUM 2.4 mg/dL (0.6-1.2); GLUCOSE 176 mg/dL (70-105); MAGNESIUM 1.5 mg/dL (1.9-2.7); PHOSPHOROUS 3.5 mg/dL (2.5-5.0); POTASSIUM SERUM 4.3 mEq/L (3.5-5.1); SGOT 10 U/L (13-39); SGPT/ALT 8 U/L (7-52); SODIUM SERUM 136 mEq/L (136-145); TOTAL PROTEIN,SERUM 5.9 gm/dL (6.0-8.3)
[2019-03-18 07:13] LABS: BAND NEUTROPHILE 0 % (0-10); EOSINOPHIL 1 % (0-5); LYMPHOCYTE 7 % (20-50); MONOCYTE 6 % (2-10); NEUTROPHILS 86 % (40-80)
[2019-03-18] MEDS: INSULIN LISPRO SLIDING SCALE 100 UNITS/ML UNIT SUBQ SCH ×4 (08:19→21:29)
--- NOTE | 2019-03-18 09:15 | Diagnostic Imaging Report ---
Summation of the abdomen. HISTORY: Kidney injury Exam: None. Findings: Real-time ultrasound summation of the abdomen performed multiple planes. The study demonstrates normal echogenicity liver parenchyma. Patient has had previous cholecystectomy. The common bile duct measures 1 cm diameter which is not unusual for postcholecystectomy patient. Pancreas poorly seen. The right kidney measures 10.7 x 4.6 x 5.1 C diameter with mild hydronephrosis Left kidney measures 10.2 x 5.2 x 5 cm diameter with mild hydronephrosis. Small left upper renal pole cyst measuring 1.0 x 1.1 cm appreciated. The spleen is prominent. No free fluid is noted. 4 catheter in the bladder. IMPRESSION Bilateral mild hydronephrosis. Status post cholecystectomy.
--- NOTE | 2019-03-18 09:22 | Diagnostic Imaging Report ---
Exam: CT examination of the pelvis. HISTORY: Pyelonephritis. Total DLP equals 818 CTDI equals 2.4 Prior exam: None Findings: Multiple views of the section of the abdomen pelvis obtained from lower thorax to pubic symphysis without the demonstration contrast material The study somewhat limited due to motion artifacts The lung parenchyma is well aerated the bases. Mild congestion cannot be excluded The liver and spleen intact. There is evidence of bilateral hydronephrosis. Is evidence for mild inflammatory changes surround left kidney pyelonephritis cannot be excluded. The visualized pancreas is intact. Vascular calcifications noted. No free fluid visualized. Postsurgical changes the right colon appreciated. There is evidence for portable technique containing fat. There is evidence of diverticular disease, no evidence of diverticulitis. Urinary bladder contains Valdez catheter and air in the urinary bladder. IMPRESSION: Bilateral hydronephrosis. Question of left-sided pyelonephritis. Periumbilical hernia containing fat Post surgical changes right colon Diverticulosis, no evidence of diverticulitis.
[2019-03-18] MEDS: Multivitamin w/ Minerals Tab PO SCH (09:29)
[2019-03-18] MEDS ORDERED: Mag Sulfate 2gm/50mL Premix 2 GM/50 ML BAG IV ONE (09:53)
[2019-03-18] MEDS ORDERED: Sodium Bicarbonate 8.4% 50mEq PFS IVP ONE (11:08)
--- NOTE | 2019-03-18 11:43 | Consultation ---
DATE OF CONSULTATION: 03/18/2019 LOCATION: [facility], room #17, bed 2. ATTENDING PHYSICIAN: Dr. Cardona. HISTORY OF PRESENT ILLNESS: This is a 78-year-old female patient. The patient is conscious, but seems to be altered. The patient is a residence of senior living. The patient is a known case of dementia, hypertension, diabetes mellitus, DJD, atrial fibrillation. The patient was found to have uncontrolled diabetes mellitus, increased confusion, dark pink urine with possible UTI. The patient was evaluated in the Emergency Room, was found to have acute kidney failure. Renal consultation has been requested. The patient has been started on IV hydration. Valdez catheter now shows clearing of the urine. The patient is also receiving broad-spectrum antibiotic and the patient has been seen by Dr. Jed Wilkes. The patient's initial CAT scan of the abdomen was significant for hydronephrosis, but with Valdez catheter, the patient is making good amount of urine at this time. According to the nursing staff, the patient is eating by mouth, but patient is anorexic. The patient also has oliguria to start with, but now the patient is polyuric. No vomiting or diarrhea has been noted. No history of seizures. No history of loss of consciousness, no history of fall or trauma. No history of any cardiac arrhythmias. PAST MEDICAL AND SURGICAL HISTORY: As stated above, history of atrial fibrillation, DJD, psychotic disorder, hypertension, diabetes, dementia, possible CKD 2. SOCIAL HISTORY: No history of alcoholism or smoking. ALLERGIES: The patient does not have any allergies. The patient is a residence of senior living. PHYSICAL EXAMINATION: GENERAL: A 78-year-old female patient, conscious, lethargic. VITAL SIGNS: Temperature 97.6, pulse 72, blood pressure 129/36, respiration rate 17. Today's intake 2561, output 1700 through Valdez catheter. HEENT: Head: Normocephalic, atraumatic. Eyes: Sclerae is nonicteric. Conjunctivae are pale. Pupils reactive. NECK: Jugular venous pressure not distended. No lymphadenopathy. No neck stiffness. EAR, NOSE, THROAT: No bleeding or discharge. LUNGS: Good air entry at both sides. No rales or rhonchi. HEART: Regular, no rub or gallop. ABDOMEN: Soft, nontender. Bowel sounds are present. EXTREMITIES: No edema of the leg. LABORATORY DATA: WBC 15,000, hemoglobin 8.3, platelets 291,000. Sodium 136, potassium 4.3, chloride 113, CO2 12, BUN 46, creatinine 2.4, blood sugar of 176, calcium 8.3, phosphorus 3.5, magnesium 1.5. Urinalysis: Protein 100, glucose 500, nitrite negative, large blood, WBC more than 100. IMPRESSION: 1. Acute kidney injury. 2. Urinary tract infection. 3. Uncontrolled diabetes mellitus. 4. Hypertension. 5. Atrial fibrillation. 6. Acidosis 7. Hypernatremia. 8. Dementia. PLAN: Start the patient on IV sodium bicarbonate push. Increase IV hydration. Obtain kidney ultrasound or repeat urinalysis. Magnesium sulfate IV piggy. Repeat CMP, phosphorus, magnesium in the morning. The patient has been appropriately started on broad-spectrum antibiotic. We will continue the patient on amiodarone and Coreg. We will try to avoid the patient on any MADDY inhibitors or ARB at this time. Avoid any dye study or nephrotoxic medication. Discussed with nursing staff multiple times. I will follow this patient with you. I thank you very much, Dr. Cardona for allowing me to participate in the management of this patient. JOB# [id number]
[2019-03-18] MEDS: Sodium Bicarbonate 8.4% 50mEq PFS IVP SCH (20:28)
--- NOTE | 2019-03-19 02:35 | Progress Notes ---
DATE: 03/18/2019 SUBJECTIVE: The patient seen and examined. The patient is lying in the bed. The patient is more alert, awake. The patient did have CT scan of the abdomen and pelvis and ultrasound, which revealed mild hydronephrosis with pyelonephritis. The patient remained hemodynamically stable. PHYSICAL EXAMINATION: VITAL SIGNS: Temperature 97.6, pulse 72, respiratory rate 18, blood pressure 130/36. HEENT: No facial asymmetry. Poor dentition noted. NECK: Supple, no JVD. HEART: Regular. CHEST AND LUNGS: Equal in expansion with no expiratory wheezing. ABDOMEN: Soft. No guarding, no rigidity. Bowel sounds present. No palpable mass. EXTREMITIES: No edema. AVAILABLE DIAGNOSTIC DATA: White count of 15,000, hemoglobin 8.3, platelet count 291, BUN and creatinine of 46 and 2.4, bicarb of 12.2, magnesium 1.5. CLINICAL IMPRESSION: 1. Pyelonephritis. 2. Bilateral hydronephrosis. 3. Acute on chronic kidney injury. 4. Metabolic acidosis. 5. Leukocytosis. 6. Microcytic hypochromic anemia. 7. Chronic atrial fibrillation. 8. Diabetes mellitus. 9. Poor p.o. intake. 10. Electrolyte imbalance. 11. Decline in self-care, mobility. PLAN: 1. IV fluid. 2. IV antibiotic. 3. Urology consultation. 4. General nursing care. 5. Monitor blood sugar and blood pressure. 6. Follow lab. 7. Replace electrolytes. 8. Follow datastage consultant recommendation. 9. Care plan reviewed and discussed with staff. JOB# [id number]
[2019-03-19] MEDS: Sodium Chloride 0.9% 1,000 ML IV SCH (03:36)
[2019-03-19] MEDS: Sodium Bicarbonate 8.4% 50mEq PFS IVP SCH ×3 (05:13→21:09)
[2019-03-19 06:41] LABS: % BASOPHILS 0.9 % (0.0-2.0); % EOSINOPHILS 0.9 % (0.0-5.0); % LYMPHOCYTES 10.7 % (20.0-50.0); % MONOCYTES 7.6 % (2.0-10.0); % NEUTROPHILS 79.9 % (40.0-80.0); BASOPHILE ABSOLUTE 0.1 Th/cumm (0-0.2); EOSINOPHILE ABSOLUTE 0.1 Th/cmm (0.1-0.4); HEMATOCRIT 21.8 % (41.0-60); LYMPHOCYTE ABSOLUTE 1.1 Th/cmm (1.5-3.0); MEAN CELL VOLUME 78.8 fl (81-100); MEAN CORPUSCULAR HEMOGLOBIN 26.7 pg (27.0-31.0); MEAN CORPUSCULAR HGB CONC 33.9 pg (28.0-36.0); MEAN PLATELET VOLUME 5.4 fl; MONOCYTE ABSOLUTE 0.8 Th/cmm (0.3-1.0); NEUTROPHILE ABSOLUTE 8.3 Th/cmm (1.8-8.0); PLATELET COUNT 257 Th/cmm (150-400); RED BLOOD COUNT 2.76 Mil/cmm (3.80-5.20); RED CELL DISTRIBUTION WIDTH 13.4 % (11.5-20.0); WHITE BLOOD COUNT 10.4 Th/cmm (4.8-10.8)
[2019-03-19] MEDS: INSULIN LISPRO SLIDING SCALE 100 UNITS/ML UNIT SUBQ SCH ×4 (06:50→21:49)
[2019-03-19 06:56] LABS: ALB/GLOB RATIO 0.7 (1.0-1.8); ALBUMIN 2.3 gm/dL (3.7-5.3); ALKALINE PHOSPHATASE 60 U/L (34-104); ANION GAP 14.3 (7.0-16.0); BILIRUBIN,TOTAL 0.3 mg/dL (0.3-1.0); BUN - UREA NITROGEN 34 mg/dL (7-25); CALCIUM SERUM 7.9 mg/dL (8.6-10.3); CARBON DIOXIDE 20.7 mEq/L (21.0-31.0); CHLORIDE 113 mEq/L (98-107); GLUCOSE 147 mg/dL (70-105); MAGNESIUM 1.7 mg/dL (1.9-2.7); PHOSPHOROUS 2.9 mg/dL (2.5-5.0); SGOT 8 U/L (13-39); SGPT/ALT 6 U/L (7-52); SODIUM SERUM 144 mEq/L (136-145); TOTAL PROTEIN,SERUM 5.4 gm/dL (6.0-8.3)
[2019-03-19 07:01] LABS: HEMOGLOBIN 7.4 gm/dL (12-16)
[2019-03-19] MEDS: Multivitamin w/ Minerals Tab PO SCH (08:28)
[2019-03-19] MEDS ORDERED: Mag Sulfate 2gm/50mL Premix 2 GM/50 ML BAG IV ONE (10:10)
--- NOTE | 2019-03-19 12:02 | Infectious Disease Prog Note ---
Infectious Disease Subjective - Review of Systems Service Date: 03/19/19 Subjective: There is no new change. no fever/ Infectious Disease Objective - Results Result Diagrams: 03/19/19 05:55 03/19/19 05:55 Recent Labs: Laboratory Last Values WBC 10.4 Th/cmm (4.8-10.8) 03/19/19 05:55 RBC 2.76 Mil/cmm (3.80-5.20) L 03/19/19 05:55 Hgb 7.4 gm/dL (12-16) L* 03/19/19 05:55 Hct 21.8 % (41.0-60) L 03/19/19 05:55 MCV 78.8 fl (81-100) L 03/19/19 05:55 MCH 26.7 pg (27.0-31.0) L 03/19/19 05:55 MCHC Differential 33.9 pg (28.0-36.0) 03/19/19 05:55 RDW 13.4 % (11.5-20.0) 03/19/19 05:55 Plt Count 257 Th/cmm (150-400) 03/19/19 05:55 MPV 5.4 fl 03/19/19 05:55 Add Manual Diff YES 03/18/19 05:20 Neutrophils % 79.9 % (40.0-80.0) 03/19/19 05:55 Band Neutrophils % 0 % (0-10) 03/18/19 05:20 Lymphocytes % 10.7 % (20.0-50.0) L 03/19/19 05:55 Monocytes % 7.6 % (2.0-10.0) 03/19/19 05:55 Eosinophils % 0.9 % (0.0-5.0) 03/19/19 05:55 Basophils % 0.9 % (0.0-2.0) 03/19/19 05:55 Neutrophils (Manual) 86 % (40-80) H 03/18/19 05:20 Lymphocytes 7 % (20-50) L 03/18/19 05:20 Monocytes 6 % (2-10) 03/18/19 05:20 Eosinophils 1 % (0-5) 03/18/19 05:20 Microcytosis 1+ 03/18/19 05:20 PT 10.2 SECONDS (9.5-11.5) 03/16/19 14:40 INR 0.98 (0.5-1.4) 03/16/19 14:40 Specimen Source art 03/17/19 13:54 Sample Site RB 03/17/19 13:54 pH 7.370 (7.35-7.45) 03/17/19 13:54 pCO2 20.2 mmHg (35.0-45.0) L* 03/17/19 13:54 pO2 88.1 mmHg (80.0-100.0) 03/17/19 13:54 HCO3 11.5 mEq/L (20.0-26.0) L 03/17/19 13:54 Base Excess -11.0 mEq/L (-3.0-3.0) L 03/17/19 13:54 O2 Saturation 96.8 % (92.0-100.0) 03/17/19 13:54 Navin Test na 03/17/19 13:54 Vent Rate na 03/17/19 13:54 Inspired O2 21 03/17/19 13:54 Tidal Volume na 03/17/19 13:54 PEEP na 03/17/19 13:54 Pressure (ins/psv/peep) na 03/17/19 13:54 Critical Value RNinofranco 03/17/19 13:54 Sodium 144 mEq/L (136-145) 03/19/19 05:55 Potassium 4.0 mEq/L (3.5-5.1) 03/19/19 05:55 Chloride 113 mEq/L (98-107) H 03/19/19 05:55 Carbon Dioxide 20.7 mEq/L (21.0-31.0) L 03/19/19 05:55 Anion Gap 14.3 (7.0-16.0) 03/19/19 05:55 BUN 34 mg/dL (7-25) H 03/19/19 05:55 Creatinine 2.0 mg/dL (0.6-1.2) H 03/19/19 05:55 Est GFR ( Amer) TNP 03/19/19 05:55 Est GFR (Non-Af Amer) TNP 03/19/19 05:55 BUN/Creatinine Ratio 17.0 03/19/19 05:55 Glucose 147 mg/dL (70-105) H 03/19/19 05:55 POC Glucose 230 MG/DL (70 - 105) H 03/19/19 11:27 Whole Bld Lactic Acid 1.53 mmol/L (0.60-1.99) 03/16/19 14:40 Calcium 7.9 mg/dL (8.6-10.3) L 03/19/19 05:55 Phosphorus 2.9 mg/dL (2.5-5.0) 03/19/19 05:55 Magnesium 1.7 mg/dL (1.9-2.7) L 03/19/19 05:55 Total Bilirubin 0.3 mg/dL (0.3-1.0) 03/19/19 05:55 AST 8 U/L (13-39) L 03/19/19 05:55 ALT 6 U/L (7-52) L 03/19/19 05:55 Alkaline Phosphatase 60 U/L (34-104) 03/19/19 05:55 Creatine Kinase 332 U/L (30-223) H 03/16/19 14:40 CK-MB (CK-2) 5.2 ng/mL (0.6-6.3) 03/16/19 14:40 Troponin I 0.02 ng/mL (0.01-0.05) 03/16/19 14:40 B-Natriuretic Peptide 109.0 pg/mL (5.0-100.0) H 03/16/19 14:40 Total Protein 5.4 gm/dL (6.0-8.3) L 03/19/19 05:55 Albumin 2.3 gm/dL (3.7-5.3) L 03/19/19 05:55 Globulin 3.1 gm/dL 03/19/19 05:55 Albumin/Globulin Ratio 0.7 (1.0-1.8) L 03/19/19 05:55 Triglycerides 75 mg/dL (<150) 03/16/19 14:40 Cholesterol 110 mg/dL (<200) 03/16/19 14:40 LDL Cholesterol Direct 44 mg/dL (75-193) L 03/16/19 14:40 HDL Cholesterol 49 mg/dL (23-92) 03/16/19 14:40 Amylase 42 U/L (29-103) 03/16/19 14:40 Lipase 39 U/L (11-82) 03/16/19 14:40 TSH 1.84 uIU/ml (0.34-5.60) 03/18/19 05:20 Urine Source CLEAN C 03/16/19 16:50 Urine Color YELLOW 03/16/19 16:50 Urine Clarity HAZY (CLEAR) 03/16/19 16:50 Urine pH 5.5 (4.6 - 8.0) 03/16/19 16:50 Ur Specific [place] 1.020 (1.005-1.030) 03/16/19 16:50 Urine Protein 100 mg/dL (NEGATIVE) H 03/16/19 16:50 Urine Glucose (UA) 500 mg/dL (NEGATIVE) H 03/16/19 16:50 Urine Ketones NEGATIVE mg/dL (NEGATIVE) 03/16/19 16:50 Urine Blood LARGE (NEGATIVE) H 03/16/19 16:50 Urine Nitrate NEGATIVE (NEGATIVE) 03/16/19 16:50 Urine Bilirubin NEGATIVE (NEGATIVE) 03/16/19 16:50 Urine Urobilinogen 0.2 E.U./dL (0.2 - 1.0) 03/16/19 16:50 Ur Leukocyte Esterase MODERATE (NEGATIVE) H 03/16/19 16:50 Urine RBC 0-2 /hpf (0-5) 03/16/19 16:50 Urine WBC >100 /hpf (0-5) H 03/16/19 16:50 Ur Epithelial Cells RARE /lpf (FEW) 03/16/19 16:50 Urine Bacteria 2+ /hpf (NONE SEEN) H 03/16/19 16:50 Serum Ketones NEGATIVE (NEGATIVE) 03/16/19 15:30 - Physical Exam Vitals and I&O: Vital Signs Temp 98.5 F 03/19/19 11:29 Pulse 67 03/19/19 11:29 Resp 18 03/19/19 11:29 BP 122/86 03/19/19 11:29 Pulse Ox 98 03/19/19 11:29 Intake & Output 03/18/19 03/19/19 03/19/19 18:59 06:59 18:59 Intake Total 1750 1050 Output Total 1200 1000 Balance 550 50 Weight (lbs) 65.771 kg 65.771 kg Intake: Intake, IV Amount 1050 1050 Piperacillin Sodium/ 50 50 Tazobact 2.25 gm In Sodium Chloride 0.9% 50 ml @ 100 mls/hr IV Q8HR [facility] Rx#:[id number] Sodium Chloride 0.9% 1, 1000 1000 000 ml @ 100 mls/hr IV . Q10H [facility] Rx#:[id number] Oral 700 Output: Urine 1200 1000 Other: # Bowel Movements 2 Stool Characteristics Soft Soft Formed Formed Liquid Liquid Brown Brown Green Green Weight Source Bedscale Bedscale Active Medications: Current Medications Acetaminophen (Tylenol) 650 mg PO Q6H PRN PRN Reason: Mild Pain/Headache/T above 101 Stop: 05/15/19 20:08 Last Admin: 03/18/19 19:40 Dose: 650 mg Amiodarone HCl (Cordarone) 100 mg PO DAILY [facility] Stop: 05/15/19 20:29 Last Admin: 03/19/19 08:29 Dose: 100 mg Aripiprazole (Abilify) 5 mg PO DAILY [facility]; Protocol Stop: 05/15/19 20:29 Last Admin: 03/19/19 08:28 Dose: 5 mg Calamine/Phenol (Calmoseptine) 1 appl TP QID PRN PRN Reason: Skin Irritation Stop: 05/16/19 14:34 Last Admin: 03/17/19 17:48 Dose: 1 appl Carvedilol (Coreg) 6.25 mg PO BID [facility] Stop: 05/15/19 20:29 Last Admin: 03/19/19 08:29 Dose: 6.25 mg Docusate Sodium (Colace) 100 mg PO BID [facility] Stop: 05/16/19 08:59 Last Admin: 03/19/19 08:28 Dose: 100 mg Donepezil HCl (Aricept) 10 mg PO HS [facility] Stop: 05/15/19 20:59 Last Admin: 03/18/19 20:28 Dose: 10 mg Piperacillin Sod/Tazobactam (Sod 2.25 gm/ Sodium Chloride) 50 mls @ 100 mls/hr IV Q8HR [facility] Stop: 05/15/19 20:59 Last Admin: 03/19/19 05:12 Dose: 100 mls/hr Sodium Chloride (Nacl 0.9%) 1,000 mls @ 100 mls/hr IV .Q10H [facility] Stop: 05/16/19 18:14 Last Admin: 03/19/19 03:36 Dose: 100 mls/hr Magnesium Sulfate (Magnesium Sulfate Premix) 2 gm in 50 mls @ 25 mls/hr IV X1 ONE Stop: 03/19/19 12:09 Last Admin: 03/19/19 10:50 Dose: 25 mls/hr Insulin Human Lispro (Humalog Insulin Sliding Scale) 0 units SUBQ ACHS [facility]; Protocol Stop: 06/01/19 00:00 Last Admin: 03/19/19 06:50 Dose: Not Given Memantine (Namenda) 10 mg PO BID [facility] Stop: 05/16/19 08:59 Last Admin: 03/19/19 08:28 Dose: 10 mg Ondansetron HCl (Zofran) 4 mg IVP Q6H PRN PRN Reason: Nausea / Vomiting Stop: 05/15/19 20:08 Sodium Bicarbonate (Sodium Bicarb) 50 meq IVP Q8HR [facility] Stop: 03/23/19 19:59 Last Admin: 03/19/19 05:13 Dose: 50 meq Zolpidem Tartrate (Ambien) 5 mg PO HS PRN PRN Reason: Insomnia Stop: 05/15/19 20:08 General: no acute distress, well developed, well nourished HEENT: atraumatic, normocephalic, PERRLA, EOMI Neck: supple, no thyromegaly Cardiovascular: S1S2, regular Lungs: clear to auscultation bilaterally, clear to percussion Abdomen: soft, no tender, no distended, no mass Extremities: no cyanosis, no clubbing, no edema Neurological: awake, alert, oriented Skin: intact - Procedures Procedures: Procedures Procedure Code Date GROUP PSYCHOTHERAPY 07253 02/29/16 GROUP PSYCHOTHERAPY [id number] 02/29/16 OTHER GROUP THERAPY 94.44 03/25/15 Infectious Disease Assmt/Plan - Assessment Assessment: 1. Leukocytosis may have sepsis. 2. Urinary tract infection with bilateral hydronephrosis as mentioned in renal ultrasound. 3. May have neurogenic bladder. 4. Acute renal failure on chronic kidney disease. 5. Metabolic acidosis likely secondary to renal insufficiency. 6. Dehydration is a possibility. 7. History of hypertension. 8. Dyslipidemia. 9. Peptic ulcer disease. 10. Dementia. 11. Bipolar disorder. 12. Depression. 13. Anemia, unspecified. - Plan Plan: Conintue Zosyn 2.25 G IV q8. Urology consult requested. Nutritional Asmnt/Malnutr-PDOC - Dietary Evaluation Malnutrition Findings (Please click <Entered> for more info): Nutritional Asmnt/Malnutrition Start: 03/17/19 11: 13 Text: Status: Complete Freq: Protocol: Document 03/17/19 11:14 MADIG (Rec: 03/17/19 11:24 [email or web address] [id number]) Nutritional Asmnt/Malnutrition Patient General Information Nutritional Screening High Risk Consult Diagnosis UTI, TANG, DM Pertinent Medical Hx/Surgical Hx HTN, dyslipidemia, PUD/GERD, dementia, depression, schizophrenia, bipolar Subjective Information Consult received for admitting blood glucose 544. Per EMR, PO consumed 75% of breakfast this morning. Pt seen sleeping in bed at time of visit, not able to obtain nutrition infomation and provide diabetic education at this time. RN reported pt consumed 75% of breakfast this morning by herself and pt is alert. Current Diet Order/ Nutrition Support CCHO Pertinent Medications colace, humalog, piperacillin, Nacl 0.9% Pertinent Labs 03/17 POC 162 03/16 Na 126, BUN 59, Cr 3.7, Glucose 544, POC 186, alb 3.1 Nutritional Hx/Data Height 1.65 m Height (Calculated Centimeters) 165.1 Current Weight (lbs) 64.864 kg Weight (Calculated Kilograms) 64.9 Weight (Calculated Grams) 01425.7 [place] Body Weight 125 Body Mass Index (BMI) 23.8 Weight Status Approriate GI Symptoms GI Symptoms None Last BM not indicated Difficult in: None Skin Integrity/Comment: pressure area to buttocks, farzana 13 Current %PO Good (75-100%) Estimated Nutritional Goals BEE in Kcals: Using Current wt Calories/Kcals/Kg 25-30 Kcals Calculated 1823-3766 Protein: Using Current wt Protein g/k-1.2 Protein Calculated 68-82 Fluid: ml 1700-2040ml (1ml/kcal) Nutritional Problem 1. Problem Problem altered nutrition related labs Etiology hyperglycemia, renal dysfunction Signs/Symptoms: BUN 59, Cr 3.7, Glucose 544, POC 186 Malnutrition Alert Is there a minimum of two criteria No selected? Query Text:Check all the applicable criteria. A minimum of two criteria are recommended for diagnosis of either severe or non-severe malnutrition. Malnutrition Related to Morbid Obesity Malnutrition related to morbid obesity No Intervention/Recommendation Comments 1. [facility] with [facility] diet as ordered. 2. Monitor PO intake, wt, labs and skin integrity 3. F/U as moderate risk in 3-5 days Expected Outcomes/Goals Expected Outcomes/Goals 1. PO intake to meet at least 75% of nutritional needs. 2. Wt stability, skin to remain intact, labs to approach WNL.
--- NOTE | 2019-03-19 16:05 | Consultation ---
DATE OF CONSULTATION: UROLOGY CONSULTATION REASON FOR CONSULTATION: Seen for bilateral hydronephrosis and urinary tract infection. HISTORY OF PRESENT ILLNESS: The patient was seen in the Emergency Room, transferred from a alf for weakness and some cough and maybe lower abdominal discomfort. She is unable to provide much history, but tells me she voids on her own without a catheter in a diaper and has not had infections that she can remember or any urologic surgery. We know that she came in without a catheter and this was placed in the Emergency Room here. There is no documentation of the amount of urine drained. Since then, she is found to have urinary tract infection as well and is being treated with broad spectrum antibiotics. MEDICAL HISTORY: States she has hypertension and hyperlipidemia. She also has peptic ulcer disease with GERD. She has dementia, but not very severe and is able to communicate to some extent. SOCIAL HISTORY: She lives in an assisted living or alf type facility, is and has no history of drug, tobacco or alcohol use. PSYCHIATRIC HISTORY: Reveals she has schizophrenia and bipolar disorder as well, but I am not sure if this is very accurate. SURGICAL HISTORY: Unknown. REVIEW OF SYSTEMS: No fever, chills or weight loss documented. No skin or joint problems, headache or seizures. No vision or hearing loss of late and no chest pain, coughing or shortness of breath. There was some dry cough, but no significant shortness of breath or wheezing. Denied nausea or vomiting or diarrhea. Admitted to lower abdominal discomfort. No urinary complaints. No vaginal discharge. PHYSICAL EXAMINATION: GENERAL: She is awake and alert. She is able to eat her food by herself. VITAL SIGNS: Temperature 98.5, heart rate 67, blood pressure 122/86, T-max 101.6 yesterday, before that 100.4 as well after admission. HEAD AND NECK: Normocephalic. Trachea is central. Pupils equal and reactive. No jaundice. Thyroid and lymph nodes not palpable. Carotid bruit absent. CHEST: Symmetrical. LUNGS: Coarse breath sounds with some rales and occasional rhonchi. HEART: Sounds normal, in sinus rhythm, no murmur. ABDOMEN: Soft, nontender. No organomegaly, mass or hernia. No distention. A Valdez catheter draining clear urine. EXTREMITIES: No edema or lymphadenopathy. NEUROLOGIC: Nonfocal. Moves all 4 limbs. Higher functions compromised. LABORATORY DATA: White count 10.4, down from 20,000 on admission; hemoglobin 7.4, down from 9.8 on admission. Platelets are adequate. PT/INR is normal and chemistries reveal chloride 113, CO2 of 20.7, BUN 34, and creatinine 2.0 compared to 3.7 on admission. Glucose was 554 on admission, now down to 230 and 142. Liver functions unremarkable. Urinalysis, large amount of blood and white cells and bacteria. Culture is growing group B beta streptococcus. Blood cultures are negative. CT scan of the abdomen and pelvis showed bilateral hydronephrosis, one side is less than the other. They have not described that and the question of left-sided hydronephrosis is also mentioned. Chest x-ray showed no acute changes. A renal ultrasound showed mild bilateral hydronephrosis with a small left renal cyst. IMPRESSION: Urinary tract infection, most likely from urinary retention secondary to bedbound status and neurogenic bladder, probably from her diabetes, although she has never been labeled as having diabetes or treated for it. There is also a component of medications that can cause anticholinergic effect causing neurogenic bladder. HOME MEDICATIONS: Reviewed show she was taking melatonin and vitamins, amiodarone, Abilify, Coreg, Colace, Aricept, Pepcid, milk of magnesia and Namenda. ALLERGIES: She has no allergies. PLAN: Recommend indwelling Valdez to be irrigated every day with 250 mL of normal saline for local bladder infection control, followed by maintenance of hygiene around the catheter to keep it infection free from stool contamination and to change it at least every 3 weeks. She should have this for a usp to prevent recurrent problems with retention, infection and hydronephrosis. History of hypertension, controlled well. History of dementia, possibly schizophrenia, details unknown. Bilateral hydronephrosis related to urinary retention as there are no stones or any specific explanation for the obstruction. JOB# [id number]
--- NOTE | 2019-03-19 23:08 | Progress Notes ---
DATE: 03/19/2019 IDENTIFICATION: A 78-year-old female. SUBJECTIVE: The patient seen and examined. The patient is lying in the bed. The patient is very comfortable. The patient denies any chest pain, shortness of breath, palpitation, dizziness, nausea, vomiting. PHYSICAL EXAMINATION: VITAL SIGNS: Temperature 97.8, pulse 70, respiratory rate 18 and blood pressure 133/55. HEENT: No facial asymmetry. Poor dentition noted. NECK: Supple, no JVD. HEART: Both heart sounds are regular. CHEST AND LUNGS: Equal in expansion. No expiratory wheezing. ABDOMEN: Soft. No guarding, no rigidity. Bowel sounds present. No palpable mass. EXTREMITIES: No edema. AVAILABLE DIAGNOSTIC DATA: White count of 8.4, hemoglobin 7.4, platelet count of 257, BUN and creatinine is 34 and 2.0, albumin of 2.3 and magnesium 1.7. CLINICAL IMPRESSION: 1. Microcytic hypochromic anemia without any acute bleeding. The patient's baseline hemoglobin on day of admission was 9.8. After aggressive IV hydration, hemoglobin has dropped to 7.4. I do suspect this could be her baseline hemoglobin. 2. Electrolyte imbalance. 3. Acute kidney injury. 4. Chronic kidney disease, III. 5. Diabetes mellitus. 6. Protein-calorie malnutrition. 7. Cardiac arrhythmia. 8. Psychotic disorder. PLAN: 1. In the view of her hemoglobin of 7.4, I will transfuse 2 units of packed red blood cells. 2. Correct electrolytes. 3. Continue nutrition. 4. IV fluid. 5. IV antibiotic. 6. General nursing care. 7. Follow lab. 8. Follow automotive internet sales consultant recommendation. 9. Care plan reviewed and discussed with staff. JOB# [id number]
[2019-03-20] MEDS: Sodium Chloride 0.9% 1,000 ML IV SCH (04:14)
[2019-03-20] MEDS: Sodium Bicarbonate 8.4% 50mEq PFS IVP SCH ×2 (04:16→12:01)
--- NOTE | 2019-03-20 06:09 | Progress Notes ---
DATE: LOCATION: [facility], room #17, bed B. SUBJECTIVE: The patient seems to be more alert. The patient is eating food, tolerating well. No vomiting or diarrhea. The patient is receiving packed RBCs. No complaint of shortness of breath. Yesterday's intake 2611 and urine output 1700 mL. OBJECTIVE: VITAL SIGNS: Temperature 99.0, pulse 72, blood pressure 135/59, and respirations 18. HEART: Regular. LUNGS: Good air entry. ABDOMEN: Soft. EXTREMITIES: No edema. LABORATORY DATA: WBC 15,000 and hemoglobin 8.3. Sodium 144, potassium 4, chloride 113, CO2 20.7, BUN improved to 34, creatinine improved to 2.0, calcium 7.9, phosphorus 2.9, magnesium 1.7, albumin 2.3, and blood sugar 190. ASSESSMENT: 1. Acute kidney injury, improving. 2. Anemia. The patient is receiving packed RBC. 3. Urinary tract infection. 4. Hypertension, stable. 5. Atrial fibrillation. 6. Diabetes mellitus. 7. Hypernatremia, improving. PLAN: Continue current treatment. Continue packed RBC. Start the patient on magnesium by mouth. Check a BMP and magnesium in 2 days. JOB# [id number]
[2019-03-20 06:29] LABS: % BASOPHILS 0.7 % (0.0-2.0); % EOSINOPHILS 1.6 % (0.0-5.0); % LYMPHOCYTES 10.2 % (20.0-50.0); % MONOCYTES 6.5 % (2.0-10.0); BASOPHILE ABSOLUTE 0.1 Th/cumm (0-0.2); EOSINOPHILE ABSOLUTE 0.2 Th/cmm (0.1-0.4); HEMATOCRIT 28.8 % (41.0-60); HEMOGLOBIN 9.6 gm/dL (12-16); MEAN CELL VOLUME 80.9 fl (81-100); MEAN CORPUSCULAR HEMOGLOBIN 27.1 pg (27.0-31.0); MEAN CORPUSCULAR HGB CONC 33.5 pg (28.0-36.0); MEAN PLATELET VOLUME 5.8 fl; MONOCYTE ABSOLUTE 0.6 Th/cmm (0.3-1.0); NEUTROPHILE ABSOLUTE 8.1 Th/cmm (1.8-8.0); PLATELET COUNT 223 Th/cmm (150-400); RED BLOOD COUNT 3.56 Mil/cmm (3.80-5.20); RED CELL DISTRIBUTION WIDTH 14.5 % (11.5-20.0)
[2019-03-20 06:53] LABS: ALB/GLOB RATIO 0.8 (1.0-1.8); ALBUMIN 2.4 gm/dL (3.7-5.3); ALKALINE PHOSPHATASE 74 U/L (34-104); ANION GAP 13.9 (7.0-16.0); BILIRUBIN,TOTAL 0.6 mg/dL (0.3-1.0); BUN - UREA NITROGEN 25 mg/dL (7-25); CALCIUM SERUM 7.6 mg/dL (8.6-10.3); CARBON DIOXIDE 23.8 mEq/L (21.0-31.0); CHLORIDE 109 mEq/L (98-107); CREATININE - SERUM 1.6 mg/dL (0.6-1.2); GLUCOSE 225 mg/dL (70-105); MAGNESIUM 1.8 mg/dL (1.9-2.7); POTASSIUM SERUM 3.7 mEq/L (3.5-5.1); SGOT 11 U/L (13-39); SGPT/ALT 8 U/L (7-52); SODIUM SERUM 143 mEq/L (136-145); TOTAL PROTEIN,SERUM 5.3 gm/dL (6.0-8.3)
[2019-03-20] MEDS: INSULIN LISPRO SLIDING SCALE 100 UNITS/ML UNIT SUBQ SCH ×2 (07:47→11:11)
[2019-03-20 08:09] LABS: IRON LC 9 ug/dL (27-139); TIBC (LC) 96 ug/dL (250-450); UIBC 87 ug/dL (118-369)
[2019-03-20] MEDS: Multivitamin w/ Minerals Tab PO SCH (08:28)
--- NOTE | 2019-03-20 20:29 | Discharge Summary ---
DATE OF DISCHARGE: 03/20/2019 Discharged to [facility]. PRINCIPAL DIAGNOSES: 1. Altered mental status secondary to encephalopathy, most likely metabolic and infectious. 2. Metabolic acidosis, anion gap secondary to renal failure and sepsis. 3. Acute kidney injury. 4. Electrolyte imbalance. 5. Complicated urinary tract infection. 6. Pyelonephritis. 7. Mild hydronephrosis. 8. Diabetes mellitus out of control. 9. Alzheimer dementia. 10. Chronic atrial fibrillation. 11. Hypertension. 12. Degenerative joint disease. 13. Debility. BRIEF STATEMENT FOR THE REASON FOR ADMISSION: The patient is a resident of [facility] where I follow her along with psychiatrist, brought into the Emergency Room after the patient was noted to have altered mental status with abnormal labs including worsening renal failure, metabolic acidosis. The patient was evaluated by Emergency Room MD, and subsequently admitted to the hospital for further treatment. Please refer to my dictated H and P for further information. HOSPITAL COURSE: The patient was admitted to telemetry unit where the patient was given oxygen along with IV antibiotic and appropriate home medicine was reconciled. Infectious Disease and Nephrology consultation was requested. Electrolytes were corrected as well. Blood cultures were unremarkable, but urine culture was positive. The patient did have further workup, which included CT scan of the abdomen, pelvis, and renal ultrasound, which revealed mild hydronephrosis and pyelonephritis. The patient was seen by urologist as well. The patient did have enough adequate urine output with aggressive IV hydration with correction of electrolyte. Once the patient was improving with the treatment plan, her creatinine came down to 1.6, and blood sugar was in the 200 range. A decision was made that the patient can receive further care at [facility], so the patient is discharged home in stable condition. The patient will be seen by myself and my nurse practitioner in the [facility] and the patient will complete the course of her IV antibiotics. The patient will have followup ultrasound in order to assess for renal function, hydronephrosis and pyelonephritis. At the time of discharge, all of her medications were reconciled. JOB# [id number]
--- NOTE | 2019-03-21 06:37 | Progress Notes ---
DATE: 03/20/2019 PATIENT'S IDENTIFICATION: A 78-year-old female. SUBJECTIVE: The patient is seen and examined. The patient is lying in the bed. The patient's creatinine is 1.6. The patient is tolerating p.o. well. Blood sugars are acceptable range. The patient has no new complaint. PHYSICAL EXAMINATION: VITAL SIGNS: See nurse's note. HEENT: No facial asymmetry. NECK: Supple, no JVD. HEART: Irregularly irregular. CHEST AND LUNGS: Equal in expansion with no expiratory wheezing. ABDOMEN: Soft. No guarding. No rigidity. Bowel sounds are present. No palpable mass. EXTREMITIES: No edema. AVAILABLE DIAGNOSTIC DATA: Has been reviewed. CLINICAL IMPRESSIONS: 1. Acute kidney injury, resolved. 2. Chronic kidney disease stage III. 3. Diabetes mellitus, uncontrolled, now better controlled, suspect secondary to infection. 4. Diabetes mellitus. 5. Hypertension. 6. Chronic atrial fibrillation. 7. Mild hydronephrosis. 8. Pyelonephritis. 9. Degenerative joint disease. 10. Dementia. 11. Decline in self-care and mobility. PLAN: Since the patient has been doing fairly well, we will discharge this patient to intermediate, keep IV antibiotic in intermediate for a total of 10 days. The patient will be placed on her home medicine as the patient was receiving since the patient is eating fairly well at the intermediate. The patient will be followed by me in a intermediate and we will do the followup renal ultrasound in order to assess the pyelonephritis and hydronephrosis. Continue current treatment plan as prescribed. Discharge plan discussed with staff. JOB# [id number]
--- NOTE | 2019-03-21 10:05 | Progress Notes ---
DATE: UROLOGY PROGRESS NOTE SUBJECTIVE: The patient is doing better; urine has cleared up well with daily irrigations. However, she does have low-grade temperatures off and on. PHYSICAL EXAMINATION: VITAL SIGNS: Temperature 97.5, heart rate 61, blood pressure 151/57; she went up to 100.3 last night or early interventionist. ABDOMEN: Soft, nontender, nondistended. Valdez catheter, no blood. EXTREMITIES: No edema with some contractures. LABORATORY DATA: White count 10.0, hemoglobin 9.6 after 2 units of blood transfusions yesterday. Sodium and potassium normal, chloride 109, BUN 25, creatinine 1.6, lowest it has been since admission. Urine culture had grown group B beta streptococcus, which may or may not be a true pathogen. Blood cultures were negative. IMPRESSION: 1. Bilateral hydronephrosis, mild to moderate on one side, probably secondary to chronic retention. She requires long-term Valdez. This should be changed every 3 weeks and irrigated every day to every 2 days with 250 mL of normal saline. Once again explained and documented the recommendations with the nurses. This should be followed through in the facility where she goes to. 2. Neurogenic bladder leading to chronic retention. 3. Urinary tract infection, probably local, improved with empirical antibiotics namely Zosyn and with local bladder irrigation. 4. Dementia, no change. 5. History of hypertension, stable. [facility]# [id number]
--- NOTE | 2019-03-21 10:55 | Progress Notes ---
DATE: 03/20/2019 LOCATION: [facility], room 17, bed B. SUBJECTIVE: The patient seems to be comfortable and alert, not in any acute distress, tolerating food well. No diarrhea or vomiting noted. OBJECTIVE: VITAL SIGNS: Pulse 69, blood pressure 151/51, respiratory rate 19. Yesterday's intake 2850, urine output 2200. HEART: Regular. LUNGS: Good air entry. ABDOMEN: Soft. EXTREMITIES: No edema. LABORATORY DATA: Hemoglobin 9.6, WBC 10. Creatinine improved to 1.6. Sodium, potassium, bicarbonate, BUN normal. Calcium 7.6. ASSESSMENT: 1. Acute kidney injury, improving. 2. Anemia, chronic. 3. Urinary tract infection, improving. 4. Hypertension, stable. PLAN: Continue current treatment. The patient's renal status has improved significantly with normal electrolyte. I will sign off this case. Please call me jennifer JOB# [id number]
== END 2019-03-20 16:00 | DRG 871 ==
LOC: ER 13:53 → TELE 19:45
PROVIDERS: ADMIT Internal Medicine; ATTEND Internal Medicine
PROC: 30233N1 Transfusion of Nonautologous Red Blood Cells into Peripheral Vein, Percutaneous Approach (ICD-10-PCS; principal; 2019-03-19)
DX: A41.9 Sepsis, unspecified organism (principal); G93.41 Metabolic encephalopathy; J18.9 Pneumonia, unspecified organism; N17.9 Acute kidney failure, unspecified; J44.0 Chronic obstructive pulmonary disease with (acute) lower respiratory infection; N13.6 Pyonephrosis; E46 Unspecified protein-calorie malnutrition; E87.0 Hyperosmolality and hypernatremia; E86.0 Dehydration; K27.9 Peptic ulcer, site unspecified, unspecified as acute or chronic, without hemorrhage or perforation; E78.5 Hyperlipidemia, unspecified; K21.9 Gastro-esophageal reflux disease without esophagitis; E11.65 Type 2 diabetes mellitus with hyperglycemia; E87.5 Hyperkalemia; R13.10 Dysphagia, unspecified; N31.2 Flaccid neuropathic bladder, not elsewhere classified; I12.9 Hypertensive chronic kidney disease with stage 1 through stage 4 chronic kidney disease, or unspecified chronic kidney disease; F31.9 Bipolar disorder, unspecified; E11.22 Type 2 diabetes mellitus with diabetic chronic kidney disease; F02.80 Dementia in other diseases classified elsewhere, unspecified severity, without behavioral disturbance, psychotic disturbance, mood disturbance, and anxiety; G30.9 Alzheimer's disease, unspecified; M19.90 Unspecified osteoarthritis, unspecified site; D50.9 Iron deficiency anemia, unspecified; I48.2 Chronic atrial fibrillation; N18.3 Chronic kidney disease, stage 3 (moderate); Z68.24 Body mass index [BMI] 24.0-24.9, adult; Z91.81 History of falling
CPT/HCPCS: 36415-UA; 36600-90; 71045-TC; 76700-TC; 76770-TC; 80053-TC; 80061-TC; 81001-TC; 82010-TC; 82150-TC; 82550-TC; 82553; 82803-TC; 82948-90; 83036-90; 83540-90; 83550-90; 83605; 83690-TC; 83735-TC; 83880-TC; 84100-TC; 84436-TC; 84443-TC; 84484-TC; 85007-TC; 85025-TC; 85610-TC; 86850-TC; 86900-TC; 86901-TC; 86922-TC; 87086-90; 93005; 94760; J0696; J1815; J1956; J2543; J3475; J7030; J7040; P9016; X7704; Z7610